=== PATIENT | female | born 1990 | race Caucasian/White ===

== ENCOUNTER 2018-07-11 03:52 | Observation (INO) ==
[2018-07-11] MEDS ORDERED: Piperacil/Tazo 3.375 GM Premix 50 ML IV.SIG ONE (04:58)
[2018-07-11] MEDS ORDERED: Sod Chloride 0.9% Inj 1,000 ML IV.SIG ONE (04:58)
--- NOTE | 2018-07-11 05:31 | ED ---
HPI General Chief complaint: Extremity Injury, Lower Stated complaint: wound on foot Time Seen by Provider: 07/11/18 04:19 Source: patient Mode of arrival: ambulatory Limitations: no limitations History of Present Illness HPI narrative: The patient is a 27 year old female who presents to the [facility] emergency department with a history of an infection in the right foot that began 1 month ago. She went to [facility] 06/05 and was treated with Keflex and Bactrim. It healed well, however 6 days ago, it began to hurt again in the heel and then became red, swollen, and hot to touch along the lateral aspect. She denies any trauma to the area. She went to [facility] again today , and was told that she had a heart murmur, lung infection on chest x-ray, suspicion for sepsis, therefore she would need to be admitted to the hospital. She was told that her loved ones could not stay with her in the hospital, therefore she left AMA. She has had a fever for 2 days with a tmax of 102. She has had chest pain and upper back pain that began 2 days ago. She reports that today she began to have shortness of breath with exertion. She reports that she has had a cough productive of yellow sputum. The patient reports that she is a daily smoker. The patient reports that she does use IV heroin, however she has not injected in her foot. On review of systems otherwise, the patient denies having any neck pain or stiffness, abdominal pain, vomiting, diarrhea, urinary symptoms, or neurologic symptoms. The patient cannot recall when her last menstrual cycle was. She reports that she is concerned that she could be . Related Data Allergies Allergy/AdvReac Type Severity Reaction Status Date / Time No Known Allergies Allergy Verified 07/11/18 03:55 Review of Systems ROS: all other systems reviewed are negative [facility] Medical History Medical History IV drug abuse (Acute) Patient denies medical problems (Acute) Surgical History Surgical History No history of previous surgery (Acute) Social History Social History Substance History: Active Abuse Smoking Status: Current every day smoker Tobacco Type: Cigarettes How Often Do You Have a Drink Containing Alcohol: Never Recent Travel in [facility] within the Last 8 Weeks: No Recent Out of Country Travel within the Last 8 Weeks: No Substance Abuse Detail Heroin: Substance Use Status: Active Route Used Substance Abuse: Intravenously Reason for Use: Calm Down Immunization History Tetanus Immunization: <5 Years Exam Const General: cooperative and well developed Nutritional Appearance: well nourished Orientation: alert, awake and oriented x3 HENMT Head: normocephalic and atraumatic Nose: no nasal discharge and no epistaxis Mouth: moist mucous membranes Throat: posterior oropharynx normal and uvula midline Eyes Sclera: normal sclerae Pupils: PERRL Neck Neck: no meningeal signs, trachea midline and no JVD Resp Effort & Inspection: no use of accessory muscles Auscultation: clear to auscultation bilaterally Cardio Rate: tachycardic (Sinus tachycardia in the low 100s. No pulse deficits to the extremities on simultaneous auscultation and palpation of her radial artery) Rhythm: regular rhythm Heart Sounds: no gallops, murmur (2/6 systolic murmur audible, no gallops or rubs.) systolic and no rubs GI Inspection: non-distended Palpation: soft, no hepatosplenomegaly, no guarding, not rigid and nontender Auscultation: normal bowel sounds Back/Spine/Pelvis Back: no CVA tenderness Cervical Spine: No cervical spinal tenderness Thoracic/Lumbar Spine: No thoracic spinal tenderness and No lumbar spinal tenderness Skin General: dry skin (warm) Neuro General: alert, awake, oriented x3 and other (Grossly nonfocal.) Speech: speech normal Motor: no movement abnormalities noted Extrem General: normal to inspection (Except in the area of interest, the right foot, see below), no calf tenderness, no clubbing, no cyanosis and edema (Right foot is erythematous and edematous. The area of erythema and edema is most prominent on the dorsal aspect along the side of the foot overlying the fourth and fifth metatarsal area. There is warmth and tenderness on palpation. No fluctuance or pointing. On the sole of the foot the patient is noted to have dry cracked skin at the base of the second toe. 2+ pulses in all 4 extremities. ) Laterality: on the right Psych Mood: congruent mood Affect: normal affect Judgment: judgment good Course Consultations Consultation #1: The patient's case including history, pertinent physical examination findings, and laboratory studies were discussed with Dr. Terry. It was agreed that the patient would be admitted to the hospitalist service. Initial Documented Vital Signs Temperature 99.3 F 07/11/18 03:55 Pulse Rate 114 H 07/11/18 03:55 Respiratory Rate 16 07/11/18 03:55 Blood Pressure 111/65 07/11/18 03:55 Pulse Oximetry 98 07/11/18 03:55 Last Documented Vital Signs Temperature 98.5 F 07/11/18 04:44 Pulse Rate 107 H 07/11/18 05:46 Respiratory Rate 14 07/11/18 04:44 Blood Pressure 92/60 L 07/11/18 04:44 Pulse Oximetry 97 07/11/18 05:20 Medical Decision Making MDM Narrative Medical decision making narrative: During the course of the patient's emergency department visit, the patient's history, examination, and differential diagnosis were reviewed with the patient. The patient was placed on a potline monitor with oximetry and frequent blood pressure monitoring. The patient had IV access obtained and blood work sent for analysis. A diagnostic evaluation was started regarding the patient's right foot redness, swelling, and warmth. The patient was initially provided normal saline 1 L IV fluid bolus, broad- spectrum antibiotic to include vancomycin 1 g IV, Zosyn 3.375 g IV. Records from [facility] will be obtained. 100, neutrophils 76.8, chemistries remarkable for sodium of 134The patient's diagnostic evaluation is remarkable for a normal white count of 7.4, hemoglobin 9.7, platelets, potassium 3.2, glucose 126, normal lactic acid at 1.6, calcium 8 , C-reactive protein elevated at 19, albumin 2.4. The patient's chest x-ray reveals interstitial disease which may reflect edema or atypical pneumonia. The patient will be admitted to the hospital for a new heart murmur, history of IV drug use rule out endocarditis with cellulitis involving the right foot. The patient's results were discussed with the patient, including the plan of care. I explained that further testing and/ or monitoring is indicated based on the patient's history, examination, and/ or laboratory findings. Therefore, I recommended admission for additional evaluation. The patient expressed understanding and was agreeable with this plan. The patient was admitted to the hospital in stable condition and sent to a bed under the care of the [facility] service. Medical Screen Exam Complete: Yes Emergency Medical Condition: Yes Differential Diagnosis Differential Diagnosis: Cellulitis, versus deep abscess, versus endocarditis, versus pneumonia, versus pyelonephritis Medical Records Medical records reviewed: Yes I reviewed the patient's medical records. Lab Data Lab results reviewed: Yes I reviewed the patient's lab results. Result diagrams: 07/11/18 05:20 07/11/18 05:20 POC Results POC Urine Results Negative Lab Results 07/11/18 07/11/18 07/11/18 Range/Units 05:20 05:20 05:20 WBC 7.4 (4.0-11.0) th/mm3 RBC 3.80 L (4.00-5.30) mil/mm3 Hgb 9.7 L (11.6-15.3) gm/dL Hct 28.5 L (35.0-46.0) % MCV 75.0 L (80.0-100.0) fL MCH 25.4 L (27.0-34.0) pg MCHC 33.9 (32.0-36.0) % RDW 16.3 (11.6-17.2) % Plt Count 100 L (150-450) th/mm3 MPV 9.0 (7.0-11.0) fL Neut % (Auto) 76.8 H (16.0-70.0) % Lymph % (Auto) 14.2 (9.0-44.0) % Dewitt % (Auto) 7.7 (0.0-8.0) % Eos % (Auto) 0.9 (0.0-4.0) % Baso % (Auto) 0.4 (0.0-2.0) % Neut # (Auto) 5.7 (1.8-7.7) th/mm3 Lymph # (Auto) 1.0 (1.0-4.8) th/mm3 Dewitt # (Auto) 0.6 (0.0-0.9) th/mm3 Eos # (Auto) 0.1 (0.0-0.4) th/mm3 Baso # (Auto) 0.0 (0.0-0.2) th/mm3 WBC Differential . Differential Comment Auto diff final ESR 37 H (0-20) mm/hr Sodium 134 L (136-145) meq/L Potassium 3.2 L (3.5-5.1) meq/L Chloride 102 (98-107) meq/L Carbon Dioxide 24.2 (21.0-32.0) meq/L Anion Gap 8 (5-15) meq/L BUN 8 (7-18) mg/dL Creatinine 0.64 (0.50-1.00) mg/dL Estimated GFR Greater than 89 (>89) mL/min Random Glucose 126 H (74-106) mg/dL Lactic Acid (0.4-2.0) mmol/L Calcium 8.0 L (8.5-10.1) mg/dL Total Bilirubin 0.3 (0.2-1.0) mg/dL AST 26 (15-37) U/L ALT 13 (10-53) U/L Alkaline Phosphatase 107 (45-117) U/L C-Reactive Protein 19.00 H (0.00-0.30) mg/dL Total Protein 6.8 (6.4-8.2) g/dL Albumin 2.4 L (3.4-5.0) g/dL 07/11/18 Range/Units 05:20 WBC (4.0-11.0) th/mm3 RBC (4.00-5.30) mil/mm3 Hgb (11.6-15.3) gm/dL Hct (35.0-46.0) % MCV (80.0-100.0) fL MCH (27.0-34.0) pg MCHC (32.0-36.0) % RDW (11.6-17.2) % Plt Count (150-450) th/mm3 MPV (7.0-11.0) fL Neut % (Auto) (16.0-70.0) % Lymph % (Auto) (9.0-44.0) % Dewitt % (Auto) (0.0-8.0) % Eos % (Auto) (0.0-4.0) % Baso % (Auto) (0.0-2.0) % Neut # (Auto) (1.8-7.7) th/mm3 Lymph # (Auto) (1.0-4.8) th/mm3 Dewitt # (Auto) (0.0-0.9) th/mm3 Eos # (Auto) (0.0-0.4) th/mm3 Baso # (Auto) (0.0-0.2) th/mm3 WBC Differential Differential Comment ESR (0-20) mm/hr Sodium (136-145) meq/L Potassium (3.5-5.1) meq/L Chloride (98-107) meq/L Carbon Dioxide (21.0-32.0) meq/L Anion Gap (5-15) meq/L BUN (7-18) mg/dL Creatinine (0.50-1.00) mg/dL Estimated GFR (>89) mL/min Random Glucose (74-106) mg/dL Lactic Acid 1.6 (0.4-2.0) mmol/L Calcium (8.5-10.1) mg/dL Total Bilirubin (0.2-1.0) mg/dL AST (15-37) U/L ALT (10-53) U/L Alkaline Phosphatase (45-117) U/L C-Reactive Protein (0.00-0.30) mg/dL Total Protein (6.4-8.2) g/dL Albumin (3.4-5.0) g/dL Imaging Data Radiologist's impression: Chest X-Ray 07/11/18 04:59 CONCLUSION: Interstitial disease as above this may reflect edema or atypical pneumonia. Followup examination is recommended if clinically indicated. Discharge Plan Discharge Disposition Patient Disposition: 30 Still Patient Discharge Details Diagnosis: Cellulitis, IVDU (intravenous drug user), Heart murmur Physicians Team ED Provider: Soumya Gaspar Primary Care Provider: UNKNOWN, Attending Provider: Fay Terry Discharge Interventions Interventions: Vital Signs Last Done: 07/11/18 04:44 Status ED Status: Admitted Patient
[2018-07-11 05:50] LABS: Baso % (Auto) 0.4 % (0.0-2.0); Eos # (Auto) 0.1 th/mm3 (0.0-0.4); Eos % (Auto) 0.9 % (0.0-4.0); Hematocrit 28.5 % (35.0-46.0); Hemoglobin 9.7 gm/dL (11.6-15.3); Lymph % (Auto) 14.2 % (9.0-44.0); Mean Corpuscular HGB Conc 33.9 % (32.0-36.0); Mean Corpuscular Hemoglobin 25.4 pg (27.0-34.0); Mono # (Auto) 0.6 th/mm3 (0.0-0.9); Mono % (Auto) 7.7 % (0.0-8.0); Neut # (Auto) 5.7 th/mm3 (1.8-7.7); Neut % (Auto) 76.8 % (16.0-70.0); Platelet Count 100 th/mm3 (150-450); Red Cell Distribution Width 16.3 % (11.6-17.2); White Blood Count 7.4 th/mm3 (4.0-11.0)
--- NOTE | 2018-07-11 06:00 | XR ---
EXAM DATE: 07/11/2018 4:59 AM EDT AGE/SEX: 27 years / Female INDICATIONS: Fever, short of breath. CLINICAL DATA: This is the patient's initial encounter. Patient reports that signs and symptoms have been present for 1 day and indicates a pain score of 5/10. MEDICAL/SURGICAL HISTORY: None. None. COMPARISON: No prior exams available for comparison. FINDINGS: The cardiac silhouette is normal in transverse diameter. There is interstitial disease bilaterally in the lower lobes and perihilar regions which may reflect edema or atypical pneumonia. There is subseg mental atelectasis in the both bases. No pleural effusions are identified. CONCLUSION: Interstitial disease as above this may reflect edema or atypical pneumonia. Followup examination is r ecommended if clinically indicated. Electronically signed by: Primo Andre MD 07/11/2018 5:59 AM EDT
[2018-07-11] MEDS: Vancomycin Inj 1 GM/200 ML PIGGYBACK IV.SIG ONE ×2 (06:04→07:05)
[2018-07-11 06:19] LABS: Albumin 2.4 g/dL (3.4-5.0); Anion Gap 8 meq/L (5-15); Aspartate Aminotransferase 26 U/L (15-37); Blood Urea Nitrogen 8 mg/dL (7-18); Carbon Dioxide 24.2 meq/L (21.0-32.0); Chloride 102 meq/L (98-107); Glomerular Filtration Rate Greater Than 89 mL/min (>89); Glucose,Random 126 mg/dL (74-106); Potassium 3.2 meq/L (3.5-5.1); Sodium 134 meq/L (136-145)
[2018-07-11 06:20] LABS: Alanine Aminotransferase 13 U/L (10-53)
[2018-07-11 06:22] LABS: Alkaline Phosphatase 107 U/L (45-117); Total Protein 6.8 g/dL (6.4-8.2)
[2018-07-11] MEDS ORDERED: Bisacodyl 10 MG Supp RECTAL PRN (06:43)
[2018-07-11] MEDS ORDERED: Vancomycin Consult Pharmacy OTHER PRN (06:47)
[2018-07-11] MEDS ORDERED: Ketorolac Inj 30 MG/ML (IVP) Vial IV.PUSH PRN (06:48)
[2018-07-11] MEDS ORDERED: Sodium Chloride 0.9% 2 ML Flush PRN IV.FLUSH (07:17)
[2018-07-11 07:57] LABS: Bacteria,Urine Occasional /hpf; Bilirubin,Urine Negative (Negative); Clarity,Urine Hazy (Clear); Color,Urine Yellow (Yellw/Straw); Glucose,Urine (UA) Negative (Negative); Leukocyte Esterase,Urine Large (Negative); Nitrite,Urine Negative (Negative); Specific Gravity,Urine 1.011 (1.002-1.035); Squamous Epithelial Cell,Urine 1 /hpf (0-5)
[2018-07-11] MEDS ORDERED: Vancomycin Inj 1,000 MG in Sodium Chlor 0.9% Inj 250 ML IV.SIG ONE (08:00)
[2018-07-11] MEDS ORDERED: Senna/Docusate Sodium 8.6/50 MG Tablet PO SCH (09:00)
[2018-07-11] MEDS ORDERED: Sodium Chloride 0.9% 2 ML Flush BID IV.FLUSH SCH (09:00)
[2018-07-11] MEDS ORDERED: Sod Chloride 0.9% Inj 1,000 ML IV.CONT SCH (09:45)
[2018-07-11] MEDS ORDERED: Piperacil/Tazo 3.375 GM Premix 50 ML IV.SIG SCH (12:00)
[2018-07-11] MEDS ORDERED: Morphine Sulfate 15 MG SR Tablet PO PRN (12:09)
--- NOTE | 2018-07-11 12:26 | P.HPIM ---
History of Present Illness Primary Care Physician: UNKNOWN History of Present Illness: Mrs. Weaver is a 27 year old female. She is admitted secondary to right foot cellulitis, she is also found to have urinary tract infection. However, given her history of IV drug abuse she is at risk for infective endocarditis as an etiology. Originally she was at [facility] and at that time she was septic. She does not meet sepsis criteria upon arrival and admitted to our hospital. The patient reports that she was told at [facility] that she would not be allowed any visitors, including family and parents, unless she was intubated and that if she want visitors she should come to [facility]. At [facility] he suspected that she had infective endocarditis. She does not complain of any pain but feels she might be starting early withdrawal. She reports using low amounts of heroin feels that her withdrawals might not be too bad. She has a previous infection of the same foot. At that time she had a fungal infection which turned into an open wound at the plantar surface of her middle toes. She was treated with Bactrim and Keflex as an outpatient several weeks ago and says that her infection resolved. Recently she has had a recurrence of redness and swelling including the dorsal surface of the foot and is not locating the exact same spot as the previous infection. He denies any needle use at that foot. Chest x-ray also shows evidence of possible pneumonia further raising suspicion for infective endocarditis. - Diagnosis (1) Cellulitis (2) IVDU (intravenous drug user) (3) Heart murmur Review of Systems Constitutional: fevers, no chills no night sweats, no fatigue, no weakness Eyes: No eye pain, no blurry vision, no loss of vision ENT: No sore throat, no ear pain, no rhinorrhea Cardiovascular: No chest pain, tachycardia, no palpitations, no shortness of breath, no syncope Respiratory: No wheezing, no cough, no shortness of breath, rapid respiratory rate Gastrointestinal: No abdominal pain, no black tarry stools, no bright red blood per rectum, no vomiting, no diarrhea Musculoskeletal: No joint pain, no muscle cramps, no stiffness Integumentary: No rash, no ulcers, no drainage, redness and swelling at right foot Neurologic: No sensory loss, no loss of motor function, no dizziness Psychiatric: No behavioral changes, no hallucinations, no suicidal ideations PMF - History History Provided By: Patient - Medical History Medical History: Medical History (Last Reviewed 07/11/18 @ 06:52 by Soumya Gaspar MD) IV drug abuse Patient denies medical problems - Surgical History Surgical History: Surgical History (Last Reviewed 07/11/18 @ 06:52 by Soumya Gaspar MD) No history of previous surgery - Family History Family History: Family History (Last Updated 07/11/18 @ 12:18 by Apolinar Salas MD) Other Osteoarthritis - Tobacco History Tobacco Use In Past 30 Days: Yes Smoking Status: Current every day smoker Tobacco Type: Cigarettes - Alcohol History How Often Do You Have a Drink Containing Alcohol: Never - Substance Use History Substance History: Active Abuse - Substance Use Type Heroin Status: Active Route Used: Intravenously Reason for Use: Calm Down - Travel History Recent Travel in the [place] Within the Last 8 Weeks: No Recent Travel Out of the Country Within the Last 8 Weeks: No - Immunization History Tetanus Immunization: <5 Years Medications and Allergies Active Medications: Active Medications Al Hydroxide/Mg Hydroxide (Milk Of Magnesia Liq) 30 ml PO Q12H PRN PRN Reason: Mild Constipation Bisacodyl (Dulcolax Supp) 10 mg RECTAL DAILY PRN PRN Reason: SEVERE CONSITIPATION Piperacillin/Tazobactam/Dextrose (Zosyn 3.375 Gm Premix) 50 mls @ 100 mls/hr IV.SIG Q6H EVANGELIST Sodium Chloride (Ns Inj) 1,000 mls @ 100 mls/hr IV.CONT .Q10H [facility]ANGELIST Ketorolac Tromethamine (Toradol Inj) 15 mg IV.PUSH Q6H PRN PRN Reason: PAIN SCALE 1 TO 10 Stop: 07/16/18 06:47 Lactulose (Lactulose Liq) 30 ml PO DAILY PRN PRN Reason: SEVERE CONSITIPATION Pharmacy Profile Note (Vancomycin Consult Pharmacy) 1 each OTHER UNSCH PRN PRN Reason: Pharmacy to dose Senna/Docusate Sodium (Sravanthi-Colace) 1 tab PO BID [facility] Last Admin: 07/11/18 08:06 Dose: Not Given Sennosides (Senokot) 17.2 mg PO Q12H PRN PRN Reason: Moderate Constipation Sodium Chloride (Ns Flush) 2 ml IV.FLUSH BID [facility] Last Admin: 07/11/18 08:06 Dose: 2 ml Sodium Chloride (Ns Flush) 2 ml IV.FLUSH PRN PRN PRN Reason: FLUSH AFTER USING IV ACCESS Allergies Allergy/AdvReac Type Severity Reaction Status Date / Time No Known Allergies Allergy Verified 07/11/18 03:55 Exam Vital signs: Vital Signs 07/11/18 03:55 07/11/18 04:44 07/11/18 05:20 Temperature 99.3 F 98.5 F Pulse Rate 114 H 103 H Respiratory Rate 16 14 Blood Pressure 111/65 92/60 L Pulse Oximetry 98 97 97 07/11/18 05:46 07/11/18 07:31 Temperature Pulse Rate 107 H 81 Respiratory Rate 21 Blood Pressure 89/50 L Pulse Oximetry 97 Intake & Output 07/10/18 07/11/18 07/11/18 18:59 06:59 18:59 Intake Total 1050 / 1050 Balance 1050 / 1050 Weight 78 kg Intake: IV 1050 / 1050 Zosyn 3.375 GM Premix 50 ML @ 50 / 50 100 mls/hr IV.SIG ONCE ONE Rx#: [id number] NS Inj 1,000 ML @ Wide Open IV. 1000 / 1000 SIG BOLUS ONE Rx#:[id number] Narrative: GENERAL: NAD, A&Ox3 HEAD: Normocephalic. NECK: Supple, trachea midline. No lymphadenopathy. EYES: No scleral icterus. No injection or drainage. CARDIOVASCULAR: Regular rate and rhythm, audible systolic cardiac murmur, gallops, or rubs. Louder than average Heart sounds. RESPIRATORY: Breath sounds equal bilaterally. No accessory muscle use. GASTROINTESTINAL: Abdomen soft, non-tender, nondistended. MUSCULOSKELETAL: No cyanosis, or edema. SKIN: Warm and dry. NEURO: No focal neurological deficits. Results - Labs CBC & Chem 7: 07/11/18 05:20 07/11/18 05:20 Labs: Short CBC 07/11/18 Range/Units 05:20 WBC 7.4 (4.0-11.0) th/mm3 Hgb 9.7 L (11.6-15.3) gm/dL Hct 28.5 L (35.0-46.0) % Plt Count 100 L (150-450) th/mm3 BMP 07/11/18 05:20 Sodium 134 L Potassium 3.2 L Chloride 102 Carbon Dioxide 24.2 BUN 8 Creatinine 0.64 Calcium 8.0 L Liver Function 07/11/18 Range/Units 05:20 Total Bilirubin 0.3 (0.2-1.0) mg/dL AST 26 (15-37) U/L ALT 13 (10-53) U/L Alkaline Phosphatase 107 (45-117) U/L Albumin 2.4 L (3.4-5.0) g/dL Urine 07/11/18 Range/Units 04:20 Urine Color Yellow (Yellw/Straw) Urine Clarity Hazy H (Clear) Urine pH 6.0 (5.0-8.5) Ur Specific [place] 1.011 (1.002-1.035) Urine Protein Negative (Neg-Trace) mg/dL Urine Glucose (UA) Negative (Negative) mg/dL - Imaging Impressions Chest X-Ray 07/11/18 04:59 CONCLUSION: Interstitial disease as above this may reflect edema or atypical pneumonia. Followup examination is recommended if clinically indicated. Caprini VTE Risk Assessment Caprini VTE Risk Assessment: Moderate/High Risk (score >= 2) Caprini Risk Assessment Model: Point Value = 1 Point Value = 2 Point Value = 3 Point Value = 5 Age 41-60 Minor surgery BMI > 25 kg/m2 Swollen legs Varicose veins or History of unexplained or recurrent spontaneous Oral contraceptives or hormone replacement Sepsis (< 1 month) Serious lung disease, including pneumonia (< 1 month) Abnormal pulmonary function Acute myocardial infarction Congestive heart failure (< 1 month) History of inflammatory bowel disease Medical patient at bed rest Age 61-74 Arthroscopic surgery Major open surgery (> 45 min) Laparoscopic surgery (> 45 min) Malignancy Confined to bed (> 72 hours) Immobilizing plaster cast Central venous access Age >= 75 History of VTE Family history of VTE Factor V Leiden Prothrombin 52744C Lupus anticoagulant Anticardiolipin antibodies Elevated serum homocysteine Heparin-induced thrombocytopenia Other congenital or acquired thrombophilia Stroke (< 1 month) Elective arthroplasty Hip, pelvis, or leg fracture Acute spinal cord injury (< 1 month) Prophylaxis Regimen: Total Risk Factor Score Risk Level Prophylaxis Regimen 0-1 Low Early ambulation 2 Moderate Order ONE of the following: *Sequential Compression Device (SCD) *Heparin 5000 units SQ BID 3-4 Higher Order ONE of the following medications: *Heparin 5000 units SQ TID *Enoxaparin/Lovenox 40 mg SQ daily (WT < 150 kg, CrCl > 30 mL/min) *Enoxaparin/Lovenox 30 mg SQ daily (WT < 150 kg, CrCl > 10-29 mL/min) *Enoxaparin/Lovenox 30 mg SQ BID (WT < 150 kg, CrCl > 30 mL/min) AND/OR *Sequential Compression Device (SCD) 5 or more Highest Order ONE of the following medications: *Heparin 5000 units SQ TID (Preferred with Epidurals) *Enoxaparin/Lovenox 40 mg SQ daily (WT < 150 kg, CrCl > 30 mL/min) *Enoxaparin/Lovenox 30 mg SQ daily (WT < 150 kg, CrCl > 10-29 mL/min) *Enoxaparin/Lovenox 30 mg SQ BID (WT < 150 kg, CrCl > 30 mL/min) AND *Sequential Compression Device (SCD) Assessment and Plan - Assessment (1) Cellulitis Code(s): L03.90 - Cellulitis, unspecified Status: Acute (2) IVDU (intravenous drug user) Code(s): F19.90 - Other psychoactive substance use, unspecified, uncomplicated Status: Acute (3) Heart murmur Code(s): R01.1 - Cardiac murmur, unspecified Status: Acute - Plan 27-year-old female admitted secondary to right foot cellulitis, UTI and suspected pneumonia. Suspected infective endocarditis with a history of IV drug abuse. Recent Sepsis Present, when fever was present Monitor for recurrence Treat infections Right foot cellulitis Continue vancomycin Probiotics Follow clinically for improvement Urinary tract infection Zosyn Follow urine culture Probiotics Possible pneumonia Etiology potentially related to infective endocarditis Vancomycin Zosyn Follow clinically Suspected infective endocarditis Echocardiogram Follow blood cultures Continue vancomycin If echo is positive or if blood cultures positive, will consider an ID consulti If severe cardiomyopathy is present, will consider a cardiology consult IV drug abuse Opioid withdraw Patient counseled to quit PRN long-acting morphine for any signs of withdrawal (Morphine SR, 15mg Q12hr PRN withdraw symptoms) Patient's blood pressure precludes ability to use clonidine for withdrawal Obtain: Hepatitis Panel, HIV screen, testing Hypotension IV hydration initiated Follow blood pressures DVT prophylaxis Heparin (1) Cellulitis Qualifiers: Site of cellulitis: extremity Site of cellulitis of extremity: lower extremity Laterality: right Qualified Code(s): L03.115 - Cellulitis of right lower limb
--- NOTE | 2018-07-11 12:41 | ECHRPT ---
Indication: POSS SEPSIS, ENDOCARDITIS CONCLUSIONS Normal left ventricular size. Wall thickness is normal. The left ventricular systolic function is normal with an estimated ejection fraction in the range of 55-60%. Trace aortic valve regurgitation. Findings consistent with vegetation on the tricuspid valve. There is moderate tricuspid regurgitation. The estimated pulmonary arterial pressure is 33.8 mmHg. Mild pulmonary valve regurgitation. 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 BP: / HR: Rhythm: Sinus MEASUREMENTS (Male / Female) Normal Values Technical Quality:Fair 2D ECHO LV Diastolic Diameter PLAX 4.9 cm 4.2 - 5.9 / 3.9 - 5.3 cm LV Systolic Diameter PLAX 3.5 cm IVS Diastolic Thickness 0.8 cm 0.6 - 1.0 / 0.6 - 0.9 cm LVPW Diastolic Thickness 0.8 cm 0.6 - 1.0 / 0.6 - 0.9 cm LV Relative Wall Thickness 0.3 RV Internal Dim ED PLAX 3.4 cm LVOT Diameter 1.9 cm Aortic Root Diameter 2.7 cm LA Systolic Diameter LX 3.6 cm 3.0 - 4.0 / 2.7 - 3.8 cm M-MODE AV Cusp Separation MM 1.9 cm DOPPLER AV Peak Velocity 136.0 cm/s AV Peak Gradient 7.4 mmHg AV Mean Gradient 4.0 mmHg AV Velocity Time Integral 23.4 cm LVOT Peak Velocity 105.0 cm/s LVOT Peak Gradient 4.4 mmHg LVOT Velocity Time Integral 19.7 cm AV Area Cont Eq vti 2.4 cm AV Area Cont Eq pk 2.2 cm LV E' Lateral Velocity 15.2 cm/s LV E' Septal Velocity 12.3 cm/s TR Peak Velocity 244.0 cm/s TR Peak Gradient 23.8 mmHg Right Atrial Pressure 10.0 mmHg Pulmonary Artery Systolic Pressu 33.8 mmHg Right Ventricular Systolic Press 33.8 mmHg PV Peak Velocity 82.7 cm/s PV Peak Gradient 2.7 mmHg FINDINGS LEFT VENTRICLE Normal left ventricular size. Wall thickness is normal. The left ventricular systolic function is normal with an estimated ejection fraction in the range of 55-60%. RIGHT VENTRICLE Normal right ventricular size and systolic function. LEFT ATRIUM The left atrial size is normal. RIGHT ATRIUM The right atrial size is normal. ATRIAL SEPTUM No atrial level shunt is demonstrated by color flow Doppler interrogation. AORTA The aortic root and proximal ascending aorta are normal in size on limited imaging. MITRAL VALVE Structurally normal mitral valve. No mitral valve stenosis or regurgitation. AORTIC VALVE Trace aortic valve regurgitation. Trileaflet aortic valve. TRICUSPID VALVE Findings consistent with vegetation on the tricuspid valve about 1cm non-septal leaflet. There is moderate tricuspid regurgitation. The estimated pulmonary arterial pressure is 33.8 mmHg. PULMONARY VALVE Mild pulmonary valve regurgitation. VESSELS The inferior vena cava is normal in size. PERICARDIUM No pericardial effusion. El Gaspar MD (Electronically Signed) Final Date:11 July 2018 12:40
[2018-07-11] MEDS ORDERED: Lactobacillus Acidophilus/L. Spores Tablet PO SCH (13:00)
[2018-07-11] MEDS ORDERED: Vancomycin Inj 1,000 MG in Sodium Chlor 0.9% Inj 250 ML IV.SIG SCH (16:00)
[2018-07-11 17:22] VITALS: BP 109/61; PULSE 101; RESP 16; TEMP 97.8; O2SAT 98
--- NOTE | 2018-07-11 18:31 | P.AMA ---
AMA Note - Diagnosis (1) Cellulitis (2) IVDU (intravenous drug user) (3) Heart murmur Recommended Treatment Course: Patient recommended to stay for antibiotics for treatment of possible infective endocarditis (echo results pending) to prevent permanent heart damage of . She left AMA. AMA Statement: Patient Francy Weaver has decided to leave the hospital against medical advice. This patient has the capacity to refuse care and understands the risks of leaving, including permanent disability and/or , and has had an opportunity to ask questions about his/her condition. The patient has been informed that he/she may return for care at any time, and follow up has been arranged/advised. Discharge Disposition: Against Medical Advice
[2018-07-11] MEDS ORDERED: Heparin - SQ 10,000 UNITS/ML Vial SQ SCH (21:00)
[2018-07-12] MEDS ORDERED: Pharmacy Ordered Lab Info OTHER ONE (07:45)
== END 2018-07-11 18:21 | disposition left against medical advice (07) ==
LOC: NEPC 03:52 → NEDA 06:36 → INTOOBSV 06:36 → N07 08:22
PROVIDERS: ADMIT Hospitalist; ATTEND Hospitalist

== ENCOUNTER 2018-07-12 16:12 | Inpatient (IN) ==
--- NOTE | 2018-07-12 17:15 | ED ---
HPI General Chief complaint: Skin/Abscess/Foreign Body Stated complaint: poss blood infection per pt Time Seen by Provider: 07/12/18 17:10 Source: patient Mode of arrival: ambulatory Limitations: no limitations History of Present Illness HPI narrative: Patient signed herself out yesterday, but today when she woke up and started to feel her arm tingling in her leg hurting more the patient decided to come in again. This time the patient states that she will not leave AMA as she is very scared for her life. Of particular note this patient has also signed himself sign herself AGAINST MEDICAL ADVICE out of [facility] as well. Patient reports that she uses IV heroin and that since her foot started hurting she does not use that site anymore. Onset (ago): day(s) (6) Radiation: other Severity: moderate Severity scale (1-10): 6 Quality: sharp Pain Consistency: constant Relieving factors: none Exacerbating factors: movement Associated symptoms: Reports other Treatments prior to arrival: Reports other Related Data Home Medications Medication Instructions Recorded Confirmed No Known Home Medications 07/12/18 07/12/18 Allergies Allergy/AdvReac Type Severity Reaction Status Date / Time No Known Allergies Allergy Verified 07/12/18 16:21 Review of Systems ROS: all other systems reviewed are negative PMFSH Medical History Medical History MDRO (multiple drug resistant organisms) resistance (Acute ~07/11/18) IV drug abuse (Acute) Patient denies medical problems (Acute) Surgical History Surgical History No history of previous surgery (Acute) Family History Family History Other Osteoarthritis Social History Social History Substance History: Active Abuse Second Hand Smoke Exposure: Yes Smoking Status: Current every day smoker Tobacco Type: Cigarettes How Often Do You Have a Drink Containing Alcohol: Never Recent Travel in [place] within the Last 8 Weeks: No Recent Out of Country Travel within the Last 8 Weeks: No Substance Abuse Detail Heroin: Route Used Substance Abuse: Intravenously Reason for Use: Calm Down Immunization History Tetanus Immunization: >5 Years Exam Narrative Exam Narrative: GENERAL: Well-nourished, well-developed patient in no apparent distress. SKIN: Warm and dry. Track lakhani noted throughout HEAD: Atraumatic. Normocephalic. EYES: Pupils equal and round. No scleral icterus. No injection or drainage. ENT: No nasal bleeding or discharge. Mucous membranes pink and moist. NECK: Trachea midline. No JVD. CARDIOVASCULAR: Tachycardic rate regular rhythm.... Holosystolic murmur noted without gallops RESPIRATORY: No accessory muscle use. Clear to auscultation. Breath sounds equal bilaterally. GASTROINTESTINAL: Abdomen soft, non-tender, nondistended. No rebound or guarding MUSCULOSKELETAL: Extremities without clubbing, cyanosis, or right lower extremity foot and mid tib-fib on right has 2+ edema associated with erythema and warmth but without any streaking or fluctuance. No obvious deformities. NEUROLOGICAL: Awake and alert. No obvious cranial nerve deficits. Motor grossly within normal limits. Five out of 5 muscle strength in the arms and legs. Normal speech. PSYCHIATRIC: Appropriate mood and affect; insight and judgment normal. Course Initial Documented Vital Signs Temperature 98.4 F 07/12/18 16:17 Pulse Rate 107 H 07/12/18 16:17 Respiratory Rate 18 07/12/18 16:17 Blood Pressure 106/65 07/12/18 16:17 Pulse Oximetry 98 07/12/18 16:17 Last Documented Vital Signs Temperature 98.4 F 07/17/18 04:00 Pulse Rate 65 07/17/18 04:00 Respiratory Rate 20 07/17/18 04:00 Blood Pressure 121/77 07/17/18 04:00 Pulse Oximetry 92 L 07/17/18 04:00 Medical Decision Making MDM Narrative Medical Screen Exam Complete: Yes Emergency Medical Condition: Yes Medical Records Medical records reviewed: Yes I reviewed the patient's medical records. Lab Data Lab results reviewed: Yes I reviewed the patient's lab results. Result diagrams: 07/17/18 03:54 07/17/18 03:54 POC Results POC Urine Results Negative Lab Results 07/12/18 07/12/18 07/12/18 Range/Units 16:15 16:15 16:15 WBC 7.8 (4.0-11.0) th/mm3 RBC 4.42 (4.00-5.30) mil/mm3 Hgb 11.2 L (11.6-15.3) gm/dL Hct 34.0 L (35.0-46.0) % MCV 76.9 L (80.0-100.0) fL MCH 25.3 L (27.0-34.0) pg MCHC 32.9 (32.0-36.0) % RDW 16.6 (11.6-17.2) % Plt Count 121 L (150-450) th/mm3 MPV 8.9 (7.0-11.0) fL Neut % (Auto) 78.0 H (16.0-70.0) % Lymph % (Auto) 15.3 (9.0-44.0) % Hill % (Auto) 5.8 (0.0-8.0) % Eos % (Auto) 0.7 (0.0-4.0) % Baso % (Auto) 0.2 (0.0-2.0) % Neut # (Auto) 6.1 (1.8-7.7) th/mm3 Lymph # (Auto) 1.2 (1.0-4.8) th/mm3 Hill # (Auto) 0.5 (0.0-0.9) th/mm3 Eos # (Auto) 0.1 (0.0-0.4) th/mm3 Baso # (Auto) 0.0 (0.0-0.2) th/mm3 WBC Differential . Differential Comment Auto diff final ESR (0-20) mm/hr Sodium 134 L (136-145) meq/L Potassium 3.5 (3.5-5.1) meq/L Chloride 100 (98-107) meq/L Carbon Dioxide 28.5 (21.0-32.0) meq/L Anion Gap 6 (5-15) meq/L BUN 7 (7-18) mg/dL Creatinine 0.84 (0.50-1.00) mg/dL Estimated GFR 81 L (>89) mL/min Random Glucose 122 H (74-106) mg/dL Calcium 8.8 D (8.5-10.1) mg/dL Iron (50-170) mcg/dL TIBC (250-450) mcg/dL % Saturation (20-50) % Ferritin (8-252) ng/mL Total Bilirubin (0.2-1.0) mg/dL Direct Bilirubin (0.0-0.2) mg/dL Indirect Bilirubin (0.0-0.8) mg/dL AST (15-37) U/L ALT (10-53) U/L Alkaline Phosphatase (45-117) U/L Total Protein (6.4-8.2) g/dL Albumin (3.4-5.0) g/dL Beta HCG, Qual (0-5) mIU/mL Urine Color Yellow (Yellw/Straw) Urine Clarity Hazy H (Clear) Urine pH 5.0 (5.0-8.5) Ur Specific [place] 1.023 (1.002-1.035) Urine Protein 100 H (Neg-Trace) mg/dL Urine Glucose (UA) Negative (Negative) mg/dL Urine Ketones Negative (Negative) mg/dL Urine Occult Blood Negative (Negative) Urine Nitrate Negative (Negative) Urine Bilirubin Negative (Negative) Urine Urobilinogen 2.0 H (Less than 2) mg/dL Ur Leukocyte Esterase Moderate H (Negative) Urine RBC 2 (0-3) /hpf Urine WBC 77 H (0-5) /hpf Ur Squamous Epith Cells 3 (0-5) /hpf Ur Transition Epith Cell <1 (None) /hpf Urine Bacteria Few H (None) /hpf Hyaline Casts 4 (0-3) /lpf Urine Mucus Few H (Occasional) /lpf Micro UA Comment Culture indicated Ur Microscopic Review Not Reportable Urine Culture Comments Culture indicated Vancomycin Trough (5.0-10.0) mcg/mL 07/12/18 07/12/18 07/12/18 Range/Units 16:15 16:15 16:15 WBC (4.0-11.0) th/mm3 RBC (4.00-5.30) mil/mm3 Hgb (11.6-15.3) gm/dL Hct (35.0-46.0) % MCV (80.0-100.0) fL MCH (27.0-34.0) pg MCHC (32.0-36.0) % RDW (11.6-17.2) % Plt Count (150-450) th/mm3 MPV (7.0-11.0) fL Neut % (Auto) (16.0-70.0) % Lymph % (Auto) (9.0-44.0) % Hill % (Auto) (0.0-8.0) % Eos % (Auto) (0.0-4.0) % Baso % (Auto) (0.0-2.0) % Neut # (Auto) (1.8-7.7) th/mm3 Lymph # (Auto) (1.0-4.8) th/mm3 Hill # (Auto) (0.0-0.9) th/mm3 Eos # (Auto) (0.0-0.4) th/mm3 Baso # (Auto) (0.0-0.2) th/mm3 WBC Differential Differential Comment ESR 58 H (0-20) mm/hr Sodium (136-145) meq/L Potassium (3.5-5.1) meq/L Chloride (98-107) meq/L Carbon Dioxide (21.0-32.0) meq/L Anion Gap (5-15) meq/L BUN (7-18) mg/dL Creatinine (0.50-1.00) mg/dL Estimated GFR (>89) mL/min Random Glucose (74-106) mg/dL Calcium (8.5-10.1) mg/dL Iron 48 L (50-170) mcg/dL TIBC 319 (250-450) mcg/dL % Saturation 15.0 L (20-50) % Ferritin 100 (8-252) ng/mL Total Bilirubin 0.4 (0.2-1.0) mg/dL Direct Bilirubin 0.1 (0.0-0.2) mg/dL Indirect Bilirubin 0.3 (0.0-0.8) mg/dL AST 20 (15-37) U/L ALT 18 (10-53) U/L Alkaline Phosphatase 148 H (45-117) U/L Total Protein 8.1 D (6.4-8.2) g/dL Albumin 2.7 L (3.4-5.0) g/dL Beta HCG, Qual Less than 1.0 (0-5) mIU/mL Urine Color (Yellw/Straw) Urine Clarity (Clear) Urine pH (5.0-8.5) Ur Specific [place] (1.002-1.035) Urine Protein (Neg-Trace) mg/dL Urine Glucose (UA) (Negative) mg/dL Urine Ketones (Negative) mg/dL Urine Occult Blood (Negative) Urine Nitrate (Negative) Urine Bilirubin (Negative) Urine Urobilinogen (Less than 2) mg/dL Ur Leukocyte Esterase (Negative) Urine RBC (0-3) /hpf Urine WBC (0-5) /hpf Ur Squamous Epith Cells (0-5) /hpf Ur Transition Epith Cell (None) /hpf Urine Bacteria (None) /hpf Hyaline Casts (0-3) /lpf Urine Mucus (Occasional) /lpf Micro UA Comment Ur Microscopic Review Urine Culture Comments Vancomycin Trough (5.0-10.0) mcg/mL 07/14/18 07/16/18 07/17/18 Range/Units 06:13 05:30 03:54 WBC 5.6 (4.0-11.0) th/mm3 RBC 3.95 L (4.00-5.30) mil/mm3 Hgb 9.9 L (11.6-15.3) gm/dL Hct 30.5 L (35.0-46.0) % MCV 77.2 L (80.0-100.0) fL MCH 25.2 L (27.0-34.0) pg MCHC 32.6 (32.0-36.0) % RDW 17.3 H (11.6-17.2) % Plt Count 215 D (150-450) th/mm3 MPV 7.7 (7.0-11.0) fL Neut % (Auto) 54.5 (16.0-70.0) % Lymph % (Auto) 38.4 (9.0-44.0) % Hill % (Auto) 5.3 (0.0-8.0) % Eos % (Auto) 0.7 (0.0-4.0) % Baso % (Auto) 1.1 (0.0-2.0) % Neut # (Auto) 3.1 (1.8-7.7) th/mm3 Lymph # (Auto) 2.2 (1.0-4.8) th/mm3 Hill # (Auto) 0.3 (0.0-0.9) th/mm3 Eos # (Auto) 0.0 (0.0-0.4) th/mm3 Baso # (Auto) 0.1 (0.0-0.2) th/mm3 WBC Differential . Differential Comment Auto diff final ESR (0-20) mm/hr Sodium (136-145) meq/L Potassium (3.5-5.1) meq/L Chloride (98-107) meq/L Carbon Dioxide (21.0-32.0) meq/L Anion Gap (5-15) meq/L BUN (7-18) mg/dL Creatinine 0.55 0.56 (0.50-1.00) mg/dL Estimated GFR Greater than 89 Greater than 89 (>89) mL/min Random Glucose (74-106) mg/dL Calcium (8.5-10.1) mg/dL Iron (50-170) mcg/dL TIBC (250-450) mcg/dL % Saturation (20-50) % Ferritin (8-252) ng/mL Total Bilirubin (0.2-1.0) mg/dL Direct Bilirubin (0.0-0.2) mg/dL Indirect Bilirubin (0.0-0.8) mg/dL AST (15-37) U/L ALT (10-53) U/L Alkaline Phosphatase (45-117) U/L Total Protein (6.4-8.2) g/dL Albumin (3.4-5.0) g/dL Beta HCG, Qual (0-5) mIU/mL Urine Color (Yellw/Straw) Urine Clarity (Clear) Urine pH (5.0-8.5) Ur Specific [place] (1.002-1.035) Urine Protein (Neg-Trace) mg/dL Urine Glucose (UA) (Negative) mg/dL Urine Ketones (Negative) mg/dL Urine Occult Blood (Negative) Urine Nitrate (Negative) Urine Bilirubin (Negative) Urine Urobilinogen (Less than 2) mg/dL Ur Leukocyte Esterase (Negative) Urine RBC (0-3) /hpf Urine WBC (0-5) /hpf Ur Squamous Epith Cells (0-5) /hpf Ur Transition Epith Cell (None) /hpf Urine Bacteria (None) /hpf Hyaline Casts (0-3) /lpf Urine Mucus (Occasional) /lpf Micro UA Comment Ur Microscopic Review Urine Culture Comments Vancomycin Trough 3.9 L 16.7 H (5.0-10.0) mcg/mL 07/17/18 Range/Units 03:54 WBC (4.0-11.0) th/mm3 RBC (4.00-5.30) mil/mm3 Hgb (11.6-15.3) gm/dL Hct (35.0-46.0) % MCV (80.0-100.0) fL MCH (27.0-34.0) pg MCHC (32.0-36.0) % RDW (11.6-17.2) % Plt Count (150-450) th/mm3 MPV (7.0-11.0) fL Neut % (Auto) (16.0-70.0) % Lymph % (Auto) (9.0-44.0) % Hill % (Auto) (0.0-8.0) % Eos % (Auto) (0.0-4.0) % Baso % (Auto) (0.0-2.0) % Neut # (Auto) (1.8-7.7) th/mm3 Lymph # (Auto) (1.0-4.8) th/mm3 Hill # (Auto) (0.0-0.9) th/mm3 Eos # (Auto) (0.0-0.4) th/mm3 Baso # (Auto) (0.0-0.2) th/mm3 WBC Differential Differential Comment ESR (0-20) mm/hr Sodium 136 (136-145) meq/L Potassium 4.0 (3.5-5.1) meq/L Chloride 102 (98-107) meq/L Carbon Dioxide 30.6 (21.0-32.0) meq/L Anion Gap 3 L (5-15) meq/L BUN 5 L (7-18) mg/dL Creatinine 0.57 (0.50-1.00) mg/dL Estimated GFR Greater than 89 (>89) mL/min Random Glucose 88 (74-106) mg/dL Calcium 8.2 L (8.5-10.1) mg/dL Iron (50-170) mcg/dL TIBC (250-450) mcg/dL % Saturation (20-50) % Ferritin (8-252) ng/mL Total Bilirubin 0.2 (0.2-1.0) mg/dL Direct Bilirubin (0.0-0.2) mg/dL Indirect Bilirubin (0.0-0.8) mg/dL AST 16 (15-37) U/L ALT 12 (10-53) U/L Alkaline Phosphatase 77 (45-117) U/L Total Protein 6.9 D (6.4-8.2) g/dL Albumin 2.1 L (3.4-5.0) g/dL Beta HCG, Qual (0-5) mIU/mL Urine Color (Yellw/Straw) Urine Clarity (Clear) Urine pH (5.0-8.5) Ur Specific [place] (1.002-1.035) Urine Protein (Neg-Trace) mg/dL Urine Glucose (UA) (Negative) mg/dL Urine Ketones (Negative) mg/dL Urine Occult Blood (Negative) Urine Nitrate (Negative) Urine Bilirubin (Negative) Urine Urobilinogen (Less than 2) mg/dL Ur Leukocyte Esterase (Negative) Urine RBC (0-3) /hpf Urine WBC (0-5) /hpf Ur Squamous Epith Cells (0-5) /hpf Ur Transition Epith Cell (None) /hpf Urine Bacteria (None) /hpf Hyaline Casts (0-3) /lpf Urine Mucus (Occasional) /lpf Micro UA Comment Ur Microscopic Review Urine Culture Comments Vancomycin Trough (5.0-10.0) mcg/mL Imaging Data Attestation: I personally reviewed and interpreted this imaging study as follows : Radiologist's impression: Abdomen Ultrasound 07/12/18 00:00 CONCLUSION: 1. No ascites. Abdomen/Bladder Ultrasound 07/12/18 00:00 CONCLUSION: 1. Splenomegaly. 2. Mild right renal pelviectasis. Foot CT 07/12/18 00:00 CONCLUSION: 1. Extensive soft tissue swelling of the foot especially on the dorsum and laterally most characteristic of cellulitis with suspected abscess around the fifth metatarsal head measuring up to 2 cm in diameter. No CT findings for osteomyelitis. Discharge Plan Discharge Disposition Patient Disposition: 30 Still Patient Discharge Condition Condition: Fair Discharge Details Diagnosis: Endocarditis Physicians Team ED Provider: Gene Savage Primary Care Provider: Primary Care Blake,Lety Attending Provider: Sukhdev Villalta Other Providers: Arvin Painter Dennis B Status ED Status: Left Department Discharge Information Discharge Date/Time: 07/12/18 18:55
[2018-07-12] MEDS ORDERED: Vancomycin Inj 1 GM/200 ML PIGGYBACK IV.SIG ONE (17:19)
[2018-07-12] MEDS ORDERED: Vancomycin Inj 1,000 MG in Sodium Chlor 0.9% Inj 250 ML IV.SIG ONE (17:30)
[2018-07-12] MEDS ORDERED: Sod Chloride 0.9% Inj 1,000 ML IV.CONT SCH (17:30)
[2018-07-12 17:45] LABS: Baso % (Auto) 0.2 % (0.0-2.0); Eos # (Auto) 0.1 th/mm3 (0.0-0.4); Eos % (Auto) 0.7 % (0.0-4.0); Hemoglobin 11.2 gm/dL (11.6-15.3); Lymph # (Auto) 1.2 th/mm3 (1.0-4.8); Lymph % (Auto) 15.3 % (9.0-44.0); Mean Corpuscular HGB Conc 32.9 % (32.0-36.0); Mean Corpuscular Hemoglobin 25.3 pg (27.0-34.0); Mean Corpuscular Volume 76.9 fL (80.0-100.0); Mean Platelet Volume 8.9 fL (7.0-11.0); Mono # (Auto) 0.5 th/mm3 (0.0-0.9); Mono % (Auto) 5.8 % (0.0-8.0); Neut # (Auto) 6.1 th/mm3 (1.8-7.7); Platelet Count 121 th/mm3 (150-450); Red Blood Count 4.42 mil/mm3 (4.00-5.30); Red Cell Distribution Width 16.6 % (11.6-17.2); White Blood Count 7.8 th/mm3 (4.0-11.0)
[2018-07-12 17:59] LABS: Bacteria,Urine Few /hpf; Bilirubin,Urine Negative (Negative); Clarity,Urine Hazy (Clear); Color,Urine Yellow (Yellw/Straw); Glucose,Urine (UA) Negative (Negative); Hyaline Casts,Urine 4 /lpf (0-3); Leukocyte Esterase,Urine Moderate (Negative); Mucus,Urine Few /lpf (Occasional); Nitrite,Urine Negative (Negative); Specific Gravity,Urine 1.023 (1.002-1.035); Squamous Epithelial Cell,Urine 3 /hpf (0-5); Transitional Epi Cells,Urine <1 /hpf
--- NOTE | 2018-07-12 17:59 | P.HP ---
History of Present Illness Service: [facility] service Chief Complaint: Fever chills History of Present Illness: Patient is a 27-year-old female who admits to IV drug use heroin injected to the left AC area last use was this morning who came to the hospital because of fever and chills. Patient was admitted July 11 here for right foot infection. Review of records shows blood cultures to be positive for gram- positive cocci 4 out of 4 bottles on July 10. An echo was also done which showed positive tricuspid valve vegetation. ESR was 37. CRP 96. Patient left AMA. \ On further history patient was actually admitted to [facility] about 4 or 5 weeks ago because of sepsis which is secondary to a right foot infection. Patient states that she was discharged on Keflex plus Bactrim which she took for 10 days and this improved /resolved. About 3-4 days prior to admission redness of the foot recurred. Patient denies injecting any drugs to this foot. Associated with fever and chills came back to the ER on July 10. And as mentioned sign out AGAINST MEDICAL ADVICE. Patient also has history of hep C diagnosed in 2017. Patient states she was also tested for HIV then which was negative. She mentioned about some plan for treatment for Hep C but did not push through Patient has been amenorrheic for 4 months. Patient also complains of abdominal fullness. Denies any melena or hematochezia. Admitted for further evaluation and management Inpatient Certification: I certify that the inpatient services were ordered in accordance with Medicare regulations governing the order. This includes certification that hospital inpatient services are reasonable and necessary and in the case of services not specified as inpatient-only under 42 CFR 419.22(n), that they are appropriately provided as inpatient services in accordance to with the 2-midnight benchmark under 43 CFR 412.3(e) Estimated Total Length of Stay (Days): 2 Plans for Post Hospital Care: Not yet determined Review of Systems Positive fever chills denies any nausea vomiting but complains of abdominal fullness. Denies any melena or hematochezia. PMFSH - History History Provided By: Patient - Medical History Medical History: Medical History (Last Updated 07/14/18 @ 07:36 by Luiza Miles) MDRO (multiple drug resistant organisms) resistance Onset Date: ~07/11/18 IV drug abuse Patient denies medical problems - Surgical History Surgical History: Surgical History (Last Reviewed 07/12/18 @ 17:25 by Gene Savage) No history of previous surgery - Family History Family History: Family History (Last Reviewed 07/12/18 @ 17:25 by Gene Savage) Other Osteoarthritis - Tobacco History Second Hand Smoke Exposure: Yes Tobacco Use In Past 30 Days: Yes Smoking Status: Current every day smoker Tobacco Type: Cigarettes - Alcohol History How Often Do You Have a Drink Containing Alcohol: Never - Substance Use History Substance History: Active Abuse - Substance Use Type Heroin Route Used: Intravenously Reason for Use: Calm Down - Travel History Recent Travel in the [place] Within the Last 8 Weeks: No Recent Travel Out of the Country Within the Last 8 Weeks: No - Immunization History Tetanus Immunization: >5 Years Medications and Allergies Active Medications: Active Medications Sodium Chloride (Ns Inj) 1,000 mls @ 125 mls/hr IV.CONT .Q8H [facility] Stop: 07/13/18 01:29 Last Admin: 07/12/18 17:46 Dose: 125 mls/hr Vancomycin HCl 1,000 mg/ (Sodium Chloride) 250 mls @ 200 mls/hr IV.SIG ONCE ONE Stop: 07/12/18 18:44 Last Admin: 07/12/18 17:46 Dose: 200 mls/hr Allergies Allergy/AdvReac Type Severity Reaction Status Date / Time No Known Allergies Allergy Verified 07/12/18 16:21 Home Medications Medication Instructions Recorded Confirmed Type No Known Home Medications 07/12/18 07/12/18 History Exam Vital signs: Vital Signs 07/12/18 16:17 Temperature 98.4 F Pulse Rate 107 H Respiratory Rate 18 Blood Pressure 106/65 Pulse Oximetry 98 Intake & Output 07/11/18 07/12/1818 18:59 06:59 18:59 Weight 54.431 kg Narrative: Awake alert oriented x3 not in any acute distress Anicteric sclerae Neck was supple no JVD no bruit no lymphadenopathy Chest lungs bilateral breath sounds decreased no rales no wheezes Regular rhythm tachycardic soft 3/6 systolic murmur left sternal border Abdomen- soft, slightly distended, good bowel sounds Extremities right foot swelling, + hot to touch, swollen lateral malleolar area positive erythema on the lateral aspect of the foot + tenderness and mild induration. Moves all extremities toes equally. Results - Labs CBC & Chem 7: 07/12/18 16:15 07/16/18 05:30 Labs: Laboratory Results - last 24 hr 07/12/18 16:15 WBC 7.8 RBC 4.42 Hgb 11.2 L Hct 34.0 L MCV 76.9 L MCH 25.3 L MCHC 32.9 RDW 16.6 Plt Count 121 L MPV 8.9 Neut % (Auto) 78.0 H Lymph % (Auto) 15.3 [place] % (Auto) 5.8 Eos % (Auto) 0.7 Baso % (Auto) 0.2 Neut # (Auto) 6.1 Lymph # (Auto) 1.2 [place] # (Auto) 0.5 Eos # (Auto) 0.1 Baso # (Auto) 0.0 WBC Differential . Differential Comment Auto diff final Caprini VTE Risk Assessment Caprini VTE Risk Assessment: No/Low Risk (score <= 1) ([facility]) Caprini Risk Assessment Model: Point Value = 1 Point Value = 2 Point Value = 3 Point Value = 5 Age 41-60 Minor surgery BMI > 25 kg/m2 Swollen legs Varicose veins or History of unexplained or recurrent spontaneous Oral contraceptives or hormone replacement Sepsis (< 1 month) Serious lung disease, including pneumonia (< 1 month) Abnormal pulmonary function Acute myocardial infarction Congestive heart failure (< 1 month) History of inflammatory bowel disease Medical patient at bed rest Age 61-74 Arthroscopic surgery Major open surgery (> 45 min) Laparoscopic surgery (> 45 min) Malignancy Confined to bed (> 72 hours) Immobilizing plaster cast Central venous access Age >= 75 History of VTE Family history of VTE Factor V Leiden Prothrombin [id number] Lupus anticoagulant Anticardiolipin antibodies Elevated serum homocysteine Heparin-induced thrombocytopenia Other congenital or acquired thrombophilia Stroke (< 1 month) Elective arthroplasty Hip, pelvis, or leg fracture Acute spinal cord injury (< 1 month) Prophylaxis Regimen: Total Risk Factor Score Risk Level Prophylaxis Regimen 0-1 Low Early ambulation 2 Moderate Order ONE of the following: *Sequential Compression Device (SCD) *Heparin 5000 units SQ BID 3-4 Higher Order ONE of the following medications: *Heparin 5000 units SQ TID *Enoxaparin/Lovenox 40 mg SQ daily (WT < 150 kg, CrCl > 30 mL/min) *Enoxaparin/Lovenox 30 mg SQ daily (WT < 150 kg, CrCl > 10-29 mL/min) *Enoxaparin/Lovenox 30 mg SQ BID (WT < 150 kg, CrCl > 30 mL/min) AND/OR *Sequential Compression Device (SCD) 5 or more Highest Order ONE of the following medications: *Heparin 5000 units SQ TID (Preferred with Epidurals) *Enoxaparin/Lovenox 40 mg SQ daily (WT < 150 kg, CrCl > 30 mL/min) *Enoxaparin/Lovenox 30 mg SQ daily (WT < 150 kg, CrCl > 10-29 mL/min) *Enoxaparin/Lovenox 30 mg SQ BID (WT < 150 kg, CrCl > 30 mL/min) AND *Sequential Compression Device (SCD) Assessment and Plan - Plan 27-year-old female with Gram-positive sepsis secondary IV drug use Tricuspid valve endocarditis Right foot cellulitis rule out abscess -Get repeat blood cultures -ESR was 37. CRP was 19. -Start patient on IV vancomycin - Get a CT of the right foot- r/o abscess - Podiatry consult if positive for any deeper tissue collection/ infection - Consult infectious disease service for recommendation -Start IV Vancomycin - consult pharmacy Persistent pyuria. - get US of the kidneys/bladder - Reviewed urine culture from July 11 no growth in 24 hours - We will follow urine cultures sent from ER from today Abdominal distention suspicious for ascites history of hepatitis C cirrhosis - get US - check for ascites - tap if significant Anemia likely from chronic disease microcytic - Check iron studies IVDU= patient counselled extensively
[2018-07-12 18:04] LABS: Calcium 8.8 mg/dL (8.5-10.1); Carbon Dioxide 28.5 meq/L (21.0-32.0); Potassium 3.5 meq/L (3.5-5.1)
[2018-07-12] MEDS ORDERED: Vancomycin Consult Pharmacy OTHER PRN (18:15)
--- NOTE | 2018-07-12 18:21 | CT ---
EXAM DATE: 07/12/2018 5:49 PM EDT AGE/SEX: 27 years / Female INDICATIONS: Pain and possible infection in right foot. CLINICAL DATA: This is the patient's initial encounter. Patient reports that signs and symptoms have been present for 2 days and indicates a pain score of 10/10. MEDICAL/SURGICAL HISTORY: . IV drug user. None. RADIATION DOSE: 7.29 CTDI (mGy) COMPARISON: No prior exams available for comparison. TECHNIQUE: Multiple contiguous axial images were acquired using a multirow detector CT scanner witho ut contrast. Multiplanar reconstruction was performed in the sagittal and coronal planes. Using auto mated exposure control and adjustment of the mA and/or kV according to patient size, radiation dose w as kept as low as reasonably achievable to obtain optimal diagnostic quality images. DICOM format im age data is available electronically for review and comparison. FINDINGS: There is fairly extensive soft tissue swelling on the dorsum foot and extending laterally over the fo ot and also laterally over the ankle. There is a suspected loculated fluid collection around the fift h metatarsal head measuring up to 2.1 cm in diameter which may represent a subcutaneous abscess. No b rebekah destructive change identified to suggest osteomyelitis on CT no acute fracture or dislocation. CONCLUSION: 1. Extensive soft tissue swelling of the foot especially on the dorsum and laterally most characteri stic of cellulitis with suspected abscess around the fifth metatarsal head measuring up to 2 cm in di ameter. No CT findings for osteomyelitis. Electronically signed by: Kong Borja MD 07/12/2018 6:20 PM EDT
[2018-07-12 19:06] LABS: Albumin 2.7 g/dL (3.4-5.0)
[2018-07-12 19:09] LABS: Total Protein 8.1 g/dL (6.4-8.2)
--- NOTE | 2018-07-12 20:23 | US ---
EXAM DATE: 07/12/2018 12:00 AM EDT AGE/SEX: 27 years / Female INDICATIONS: Persistent pyuria. CLINICAL DATA: This is the patient's initial encounter. Patient reports that signs and symptoms have been present for 2 days and indicates a pain score of 0/10. MEDICAL/SURGICAL HISTORY: Hepatitis C. Cirrhosis. Sepsis. IVDU. None. COMPARISON: No prior exams available for comparison. MEASUREMENTS: Right Kidney:__12.6 x 4.9 x 5.8 cm Left Kidney:__11.2 x 5.3 x 6.5 cm FINDINGS: Right Kidney: Mild pelviectasis. No focal mass. Left Kidney: Normal echotexture and cortical thickness. No mass or hydronephrosis. Bladder: Within normal limits given the degree of distension. Other: Spleen is enlarged up to 17.1 cm. CONCLUSION: 1. Splenomegaly. 2. Mild right renal pelviectasis. Electronically signed by: Benja Dodson MD 07/12/2018 8:22 PM EDT
--- NOTE | 2018-07-12 20:25 | US ---
EXAM DATE: 07/12/2018 12:00 AM EDT AGE/SEX: 27 years / Female INDICATIONS: Abdominal distention with a history of Hepatitis C. CLINICAL DATA: This is the patient's initial encounter. Patient reports that signs and symptoms have been present for 1 day and indicates a pain score of 0/10. MEDICAL/SURGICAL HISTORY: Hepatitis C. Cirrhosis. Sepsis. IVDU. None. COMPARISON: [facility], [place] KIDNEY/RENAL/BLADDER, 07/12/2018. . FINDINGS: Masses: None Fluid Collections: None Other: None. CONCLUSION: 1. No ascites. Electronically signed by: Benja Dodson MD 07/12/2018 8:24 PM EDT
[2018-07-12] MEDS: Acetaminophen 325 MG Tablet PO PRN (23:20)
[2018-07-13] MEDS ORDERED: Sodium Chloride 0.9% 2 ML Flush PRN IV.FLUSH (01:40)
[2018-07-13] MEDS: Acetaminophen 325 MG Tablet PO PRN ×2 (03:33→12:50)
[2018-07-13] MEDS: Vancomycin Inj 1,000 MG in Sodium Chlor 0.9% Inj 250 ML IV.SIG SCH ×2 (05:48→17:20)
[2018-07-13] MEDS: Sodium Chloride 0.9% 2 ML Flush BID IV.FLUSH SCH ×2 (09:25→20:16)
--- NOTE | 2018-07-13 10:21 | P.PN ---
Subjective Interval history: feels "weak" going for OR today- Podiatry procedure T max 102. 3 midnight- now 99 Physical Exam Vital signs: Vital Signs 07/12/18 16:17 07/12/18 18:30 07/12/18 20:00 Temperature 98.4 F 100.4 F H Pulse Rate 107 H 127 H 122 H Respiratory Rate 18 16 16 Blood Pressure 106/65 140/77 Pulse Oximetry 98 95 96 07/12/18 22:00 07/13/18 00:00 07/13/18 04:00 Temperature 103.0 F H 102.3 F H 98.3 F Pulse Rate 110 H 93 H Respiratory Rate 16 16 Blood Pressure 110/55 L 101/65 Pulse Oximetry 93 L 95 07/13/18 04:52 07/13/18 08:00 Temperature 99.0 F Pulse Rate 89 98 H Respiratory Rate 20 Blood Pressure 120/79 Pulse Oximetry 95 Intake & Output 07/12/18 07/13/18 07/13/18 18:59 06:59 18:59 Intake Total 1979 / 1979 Output Total 300 / 300 Balance 1680 / 1680 Weight 54.431 kg 55.3 kg Intake: IV 1500 / 1500 NS Inj 1,000 ML @ 125 mls/hr IV 1000 / 1000 .CONT .Q8H [facility] Rx#:[id number] Vancomycin Inj 1,000 MG In NS 500 / 500 Inj 250 ML @ 250 mls/hr IV.SIG Q12H [facility] Rx#:[id number] Oral 480 / 480 Output: Urine 300 / 300 Other: Weight On Admission 54.431 kg Narrative: Awake alert oriented x3 not in any acute distress Anicteric sclerae Neck was supple no JVD no bruit no lymphadenopathy Chest lungs bilateral breath sounds decreased no rales no wheezes Regular rhythm tachycardic soft 3/6 systolic murmur left sternal border Abdomen- soft, slightly distended, good bowel sounds Extremities right foot swelling, + hot to touch, swollen lateral malleolar area positive erythema on the lateral aspect of the foot + tenderness and mild induration. Moves all extremities toes equally. Results - Labs CBC & Chem 7: 07/12/18 16:15 07/12/18 16:15 Laboratory Results - last 24 hr 07/12/18 07/12/18 07/12/18 16:15 16:15 16:15 WBC 7.8 RBC 4.42 Hgb 11.2 L Hct 34.0 L MCV 76.9 L MCH 25.3 L MCHC 32.9 RDW 16.6 Plt Count 121 L MPV 8.9 Neut % (Auto) 78.0 H Lymph % (Auto) 15.3 [place] % (Auto) 5.8 Eos % (Auto) 0.7 Baso % (Auto) 0.2 Neut # (Auto) 6.1 Lymph # (Auto) 1.2 [place] # (Auto) 0.5 Eos # (Auto) 0.1 Baso # (Auto) 0.0 WBC Differential . Differential Comment Auto diff final ESR Sodium 134 L Potassium 3.5 Chloride 100 Carbon Dioxide 28.5 Anion Gap 6 BUN 7 Creatinine 0.84 Estimated GFR 81 L Random Glucose 122 H Calcium 8.8 D Iron TIBC % Saturation Ferritin Total Bilirubin Direct Bilirubin Indirect Bilirubin AST ALT Alkaline Phosphatase Total Protein Albumin Beta HCG, Qual Urine Color Yellow Urine Clarity Hazy H Urine pH 5.0 Ur Specific [place] 1.023 Urine Protein 100 H Urine Glucose (UA) Negative Urine Ketones Negative Urine Occult Blood Negative Urine Nitrate Negative Urine Bilirubin Negative Urine Urobilinogen 2.0 H Ur Leukocyte Esterase Moderate H Urine RBC 2 Urine WBC 77 H Ur Squamous Epith Cells 3 Ur Transition Epith Cell <1 Urine Bacteria Few H Hyaline Casts 4 Urine Mucus Few H Micro UA Comment Culture indicated Ur Microscopic Review Not Reportable Urine Culture Comments Culture indicated 07/12/18 07/12/18 07/12/18 16:15 16:15 16:15 WBC RBC Hgb Hct MCV MCH MCHC RDW Plt Count MPV Neut % (Auto) Lymph % (Auto) [place] % (Auto) Eos % (Auto) Baso % (Auto) Neut # (Auto) Lymph # (Auto) [place] # (Auto) Eos # (Auto) Baso # (Auto) WBC Differential Differential Comment ESR 58 H Sodium Potassium Chloride Carbon Dioxide Anion Gap BUN Creatinine Estimated GFR Random Glucose Calcium Iron 48 L TIBC 319 % Saturation 15.0 L Ferritin 100 Total Bilirubin 0.4 Direct Bilirubin 0.1 Indirect Bilirubin 0.3 AST 20 ALT 18 Alkaline Phosphatase 148 H Total Protein 8.1 D Albumin 2.7 L Beta HCG, Qual Less than 1.0 Urine Color Urine Clarity Urine pH Ur Specific [place] Urine Protein Urine Glucose (UA) Urine Ketones Urine Occult Blood Urine Nitrate Urine Bilirubin Urine Urobilinogen Ur Leukocyte Esterase Urine RBC Urine WBC Ur Squamous Epith Cells Ur Transition Epith Cell Urine Bacteria Hyaline Casts Urine Mucus Micro UA Comment Ur Microscopic Review Urine Culture Comments Microbiology 07/12/18 16:15 Blood - Peripheral Aerobic Blood Culture - Preliminary gram positive cocci 07/12/18 16:15 Blood - Peripheral Anaerobic Blood Culture - Preliminary gram positive cocci 07/12/18 16:15 Blood - Peripheral Aerobic Blood Culture - Preliminary gram positive cocci 07/12/18 16:15 Blood - Peripheral Anaerobic Blood Culture - Preliminary gram positive cocci - Imaging Impressions Abdomen Ultrasound 07/12/18 00:00 CONCLUSION: 1. No ascites. Abdomen/Bladder Ultrasound 07/12/18 00:00 CONCLUSION: 1. Splenomegaly. 2. Mild right renal pelviectasis. Foot CT 07/12/18 00:00 CONCLUSION: 1. Extensive soft tissue swelling of the foot especially on the dorsum and laterally most characteristic of cellulitis with suspected abscess around the fifth metatarsal head measuring up to 2 cm in diameter. No CT findings for osteomyelitis. Assessment and Plan - Plan 27-year-old female with Gram-positive sepsis secondary IV drug use Tricuspid valve endocarditis Right foot cellulitis rule out abscess -Get repeat blood cultures -ESR was 37. CRP was 19. -Start patient on IV vancomycin - Get a CT of the right foot- r/o abscess - Podiatry consult if positive for any deeper tissue collection/ infection - Consult infectious disease service for recommendation -Start IV Vancomycin - consult pharmacy Persistent pyuria. - get US of the kidneys/bladder - Reviewed urine culture from July 11 no growth in 24 hours - We will follow urine cultures sent from ER from today history of hepatitis C cirrhosis - US- no ascites Anemia microcytic - low iron/feritin stores - start Iron 325 mg bid IVDU= patient counselled extensively
[2018-07-13] MEDS: Ferrous Sulfate 325 MG Tablet PO SCH ×2 (14:34→20:15)
--- NOTE | 2018-07-13 14:38 | MB ---
cc: Arvin Painter MD DATE: 07/13/2018 REQUESTING PHYSICIAN: Dr. Villalta. REASON FOR CONSULTATION: Gram-positive bacteremia, positive tricuspid valve vegetation. HISTORY OF PRESENT ILLNESS: This is a 27-year-old white female who presented to the emergency department on 2 occasions. The patient presented on 07/11/2018 and she was complaining of right foot injury and pain. The patient is an IV drug user. She reports that she was evaluated at [facility] on the day before she presented to the emergency department here on 07/11/2018. She had a wound on her right foot, which had recurred with erythema. She had previously been treated at [facility] on 06/05/2018 and was given antibiotic outpatient p.o. She reports that the cellulitis of her foot, which was being treated, improved. She notes that she contacted water and the same area became infected again and she went to [facility] for evaluation on 07/09/2018. It was recommended that she be admitted to the hospital for treatment. However, she states that she was not happy because they were not going to allow her to have visitors and she left the hospital and came to [place] the following day. On 07/11/2018 when she arrived at [place], she was evaluated and blood cultures were taken. She reported having fevers and also pain in the upper back and shortness of breath. The patient left against medical advice. Blood cultures were taken on 07/11/2018 and the results show MRSA. The patient was home overnight and she came back the following day because she was having tingling in her arm and also pain in her right foot where she has erythema and swelling. She states that she used IV drugs while she was out of the hospital again. It was found that the blood culture had bacteria from 07/11/2018. Repeated blood cultures were again taken on admission yesterday and it has gram-positive cocci in all 4 bottles. Urinalysis yesterday showed increased white cells. Urinalysis from 07/11/2018 had increased white cells and again repeated urinalysis on 07/12/2018 had increased white cells as well. Urine culture is pending. The white blood cell count is normal. The patient states that she was feeling like she had withdrawal symptoms. She had a temperature of 103 degrees yesterday. Denies prior history of bacteria in the blood. She notes that she uses heroin IV. PAST MEDICAL HISTORY: IV drug abuse. Denies medical problems. ALLERGIES: NO KNOWN DRUG ALLERGIES. MEDICATIONS: 1. Vancomycin. 2. Tylenol p.r.n. SOCIAL HISTORY: Positive tobacco use. No alcohol. Positive IV drug abuse. The patient has a 4-year-old daughter. REVIEW OF SYSTEMS: All systems have been reviewed and are negative except for that mentioned in the history of present illness. PHYSICAL EXAMINATION: GENERAL: She is a thin female who is in no acute distress. She is awake, alert and oriented. She looks clinically ill. VITAL SIGNS: Temperature 100.3, BP 126/77, respirations 20, heart rate 116. HEENT: The head is atraumatic. Extraocular movements grossly intact. Pupils reactive to light. No icterus. No conjunctival erythema. Oropharynx: Moist mucosa. No thrush. No lesions. NECK: Supple without adenopathy. HEART: A 1/6 systolic murmur at the left sternal border. ABDOMEN: Bowel sounds present. Soft, nontender. RECTAL: Not performed. EXTREMITIES: The right foot has swelling at the fifth toe and at the lateral aspect of the foot beyond the fifth toe. There is erythema and increased warmth and significant tenderness on palpation. No petechial or embolic lesion visible. SKIN: The skin has no diffuse rash. NEUROLOGIC: Nonfocal. PSYCHIATRIC: The patient is calm and cooperative. LABORATORY DATA: WBC 7.8, platelet count 121, hemoglobin 11.2. Sedimentation rate 58, creatinine 0.84. Estimated GFR 81. Sodium 134, AST and ALT normal. IMAGIN. CT scan of the foot shows extensive soft tissue swelling, especially in the dorsum and laterally most characteristic of cellulitis with suspected abscess around the fifth metatarsal head, measuring up to 2 cm in diameter. 2. Abdominal ultrasound revealed splenomegaly. There was also moderate tricuspid regurgitation. IMPRESSION: 1. 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 2. Cellulitis and abscess of the right foot, probably secondary to seeding from endocarditis. 3. Persistent fever. 4. Persistent bacteremia. 5. Probable urinary tract infection. RECOMMENDATIONS: 1. Continue vancomycin. 2. Monitor the blood cultures including sensitivity of the MRSA. 3. Monitor temperature. 4. Monitor urine culture. 5. Monitor clinical status. 6. Repeat blood cultures to check for clearance tomorrow. 7. The patient will need IV antibiotic treatment for endocarditis. Thank you for this consultation. Further recommendations will be made upon followup. I have reviewed the laboratory data, radiographic studies and microbiologic data in making treatment recommendations on this patient. MD USMAN Mann/melanie , 02:03 PM , 02:22 PM
[2018-07-13] MEDS ORDERED: Chlorhexidine Gluconate 2% 1 Pack (2 Cloths) TOPICAL SCH (15:29)
[2018-07-13] MEDS ORDERED: Metoprolol Tartrate 25 MG Tablet PO SCH (15:29)
[2018-07-13] MEDS ORDERED: Sodium Chlor 0.9% Inj 500 ML IV.SIG SCH (16:00)
[2018-07-13] MEDS ORDERED: Bupivacaine 0.25% Inj 50 ML MDV Vial ONE (18:56)
--- NOTE | 2018-07-13 19:30 | P.CONPOD ---
History of Present Illness Service: Podiatry Consult date: 07/13/18 Reason for Consult: right foot abscess Primary Care Provider: No Primary Care Physician Chief Complaint: Fever chills History of Present Illness: Patient has failed out patient antibiotics for right foot infection. Denies injecting drugs into the area. She has had increased pain/redness to the outer right foot. Review of Systems All other systems reviewed negative except as stated in HPI PMFSH - History History Provided By: Patient - Medical History Medical History: Medical History (Last Updated 07/14/18 @ 07:36 by Luiza Miles) MDRO (multiple drug resistant organisms) resistance Onset Date: ~07/11/18 IV drug abuse Patient denies medical problems - Surgical History Surgical History: Surgical History (Last Reviewed 07/12/18 @ 17:25 by Gene Savage) No history of previous surgery - Family History Family History: Family History (Last Reviewed 07/12/18 @ 17:25 by Gene Savage) Other Osteoarthritis - Tobacco History Second Hand Smoke Exposure: Yes Tobacco Use In Past 30 Days: Yes Smoking Status: Current every day smoker Tobacco Type: Cigarettes - Alcohol History How Often Do You Have a Drink Containing Alcohol: Never - Substance Use History Substance History: Active Abuse - Substance Use Type Heroin Status: Active Route Used: Intravenously Frequency: daily Reason for Use: Calm Down - Travel History Recent Travel in the [place] Within the Last 8 Weeks: No Recent Travel Out of the Country Within the Last 8 Weeks: No - Immunization History Tetanus Immunization: >5 Years Tetanus Immunization Year if Known: 2017 Hx Influenza Vaccine This Season: No Medications and Allergies Active Medications: Active Medications Acetaminophen (Tylenol) 650 mg PO Q4H PRN PRN Reason: temp > 100.4 Last Admin: 07/13/18 12:50 Dose: 650 mg Chlorhexidine Gluconate (Chlorhexidine 2% Cloth) 3 pack TOPICAL CARDIAC CATH TECHNICIAN [facility] Stop: 07/14/18 15:28 Ferrous Sulfate (Ferosul) 325 mg PO BID [facility] Last Admin: 07/13/18 14:34 Dose: Not Given Vancomycin HCl 1,000 mg/ (Sodium Chloride) 250 mls @ 250 mls/hr IV.SIG Q12H [facility] Last Infusion: 07/13/18 18:37 Dose: Infused Lactated Ringer's (Lr 1000 Ml Inj) 1,000 mls @ 30 mls/hr IV.SIG .Q24H [facility] Stop: 07/14/18 15:29 Last Admin: 07/13/18 17:20 Dose: 30 mls/hr Sodium Chloride (Ns Inj) 500 mls @ 30 mls/hr IV.SIG .[id number] [facility] Stop: 07/14/18 08:39 Last Admin: 07/13/18 18:38 Dose: Not Given Metoprolol Tartrate (Lopressor) 25 mg PO CARDIAC CATH TECHNICIAN [facility] Stop: 07/14/18 15:28 Miscellaneous Information [place] [place] Info[place] 1 each OTHER ONCE ONE Stop: 07/14/18 05:46 Pharmacy Profile Note (Vancomycin Consult Pharmacy) 1 each OTHER UNSCH PRN PRN Reason: Pharmacy to dose Povidone Iodine (Betadine 5% Antisepsis Kit) 1 applicatio EACH [facility] CARDIAC CATH TECHNICIAN [facility] Stop: 07/14/18 15:28 Sodium Chloride (Ns Flush) 2 ml IV.FLUSH BID [facility] Last Admin: 07/13/18 09:25 Dose: 2 ml Sodium Chloride (Ns Flush) 2 ml IV.FLUSH PRN PRN PRN Reason: FLUSH AFTER USING IV ACCESS Allergies Allergy/AdvReac Type Severity Reaction Status Date / Time No Known Allergies Allergy Verified 07/12/18 16:21 Home Medications Medication Instructions Recorded Confirmed Type No Known Home Medications 07/12/18 07/12/18 History Physical Exam Vital signs: Vital Signs 07/12/18 20:00 07/12/18 22:00 07/13/18 00:00 Temperature 100.4 F H 103.0 F H 102.3 F H Pulse Rate 122 H 110 H Respiratory Rate 16 16 Blood Pressure 140/77 110/55 L Pulse Oximetry 96 93 L 07/13/18 04:00 07/13/18 04:52 07/13/18 08:00 Temperature 98.3 F 99.0 F Pulse Rate 93 H 89 88 Respiratory Rate 16 20 Blood Pressure 101/65 120/79 Pulse Oximetry 95 95 07/13/18 12:00 07/13/18 13:04 07/13/18 16:00 Temperature 100.3 F H 102.7 F H 98.8 F Pulse Rate 109 H 94 H Respiratory Rate 20 20 Blood Pressure 126/77 110/71 Pulse Oximetry 95 96 Intake & Output 07/13/18 07/13/18 07/14/18 06:59 18:59 06:59 Intake Total 1979 / 1979 250 / 250 Output Total 300 / 300 Balance 1680 / 1680 250 / 250 Weight 55.3 kg Intake: IV 1500 / 1500 250 / 250 NS Inj 1,000 ML @ 125 mls/hr IV 1000 / 1000 .CONT .Q8H [facility] Rx#:[id number] Vancomycin Inj 1,000 MG In NS 500 / 500 250 / 250 Inj 250 ML @ 250 mls/hr IV.SIG Q12H [facility] Rx#:[id number] Oral 480 / 480 Output: Urine 300 / 300 Other: # Voids 2 Weight On Admission 54.431 kg Results - Labs CBC & Chem 7: 07/12/18 16:15 07/14/18 06:13 Laboratory Results - last 24 hr 07/12/18 16:15 ESR 58 H Microbiology 07/12/18 16:15 Clean Catch Urine Urine Culture - Preliminary No growth in 24 hours 07/12/18 16:15 Blood - Peripheral Aerobic Blood Culture - Preliminary gram positive cocci 07/12/18 16:15 Blood - Peripheral Anaerobic Blood Culture - Preliminary gram positive cocci 07/12/18 16:15 Blood - Peripheral Aerobic Blood Culture - Preliminary gram positive cocci 07/12/18 16:15 Blood - Peripheral Anaerobic Blood Culture - Preliminary gram positive cocci - Imaging Impressions Abdomen Ultrasound 07/12/18 00:00 CONCLUSION: 1. No ascites. Abdomen/Bladder Ultrasound 07/12/18 00:00 CONCLUSION: 1. Splenomegaly. 2. Mild right renal pelviectasis. Assessment and Plan - Assessment (1) Abscess of right foot Code(s): L02.611 - Cutaneous abscess of right foot Status: Acute Plan: to OR for I&D abscess right foot Risks, benefits, complications discussed with patient
[2018-07-13] MEDS ORDERED: Lidocaine PF 1% Inj 5 ML Syringe OTHER ONE (19:37)
[2018-07-13] MEDS ORDERED: Ketorolac Inj 30 MG/ML (IVP) Vial IV.PUSH ONE (19:37)
[2018-07-13] MEDS ORDERED: fentaNYL Citrate Inj 100 MCG/2 ML Ampul ONE (20:15)
[2018-07-13] MEDS ORDERED: Morphine Inj 4 MG/ML Vial ONE (20:16)
--- NOTE | 2018-07-13 20:19 | P.BOP ---
- Preoperative Diagnosis (1) Abscess of right foot - Postoperative Diagnosis (1) Abscess of right foot Date of procedure: 07/13/18 Procedure: Incision and drainage of abscess right foot Incision made over 5th metatarsal head area, dorsolaterally, and subcutaneous abscess encountered with purulent drainage. Culture taken, irrigation with 3L normal saline, and nylon suture with 1/4'' iodoform gauze packing applied in the area. Dressing applied. No tourniquet utilized. Weightbearing as tolerated right foot in surgical shoe. No further surgery anticipated Packing to be changed daily per nursing and at home upon discharge. Await cultures to guide antibiotic choice Anesthesia: GETA, local (10mL 0.25% marcaine plain) Surgeon: Dorita Bang DPM Automatic Equipment Technician: staff Estimated blood loss (mL): 5 Pathology: other (culture right foot) Condition: stable Disposition: PACU
[2018-07-13] MEDS ORDERED: *Meperidine Inj 25 MG/ML Vial PERIprocedural Use ONLY ONE (20:23)
[2018-07-14] MEDS: Acetaminophen 325 MG Tablet PO PRN (01:45)
[2018-07-14] MEDS ORDERED: Pharmacy Ordered Lab Info OTHER ONE (05:45)
[2018-07-14] MEDS: Vancomycin Inj 1,000 MG in Sodium Chlor 0.9% Inj 250 ML IV.SIG SCH (06:17)
[2018-07-14 06:53] LABS: Glomerular Filtration Rate Greater Than 89 mL/min (>89); Vancomycin,Trough 3.9 mcg/mL (5.0-10.0)
[2018-07-14] MEDS: Sodium Chloride 0.9% 2 ML Flush BID IV.FLUSH SCH ×2 (09:30→21:21)
[2018-07-14] MEDS: Dextrose 5%/NaCl 0.9% Inj 1,000 ML IV.CONT SCH ×2 (09:48→20:38)
--- NOTE | 2018-07-14 10:48 | P.PNID ---
Subjective Remarks: Patient states she feels better. Reports that his shoulders and not as achy. Reports less pain in the right foot. Blood culture 07/12/2018 has gram-positive cocci ID pending. Blood culture from 07/11/2018 has MRSA. Afebrile. Admitted with tingling in her arm and also pain in her right foot where she had erythema and swelling. She is an IV drug user. Blood cultures are positive for MRSA. Echocardiogram showed tricuspid valve vegetation. Allergies/Adverse Reactions: Allergies No Known Allergies Allergy (Verified 07/12/18 16:21) Objective Vital Signs 07/13/18 12:00 07/13/18 13:04 07/13/18 16:00 Temperature 100.3 F H 102.7 F H 98.8 F Pulse Rate 109 H 94 H Respiratory Rate 20 20 Blood Pressure 126/77 110/71 Pulse Oximetry 95 96 07/13/18 20:00 07/13/18 20:05 07/13/18 20:10 Temperature 99.1 F 99.3 F Pulse Rate 99 H 93 H 93 H Respiratory Rate 18 18 24 Blood Pressure 110/56 L 90/52 L 100/58 L Pulse Oximetry 96 92 L 98 07/13/18 20:15 07/13/18 20:30 07/14/18 00:00 Temperature 99.0 F 97.8 F Pulse Rate 94 H 96 H 73 Respiratory Rate 25 H 25 H 18 Blood Pressure 104/57 L 107/59 L 114/67 Pulse Oximetry 98 97 95 07/14/18 04:00 07/14/18 08:00 Temperature 97.3 F L 97.4 F L Pulse Rate 75 73 Respiratory Rate 18 20 Blood Pressure 118/65 95/54 L Pulse Oximetry 95 95 Intake & Output 07/13/18 07/14/18 07/14/18 18:59 06:59 18:59 Intake Total 250 / 250 1030 / 1030 250 / 250 Output Total 255 / 255 Balance 250 / 250 775 / 775 250 / 250 Weight 56.9 kg Intake: IV 250 / 250 200 / 200 250 / 250 LR 1000 mL Inj 1,000 ML @ 30 200 / 200 mls/hr IV.SIG .Q24H [facility] Rx#: [id number] Vancomycin Inj 1,000 MG In NS 250 / 250 250 / 250 Inj 250 ML @ 250 mls/hr IV.SIG Q12H [facility] Rx#:[id number] Oral 230 / 230 Anesthesia Amount 600 / 600 Output: Urine 250 / 250 Estimated Blood Loss 5 / 5 Other: # Voids 2 # Bowel Movements 0 07/12/18 16:15 Clean Catch Urine Urine Culture - Final No growth in 48 hours 07/13/18 19:58 Wound - Foot Gram Stain - Final 07/13/18 19:58 Wound - Foot Wound Culture - Pending 07/13/18 19:58 Wound - Foot Acid Fast Bacilli Smear - Pending 07/13/18 19:58 Wound - Foot Mycobacterial Culture - Pending 07/13/18 19:58 Wound - Foot Fungal Smear - Pending 07/13/18 19:58 Wound - Foot Fungal Culture - Pending 07/12/18 16:15 Blood - Peripheral Aerobic Blood Culture - Preliminary gram positive cocci 07/12/18 16:15 Blood - Peripheral Anaerobic Blood Culture - Preliminary gram positive cocci 07/12/18 16:15 Blood - Peripheral Aerobic Blood Culture - Preliminary gram positive cocci 07/12/18 16:15 Blood - Peripheral Anaerobic Blood Culture - Preliminary gram positive cocci Lab - Hematology Results 07/12/18 07/12/18 16:15 16:15 WBC 7.8 RBC 4.42 Hgb 11.2 L Hct 34.0 L MCV 76.9 L MCH 25.3 L MCHC 32.9 RDW 16.6 Plt Count 121 L MPV 8.9 Neut % (Auto) 78.0 H Lymph % (Auto) 15.3 [place] % (Auto) 5.8 Eos % (Auto) 0.7 Baso % (Auto) 0.2 Neut # (Auto) 6.1 Lymph # (Auto) 1.2 [place] # (Auto) 0.5 Eos # (Auto) 0.1 Baso # (Auto) 0.0 WBC Differential . Differential Comment Auto diff final ESR 58 H Lab - Chemistry Results 07/12/18 07/12/18 07/12/18 16:15 16:15 16:15 Sodium 134 L Potassium 3.5 Chloride 100 Carbon Dioxide 28.5 Anion Gap 6 BUN 7 Creatinine 0.84 Estimated GFR 81 L Random Glucose 122 H Calcium 8.8 D Iron 48 L TIBC 319 % Saturation 15.0 L Ferritin 100 Total Bilirubin 0.4 Direct Bilirubin 0.1 Indirect Bilirubin 0.3 AST 20 ALT 18 Alkaline Phosphatase 148 H Total Protein 8.1 D Albumin 2.7 L Beta HCG, Qual Less than 1.0 07/14/18 06:13 Sodium Potassium Chloride Carbon Dioxide Anion Gap BUN Creatinine 0.55 Estimated GFR Greater than 89 Random Glucose Calcium Iron TIBC % Saturation Ferritin Total Bilirubin Direct Bilirubin Indirect Bilirubin AST ALT Alkaline Phosphatase Total Protein Albumin Beta HCG, Qual Imaging: ITS Impressions Abdomen Ultrasound 07/12/18 00:00 CONCLUSION: 1. No ascites. Abdomen/Bladder Ultrasound 07/12/18 00:00 CONCLUSION: 1. Splenomegaly. 2. Mild right renal pelviectasis. Foot CT 07/12/18 00:00 CONCLUSION: 1. Extensive soft tissue swelling of the foot especially on the dorsum and laterally most characteristic of cellulitis with suspected abscess around the fifth metatarsal head measuring up to 2 cm in diameter. No CT findings for osteomyelitis. Physical Exam: PHYSICAL EXAMINATION: GENERAL: No acute distress. She is awake, alert and oriented. She looks clinically ill. HEENT: The head is atraumatic. Extraocular movements grossly intact. Pupils reactive to light. No icterus. No conjunctival erythema. Oropharynx: Moist mucosa. No thrush. No lesions. NECK: Supple without adenopathy. HEART: A 1/6 systolic murmur at the left sternal border. ABDOMEN: Bowel sounds present. Soft, nontender. EXTREMITIES: The right foot has swelling. Post I and D. No petechial or embolic lesion visible. SKIN: The skin has no diffuse rash. NEUROLOGIC: Nonfocal. PSYCHIATRIC: The patient is calm and cooperative. Assessment and Plan - Plan IMPRESSION: 1. 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 2. Cellulitis and abscess of the right foot, probably secondary to seeding from endocarditis. RECOMMENDATIONS: 1. Continue vancomycin. 2. Monitor the blood cultures including sensitivity of the MRSA. 3. Monitor temperature. 4. Monitor wound culture. 5. Monitor clinical status. 6. Repeat blood cultures. 7. The patient will need IV antibiotic treatment for endocarditis.
[2018-07-14] MEDS: Ferrous Sulfate 325 MG Tablet PO SCH ×2 (10:56→21:18)
--- NOTE | 2018-07-14 12:41 | P.PN ---
Subjective Interval history: afebrile complains of right foot pain no diarrhea, nausea or vomiting feels sweating and like getting withdrawal from drug use Physical Exam Vital signs: Vital Signs 07/13/18 13:04 07/13/18 16:00 07/13/18 20:00 Temperature 102.7 F H 98.8 F 99.1 F Pulse Rate 94 H 99 H Respiratory Rate 20 18 Blood Pressure 110/71 110/56 L Pulse Oximetry 96 96 07/13/18 20:05 07/13/18 20:10 07/13/18 20:15 Temperature 99.3 F Pulse Rate 93 H 93 H 94 H Respiratory Rate 18 24 25 H Blood Pressure 90/52 L 100/58 L 104/57 L Pulse Oximetry 92 L 98 98 07/13/18 20:30 07/14/18 00:00 07/14/18 04:00 Temperature 99.0 F 97.8 F 97.3 F L Pulse Rate 96 H 73 75 Respiratory Rate 25 H 18 18 Blood Pressure 107/59 L 114/67 118/65 Pulse Oximetry 97 95 95 07/14/18 08:00 07/14/18 12:00 Temperature 97.4 F L 97.5 F L Pulse Rate 73 85 Respiratory Rate 20 20 Blood Pressure 95/54 L 115/61 Pulse Oximetry 95 93 L Intake & Output 07/13/18 07/14/18 07/14/18 18:59 06:59 18:59 Intake Total 250 / 250 1030 / 1030 250 / 250 Output Total 255 / 255 Balance 250 / 250 775 / 775 250 / 250 Weight 56.9 kg Intake: IV 250 / 250 200 / 200 250 / 250 LR 1000 mL Inj 1,000 ML @ 30 200 / 200 mls/hr IV.SIG .Q24H [facility] Rx#: [id number] Vancomycin Inj 1,000 MG In NS 250 / 250 250 / 250 Inj 250 ML @ 250 mls/hr IV.SIG Q12H [facility] Rx#:[id number] Oral 230 / 230 Anesthesia Amount 600 / 600 Output: Urine 250 / 250 Estimated Blood Loss 5 / 5 Other: # Voids 2 # Bowel Movements 0 Narrative: Awake alert oriented x3 not in any acute distress Anicteric sclerae Neck was supple no JVD no bruit no lymphadenopathy Chest lungs bilateral breath sounds decreased no rales no wheezes Regular rhythm tachycardic soft 3/6 systolic murmur left sternal border Abdomen- soft, slightly distended, good bowel sounds Extremities right foot -dressing in place Results - Labs CBC & Chem 7: 07/12/18 16:15 07/14/18 06:13 Laboratory Results - last 24 hr 07/14/18 06:13 Creatinine 0.55 Estimated GFR Greater than 89 Vancomycin Trough 3.9 L Microbiology 07/13/18 19:58 Wound - Foot Gram Stain - Final 07/13/18 19:58 Wound - Foot Wound Culture - Preliminary gram positive cocci 07/12/18 16:15 Blood - Peripheral Aerobic Blood Culture - Final S. aureus MRSA 07/12/18 16:15 Blood - Peripheral Anaerobic Blood Culture - Final S. aureus MRSA 07/12/18 16:15 Blood - Peripheral Aerobic Blood Culture - Final S. aureus MRSA 07/12/18 16:15 Blood - Peripheral Anaerobic Blood Culture - Final S. aureus MRSA 07/12/18 16:15 Clean Catch Urine Urine Culture - Final No growth in 48 hours - Procedures 07/13- right foot I and D Assessment and Plan - Plan 27-year-old female with MRSA sepsis secondary to right foot abscess Tricuspid valve endocarditis Right foot abscess S/P I and D 07/13 -ff repeat cultures to ensure clearance -Podiatry and ID ff -on Vancomycin Pyuria. -voiding no pain today - renal US unremarkable - Reviewed urine culture from July 11 no growth - history of hepatitis C cirrhosis - US- no ascites Anemia microcytic - low iron/feritin stores - Iron 325 mg bid IVDU= patient counselled extensively - start methadone 2.5 mg daily
[2018-07-14] MEDS: Methadone 10 MG Tablet PO SCH (13:32)
[2018-07-14] MEDS: Vancomycin Inj 1,250 MG in Sodium Chlor 0.9% Inj 250 ML IV.SIG SCH ×2 (14:38→21:19)
--- NOTE | 2018-07-14 18:12 | P.PNPOD ---
Subjective Interval history: s/p I&D Right foot abscess Physical Exam Vital signs: Vital Signs 07/13/18 20:00 07/13/18 20:05 07/13/18 20:10 Temperature 99.1 F 99.3 F Pulse Rate 99 H 93 H 93 H Respiratory Rate 18 18 24 Blood Pressure 110/56 L 90/52 L 100/58 L Pulse Oximetry 96 92 L 98 07/13/18 20:15 07/13/18 20:30 07/14/18 00:00 Temperature 99.0 F 97.8 F Pulse Rate 94 H 96 H 73 Respiratory Rate 25 H 25 H 18 Blood Pressure 104/57 L 107/59 L 114/67 Pulse Oximetry 98 97 95 07/14/18 04:00 07/14/18 08:00 07/14/18 12:00 Temperature 97.3 F L 97.4 F L 97.5 F L Pulse Rate 75 73 80 Respiratory Rate 18 20 20 Blood Pressure 118/65 95/54 L 115/61 Pulse Oximetry 95 95 93 L 07/14/18 16:00 07/14/18 16:01 Temperature 98.1 F Pulse Rate 81 80 Respiratory Rate 20 Blood Pressure 104/64 Pulse Oximetry 93 L Intake & Output 07/13/18 07/14/18 07/14/18 18:59 06:59 18:59 Intake Total 250 / 250 1030 / 1030 992.5 / 992.5 Output Total 255 / 255 600 / 600 Balance 250 / 250 775 / 775 392.5 / 392.5 Weight 56.9 kg Intake: IV 250 / 250 200 / 200 512.5 / 512.5 LR 1000 mL Inj 1,000 ML @ 30 200 / 200 mls/hr IV.SIG .Q24H [facility] Rx#: [id number] Vancomycin Inj 1,000 MG In NS 250 / 250 250 / 250 Inj 250 ML @ 250 mls/hr IV.SIG Q12H [facility] Rx#:[id number] Vancomycin Inj 1,250 MG In NS 262.5 / 262.5 Inj 250 ML @ 250 mls/hr IV.SIG Q8H [facility] Rx#:[id number] Oral 230 / 230 480 / 480 Anesthesia Amount 600 / 600 Output: Urine 250 / 250 600 / 600 Estimated Blood Loss 5 / 5 Other: # Voids 2 # Bowel Movements 0 Narrative: right foot dressing changed today. Clean, dry, intact. Reducing erythema Medications and Allergies Active Medications: Active Medications Acetaminophen (Tylenol) 650 mg PO Q4H PRN PRN Reason: temp > 100.4 Last Admin: 07/14/18 01:45 Dose: 650 mg Ferrous Sulfate (Ferosul) 325 mg PO BID [facility] Last Admin: 07/14/18 10:56 Dose: 325 mg Vancomycin HCl 1,250 mg/ (Sodium Chloride) 262.5 mls @ 250 mls/hr IV.SIG Q8H [facility] Last Infusion: 07/14/18 16:17 Dose: Infused Dextrose/Sodium Chloride (D5w/Normal Saline Inj) 1,000 mls @ 100 mls/hr IV.CONT .Q10H [facility] Last Admin: 07/14/18 09:48 Dose: 100 mls/hr Methadone HCl (Dolophine) 2.5 mg PO DAILY [facility] Last Admin: 07/14/18 13:32 Dose: 2.5 mg Miscellaneous (Pill Splitter) 1 each OTHER UNSCH [facility] Miscellaneous Information [place] 1 each OTHER UNSCH PRN PRN Reason: SEE LABEL COMMENTS Stop: 07/14/18 20:04 Miscellaneous Information [place] Ordered Lab Info) 0 each OTHER ONCE ONE Stop: 07/16/18 05:46 Pharmacy Profile Note (Vancomycin Consult Pharmacy) 1 each OTHER UNSCH PRN PRN Reason: Pharmacy to dose Sodium Chloride (Ns Flush) 2 ml IV.FLUSH BID [facility] Last Admin: 07/14/18 09:30 Dose: 2 ml Sodium Chloride (Ns Flush) 2 ml IV.FLUSH PRN PRN PRN Reason: FLUSH AFTER USING IV ACCESS Allergies Allergy/AdvReac Type Severity Reaction Status Date / Time No Known Allergies Allergy Verified 07/12/18 16:21 Home Medications Medication Instructions Recorded Confirmed Type No Known Home Medications 07/12/18 07/12/18 History Results - Labs CBC & Chem 7: 07/12/18 16:15 07/14/18 06:13 Laboratory Results - last 24 hr 07/14/18 06:13 Creatinine 0.55 Estimated GFR Greater than 89 Vancomycin Trough 3.9 L Microbiology 07/13/18 19:58 Wound - Foot Acid Fast Bacilli Smear - Final No acid fast bacilli seen 07/13/18 19:58 Wound - Foot Fungal Smear - Final No fungal elements seen 07/13/18 19:58 Wound - Foot Gram Stain - Final 07/13/18 19:58 Wound - Foot Wound Culture - Preliminary gram positive cocci 07/12/18 16:15 Blood - Peripheral Aerobic Blood Culture - Final S. aureus MRSA 07/12/18 16:15 Blood - Peripheral Anaerobic Blood Culture - Final S. aureus MRSA 07/12/18 16:15 Blood - Peripheral Aerobic Blood Culture - Final S. aureus MRSA 07/12/18 16:15 Blood - Peripheral Anaerobic Blood Culture - Final S. aureus MRSA 07/12/18 16:15 Clean Catch Urine Urine Culture - Final No growth in 48 hours - Procedures 07/13- right foot I and D Assessment and Plan - Assessment (1) Abscess of right foot Code(s): L02.611 - Cutaneous abscess of right foot Status: Acute Plan: Continue daily irrigation/packing right foot Continue IV antibiotics. No further surgical intervention planned at this time Weightbearing as tolerated right foot
[2018-07-15] MEDS: Vancomycin Inj 1,250 MG in Sodium Chlor 0.9% Inj 250 ML IV.SIG SCH ×3 (05:17→21:00)
[2018-07-15] MEDS: Dextrose 5%/NaCl 0.9% Inj 1,000 ML IV.CONT SCH ×4 (05:19→20:58)
[2018-07-15] MEDS: Ferrous Sulfate 325 MG Tablet PO SCH ×2 (09:04→20:57)
[2018-07-15] MEDS: Methadone 10 MG Tablet PO SCH (09:04)
[2018-07-15] MEDS: Acetaminophen 325 MG Tablet PO PRN ×2 (09:05→21:08)
[2018-07-15] MEDS: Sodium Chloride 0.9% 2 ML Flush BID IV.FLUSH SCH ×2 (10:22→20:57)
--- NOTE | 2018-07-15 12:27 | P.PN ---
Subjective Interval history: awake alert still spiking fever no pain complains though good po states has a good BM Physical Exam Vital signs: Vital Signs 07/14/18 16:00 07/14/18 16:01 07/14/18 20:00 Temperature 98.1 F 98.1 F Pulse Rate 81 80 81 Respiratory Rate 20 18 Blood Pressure 104/64 93/54 L Pulse Oximetry 93 L 95 07/14/18 23:54 07/15/18 00:00 07/15/18 04:00 Temperature 98 F 99 F Pulse Rate 76 72 92 H Respiratory Rate 18 18 Blood Pressure 112/61 115/60 Pulse Oximetry 95 95 07/15/18 08:00 07/15/18 09:07 07/15/18 09:50 Temperature 104.8 F H 102.7 F H 102.4 F H Pulse Rate 130 H Respiratory Rate 21 Blood Pressure 121/58 L Pulse Oximetry 91 L 07/15/18 10:23 Temperature 101 F H Pulse Rate Respiratory Rate Blood Pressure Pulse Oximetry Intake & Output 07/14/18 07/15/18 07/15/18 18:59 06:59 18:59 Intake Total 1472.5 / 1472.5 2765.0 / 2765.0 Output Total 600 / 600 200 / 200 Balance 872.5 / 872.5 2565.0 / 2565.0 Weight 58 kg Intake: IV 512.5 / 512.5 2525.0 / 2525.0 D5W/Normal Saline Inj 1,000 ML 2000 / 2000 @ 100 mls/hr IV.CONT .Q10H [facility] Rx#:[id number] Vancomycin Inj 1,000 MG In NS 250 / 250 Inj 250 ML @ 250 mls/hr IV.SIG Q12H [facility] Rx#:[id number] Vancomycin Inj 1,250 MG In NS 262.5 / 262.5 525.0 / 525.0 Inj 250 ML @ 250 mls/hr IV.SIG Q8H [facility] Rx#:[id number] Oral 960 / 960 240 / 240 Output: Urine 600 / 600 200 / 200 Urine/Stool Mix 0 / 0 Other: # Voids 3 1 Date of Last Bowel Movement 07/14/18 Narrative: Awake alert oriented x3 not in any acute distress Anicteric sclerae Neck was supple no JVD no bruit no lymphadenopathy Chest lungs bilateral breath sounds decreased no rales no wheezes Regular rhythm tachycardic soft 3/6 systolic murmur left sternal border Abdomen- soft, non tender good bowel sounds Extremities right foot -dressing in place Results - Labs CBC & Chem 7: 07/12/18 16:15 07/14/18 06:13 Microbiology 07/14/18 12:00 Blood - Peripheral Aerobic Blood Culture - Preliminary gram positive cocci 07/14/18 12:00 Blood - Peripheral Anaerobic Blood Culture - Preliminary No growth in 1 day 07/14/18 12:06 Blood - Peripheral Aerobic Blood Culture - Preliminary gram positive cocci 07/14/18 12:06 Blood - Peripheral Anaerobic Blood Culture - Preliminary No growth in 1 day 07/13/18 19:58 Wound - Foot Gram Stain - Final 07/13/18 19:58 Wound - Foot Wound Culture - Preliminary S. aureus MRSA 07/13/18 19:58 Wound - Foot Fungal Smear - Final No fungal elements seen 07/13/18 19:58 Wound - Foot Acid Fast Bacilli Smear - Final No acid fast bacilli seen 07/12/18 16:15 Blood - Peripheral Aerobic Blood Culture - Final S. aureus MRSA 07/12/18 16:15 Blood - Peripheral Anaerobic Blood Culture - Final S. aureus MRSA 07/12/18 16:15 Blood - Peripheral Aerobic Blood Culture - Final S. aureus MRSA 07/12/18 16:15 Blood - Peripheral Anaerobic Blood Culture - Final S. aureus MRSA 07/12/18 16:15 Clean Catch Urine Urine Culture - Final No growth in 48 hours - Procedures 07/13- right foot I and D Assessment and Plan - Plan 27-year-old female with MRSA sepsis secondary to right foot abscess Tricuspid valve endocarditis Right foot abscess S/P I and D 07/13 -will need ff repeat cultures to ensure clearance -Podiatry and ID ff -on Vancomycin Pyuria. -voiding no diffuclties - renal US unremarkable - Reviewed urine culture from July 11 no growth - history of hepatitis C cirrhosis - US- no ascites Anemia microcytic - low iron/feritin stores - Iron 325 mg bid IVDU= patient counselled extensively - start methadone 2.5 mg daily encourage up and ambulation
--- NOTE | 2018-07-15 18:58 | P.PNPOD ---
Physical Exam Vital signs: Vital Signs 07/14/18 20:00 07/14/18 23:54 07/15/18 00:00 Temperature 98.1 F 98 F Pulse Rate 81 76 72 Respiratory Rate 18 18 Blood Pressure 93/54 L 112/61 Pulse Oximetry 95 95 07/15/18 04:00 07/15/18 08:00 07/15/18 09:07 Temperature 99 F 104.8 F H 102.7 F H Pulse Rate 92 H 117 H Respiratory Rate 18 21 Blood Pressure 115/60 121/58 L Pulse Oximetry 95 91 L 07/15/18 09:50 07/15/18 10:23 07/15/18 12:00 Temperature 102.4 F H 101 F H 101.0 F H Pulse Rate 110 H Respiratory Rate 20 Blood Pressure 112/59 L Pulse Oximetry 90 L 07/15/18 13:19 07/15/18 16:00 07/15/18 18:00 Temperature 99.0 F 99.1 F Pulse Rate 107 H 90 Respiratory Rate 20 Blood Pressure 113/72 Pulse Oximetry 94 L Intake & Output 07/14/18 07/15/18 07/15/18 18:59 06:59 18:59 Intake Total 1472.5 / 1472.5 2765.0 / 2765.0 796.5 / 796.5 Output Total 600 / 600 200 / 200 Balance 872.5 / 872.5 2565.0 / 2565.0 796.5 / 796.5 Weight 58 kg Intake: IV 512.5 / 512.5 2525.0 / 2525.0 796.5 / 796.5 D5W/Normal Saline Inj 1,000 ML 1999 / 1999 534 / 534 @ 100 mls/hr IV.CONT .Q10H [facility] Rx#:[id number] Vancomycin Inj 1,000 MG In NS 250 / 250 Inj 250 ML @ 250 mls/hr IV.SIG Q12H [facility] Rx#:[id number] Vancomycin Inj 1,250 MG In NS 262.5 / 262.5 525.0 / 525.0 262.5 / 262.5 Inj 250 ML @ 250 mls/hr IV.SIG Q8H [facility] Rx#:[id number] Oral 960 / 960 240 / 240 Output: Urine 600 / 600 200 / 200 Urine/Stool Mix 0 / 0 Other: # Voids 3 1 4 Date of Last Bowel Movement 07/14/18 07/14/18 Medications and Allergies Active Medications: Active Medications Acetaminophen (Tylenol) 650 mg PO Q4H PRN PRN Reason: temp > 100.4 Last Admin: 07/15/18 09:05 Dose: 650 mg Ferrous Sulfate (Ferosul) 325 mg PO BID [facility] Last Admin: 07/15/18 09:04 Dose: 325 mg Vancomycin HCl 1,250 mg/ (Sodium Chloride) 262.5 mls @ 250 mls/hr IV.SIG Q8H [facility] Last Infusion: 07/15/18 14:15 Dose: Infused Dextrose/Sodium Chloride (D5w/Normal Saline Inj) 1,000 mls @ 100 mls/hr IV.CONT .Q10H [facility] Last Infusion: 07/15/18 16:44 Dose: 100 mls/hr Methadone HCl (Dolophine) 2.5 mg PO DAILY [facility] Last Admin: 07/15/18 09:04 Dose: 2.5 mg Miscellaneous (Pill Splitter) 1 each OTHER UNSCH [facility] Miscellaneous Information ([facility] Ordered Lab Info) 0 each OTHER ONCE ONE Stop: 07/16/18 05:46 Pharmacy Profile Note (Vancomycin Consult Pharmacy) 1 each OTHER UNSCH PRN PRN Reason: Pharmacy to dose Sodium Chloride (Ns Flush) 2 ml IV.FLUSH BID [facility] Last Admin: 07/15/18 10:22 Dose: Not Given Sodium Chloride (Ns Flush) 2 ml IV.FLUSH PRN PRN PRN Reason: FLUSH AFTER USING IV ACCESS Allergies Allergy/AdvReac Type Severity Reaction Status Date / Time No Known Allergies Allergy Verified 07/12/18 16:21 Home Medications Medication Instructions Recorded Confirmed Type No Known Home Medications 07/12/18 07/12/18 History Results - Labs CBC & Chem 7: 07/12/18 16:15 07/14/18 06:13 Microbiology 07/14/18 12:00 Blood - Peripheral Aerobic Blood Culture - Preliminary gram positive cocci 07/14/18 12:00 Blood - Peripheral Anaerobic Blood Culture - Preliminary No growth in 1 day 07/14/18 12:06 Blood - Peripheral Aerobic Blood Culture - Preliminary gram positive cocci 07/14/18 12:06 Blood - Peripheral Anaerobic Blood Culture - Preliminary No growth in 1 day 07/13/18 19:58 Wound - Foot Gram Stain - Final 07/13/18 19:58 Wound - Foot Wound Culture - Preliminary S. aureus MRSA 07/13/18 19:58 Wound - Foot Fungal Smear - Final No fungal elements seen 07/13/18 19:58 Wound - Foot Acid Fast Bacilli Smear - Final No acid fast bacilli seen - Procedures 07/13- right foot I and D Assessment and Plan - Assessment (1) Abscess of right foot Code(s): L02.611 - Cutaneous abscess of right foot Status: Acute Plan: Continue daily irrigation/packing right foot Continue IV antibiotics No further surgical intervention planned at this time Weightbearing as tolerated right foot in surgical shoe. Follow up 2 weeks for suture removal Clear for discharge from podiatry Podiatry signing off. Re-consult if new issues arise.
[2018-07-16] MEDS: Dextrose 5%/NaCl 0.9% Inj 1,000 ML IV.CONT SCH ×2 (05:29→12:07)
[2018-07-16] MEDS ORDERED: Pharmacy Ordered Lab Info OTHER ONE (05:45)
[2018-07-16] MEDS: Vancomycin Inj 1,250 MG in Sodium Chlor 0.9% Inj 250 ML IV.SIG SCH ×3 (06:11→21:38)
[2018-07-16 06:34] LABS: Glomerular Filtration Rate Greater Than 89 mL/min (>89)
[2018-07-16 06:35] LABS: Vancomycin,Trough 16.7 mcg/mL (5.0-10.0)
[2018-07-16] MEDS: Methadone 10 MG Tablet PO SCH (08:04)
[2018-07-16] MEDS: Ferrous Sulfate 325 MG Tablet PO SCH ×2 (08:05→20:07)
[2018-07-16] MEDS: Acetaminophen 325 MG Tablet PO PRN ×2 (08:05→20:07)
[2018-07-16] MEDS: Sodium Chloride 0.9% 2 ML Flush BID IV.FLUSH SCH ×2 (08:05→20:07)
--- NOTE | 2018-07-16 11:31 | P.PN ---
Subjective Interval history: spiked 101 but clinically looks better no diarrhea. minimal pain foot good po Physical Exam Vital signs: Vital Signs 07/15/18 12:00 07/15/18 13:19 07/15/18 16:00 Temperature 101.0 F H 99.0 F 99.1 F Pulse Rate 110 H 107 H Respiratory Rate 20 20 Blood Pressure 112/59 L 113/72 Pulse Oximetry 90 L 94 L 07/15/18 18:00 07/15/18 20:00 07/16/18 00:00 Temperature 99.4 F 99.0 F Pulse Rate 90 98 H 79 Respiratory Rate 18 18 Blood Pressure 112/60 116/55 L Pulse Oximetry 93 L 91 L 07/16/18 04:00 07/16/18 08:00 07/16/18 09:47 Temperature 99.4 F 101.7 F H 99.7 F H Pulse Rate 91 H 89 Respiratory Rate 18 20 Blood Pressure 123/60 113/63 Pulse Oximetry 96 91 L Intake & Output 07/15/18 07/16/18 07/16/18 18:59 06:59 18:59 Intake Total 796.5 / 796.5 3428.5 / 3428.5 262.5 / 262.5 Balance 796.5 / 796.5 3428.5 / 3428.5 262.5 / 262.5 Weight 58.5 kg Intake: IV 796.5 / 796.5 1728.5 / 1728.5 262.5 / 262.5 D5W/Normal Saline Inj 1,000 ML 534 / 534 1466 / 1466 @ 100 mls/hr IV.CONT .Q10H [facility] Rx#:[id number] Vancomycin Inj 1,250 MG In NS 262.5 / 262.5 262.5 / 262.5 262.5 / 262.5 Inj 250 ML @ 250 mls/hr IV.SIG Q8H [facility] Rx#:[id number] Oral 1700 / 1700 Other: # Voids 4 3 Date of Last Bowel Movement 07/14/18 07/15/18 07/15/18 Narrative: Awake alert oriented x3 not in any acute distress Anicteric sclerae Neck was supple no JVD no bruit no lymphadenopathy Chest lungs bilateral breath sounds decreased no rales no wheezes Regular rhythm tachycardic soft 3/6 systolic murmur left sternal border Abdomen- soft, non tender good bowel sounds Extremities right foot swelling and erythema much improved, good pulses small incision- drain in place Results - Labs CBC & Chem 7: 07/12/18 16:15 07/16/18 05:30 Laboratory Results - last 24 hr 07/16/18 05:30 Creatinine 0.56 Estimated GFR Greater than 89 Vancomycin Trough 16.7 H Microbiology 07/14/18 12:00 Blood - Peripheral Aerobic Blood Culture - Preliminary gram positive cocci 07/14/18 12:00 Blood - Peripheral Anaerobic Blood Culture - Preliminary No growth in 2 days 07/14/18 12:06 Blood - Peripheral Aerobic Blood Culture - Preliminary gram positive cocci 07/14/18 12:06 Blood - Peripheral Anaerobic Blood Culture - Preliminary No growth in 2 days 07/13/18 19:58 Wound - Foot Gram Stain - Final 07/13/18 19:58 Wound - Foot Wound Culture - Final S. aureus MRSA 07/13/18 19:58 Wound - Foot Fungal Smear - Final No fungal elements seen 07/13/18 19:58 Wound - Foot Acid Fast Bacilli Smear - Final No acid fast bacilli seen - Procedures 07/13- right foot I and D Assessment and Plan - Plan 27-year-old female with MRSA sepsis secondary to right foot abscess Tricuspid valve endocarditis Right foot abscess S/P I and D 07/13 - blood cultures 07/12, 07/14 persistently + -will repeat cultures to ensure clearance in next 48 hours 07/16 -Podiatry and ID ff -on Vancomycin Pyuria. -voiding- no difficulties - renal US unremarkable - Reviewed urine culture from July 11 no growth - history of hepatitis C cirrhosis - US- no ascites Anemia microcytic - low iron/feritin stores - Iron 325 mg bid IVDU= patient counselled extensively - started on methadone 2.5 mg daily encourage up and ambulation
[2018-07-17 04:19] LABS: Baso # (Auto) 0.1 th/mm3 (0.0-0.2); Baso % (Auto) 1.1 % (0.0-2.0); Eos % (Auto) 0.7 % (0.0-4.0); Hematocrit 30.5 % (35.0-46.0); Hemoglobin 9.9 gm/dL (11.6-15.3); Lymph # (Auto) 2.2 th/mm3 (1.0-4.8); Lymph % (Auto) 38.4 % (9.0-44.0); Mean Corpuscular HGB Conc 32.6 % (32.0-36.0); Mean Corpuscular Hemoglobin 25.2 pg (27.0-34.0); Mean Corpuscular Volume 77.2 fL (80.0-100.0); Mean Platelet Volume 7.7 fL (7.0-11.0); Mono # (Auto) 0.3 th/mm3 (0.0-0.9); Mono % (Auto) 5.3 % (0.0-8.0); Neut # (Auto) 3.1 th/mm3 (1.8-7.7); Neut % (Auto) 54.5 % (16.0-70.0); Platelet Count 215 th/mm3 (150-450); Red Blood Count 3.95 mil/mm3 (4.00-5.30); Red Cell Distribution Width 17.3 % (11.6-17.2); White Blood Count 5.6 th/mm3 (4.0-11.0)
[2018-07-17 04:47] LABS: Albumin 2.1 g/dL (3.4-5.0); Anion Gap 3 meq/L (5-15); Aspartate Aminotransferase 16 U/L (15-37); Blood Urea Nitrogen 5 mg/dL (7-18); Calcium 8.2 mg/dL (8.5-10.1); Carbon Dioxide 30.6 meq/L (21.0-32.0); Chloride 102 meq/L (98-107); Glomerular Filtration Rate Greater Than 89 mL/min (>89); Glucose,Random 88 mg/dL (74-106); Sodium 136 meq/L (136-145)
[2018-07-17 04:48] LABS: Alanine Aminotransferase 12 U/L (10-53)
[2018-07-17 04:50] LABS: Alkaline Phosphatase 77 U/L (45-117); Total Protein 6.9 g/dL (6.4-8.2)
[2018-07-17] MEDS: Vancomycin Inj 1,250 MG in Sodium Chlor 0.9% Inj 250 ML IV.SIG SCH ×3 (05:52→21:04)
[2018-07-17] MEDS: Methadone 10 MG Tablet PO SCH (08:51)
[2018-07-17] MEDS: Acetaminophen 325 MG Tablet PO PRN (08:51)
[2018-07-17] MEDS: Ferrous Sulfate 325 MG Tablet PO SCH ×2 (08:51→20:48)
[2018-07-17] MEDS: Sodium Chloride 0.9% 2 ML Flush BID IV.FLUSH SCH ×2 (08:52→20:48)
--- NOTE | 2018-07-17 12:01 | P.PN ---
Subjective Interval history: still with fever but clinically feels well no diarrhea good po minimal pain Physical Exam Vital signs: Vital Signs 07/16/18 12:00 07/16/18 16:00 07/16/18 19:00 Temperature 98.3 F 98.7 F Pulse Rate 85 87 76 Respiratory Rate 20 20 Blood Pressure 107/61 107/63 Pulse Oximetry 95 95 07/16/18 20:00 07/17/18 00:00 07/17/18 00:45 Temperature 101.3 F H 98.7 F Pulse Rate 97 H 75 70 Respiratory Rate 18 16 Blood Pressure 124/71 115/70 Pulse Oximetry 97 93 L 07/17/18 04:00 07/17/18 08:00 Temperature 98.4 F 100.9 F H Pulse Rate 65 93 H Respiratory Rate 20 17 Blood Pressure 121/77 130/74 Pulse Oximetry 92 L 91 L Intake & Output 07/16/18 07/17/18 07/17/18 18:59 06:59 18:59 Intake Total 1455.0 / 1455.0 862.5 / 862.5 262.5 / 262.5 Balance 1455.0 / 1455.0 862.5 / 862.5 262.5 / 262.5 Weight 6035 kg Intake: IV 975.0 / 975.0 262.5 / 262.5 262.5 / 262.5 D5W/Normal Saline Inj 1,000 ML 450 / 450 @ 100 mls/hr IV.CONT .Q10H [facility] Rx#:[id number] Vancomycin Inj 1,250 MG In NS 525.0 / 525.0 262.5 / 262.5 262.5 / 262.5 Inj 250 ML @ 250 mls/hr IV.SIG Q8H [facility] Rx#:[id number] Oral 480 / 480 600 / 600 Other: # Voids 3 4 Date of Last Bowel Movement 07/15/18 Narrative: Awake alert oriented x3 not in any acute distress Anicteric sclerae Neck was supple no JVD no bruit no lymphadenopathy Chest lungs bilateral breath sounds decreased no rales no wheezes Regular rhythm Abdomen- soft, good bowel sounds Extremities right foot decrease swelling, sutures in place Results - Labs CBC & Chem 7: 07/17/18 03:54 07/17/18 03:54 Laboratory Results - last 24 hr 07/17/18 07/17/18 03:54 03:54 WBC 5.6 RBC 3.95 L Hgb 9.9 L Hct 30.5 L MCV 77.2 L MCH 25.2 L MCHC 32.6 RDW 17.3 H Plt Count 215 D MPV 7.7 Neut % (Auto) 54.5 Lymph % (Auto) 38.4 [place] % (Auto) 5.3 Eos % (Auto) 0.7 Baso % (Auto) 1.1 Neut # (Auto) 3.1 Lymph # (Auto) 2.2 [place] # (Auto) 0.3 Eos # (Auto) 0.0 Baso # (Auto) 0.1 WBC Differential . Differential Comment Auto diff final Sodium 136 Potassium 4.0 Chloride 102 Carbon Dioxide 30.6 Anion Gap 3 L BUN 5 L Creatinine 0.57 Estimated GFR Greater than 89 Random Glucose 88 Calcium 8.2 L Total Bilirubin 0.2 AST 16 ALT 12 Alkaline Phosphatase 77 Total Protein 6.9 D Albumin 2.1 L Microbiology 07/14/18 12:00 Blood - Peripheral Aerobic Blood Culture - Final S. aureus MRSA 07/14/18 12:00 Blood - Peripheral Anaerobic Blood Culture - Final S. aureus MRSA 07/14/18 12:06 Blood - Peripheral Aerobic Blood Culture - Final S. aureus MRSA 07/14/18 12:06 Blood - Peripheral Anaerobic Blood Culture - Final S. aureus MRSA 07/13/18 19:58 Wound - Foot Gram Stain - Final 07/13/18 19:58 Wound - Foot Wound Culture - Final S. aureus MRSA - Procedures 07/13- right foot I and D Assessment and Plan - Plan 27-year-old female with MRSA sepsis secondary to right foot abscess Tricuspid valve endocarditis Right foot abscess S/P I and D 07/13 - blood cultures 07/12, 07/14 persistently + -will repeat cultures to ensure clearance in next 48 hours 07/16 -Podiatry and ID ff -on Vancomycin Pyuria. -voiding- no difficulties - renal US unremarkable - Reviewed urine culture from July 11 no growth - history of hepatitis C cirrhosis - US- no ascites Anemia microcytic - low iron/feritin stores - Iron 325 mg bid IVDU= patient counselled extensively - started on methadone 2.5 mg daily encourage up and ambulation
--- NOTE | 2018-07-17 13:33 | P.PNID ---
Subjective Remarks: Patient states she feels better. Reports that her shoulders and not as achy. Reports less pain in the right foot. Blood culture 07/12/2018 has MRSA. Blood culture from 07/11/2018 has MRSA. Blood culture repeated today. Afebrile. Admitted with tingling in her arm and also pain in her right foot where she had erythema and swelling. She is an IV drug user. Blood cultures are positive for MRSA. Echocardiogram showed tricuspid valve vegetation. Allergies/Adverse Reactions: Allergies No Known Allergies Allergy (Verified 07/12/18 16:21) Objective Vital Signs 07/16/18 16:00 07/16/18 19:00 07/16/18 20:00 Temperature 98.7 F 101.3 F H Pulse Rate 87 76 97 H Respiratory Rate 20 18 Blood Pressure 107/63 124/71 Pulse Oximetry 95 97 07/17/18 00:00 07/17/18 00:45 07/17/18 04:00 Temperature 98.7 F 98.4 F Pulse Rate 75 70 65 Respiratory Rate 16 20 Blood Pressure 115/70 121/77 Pulse Oximetry 93 L 92 L 07/17/18 08:00 07/17/18 12:00 Temperature 100.9 F H 98.0 F Pulse Rate 93 H 82 Respiratory Rate 17 15 Blood Pressure 130/74 104/61 Pulse Oximetry 91 L 94 L Intake & Output 07/16/18 07/17/18 07/17/18 18:59 06:59 18:59 Intake Total 1455.0 / 1455.0 862.5 / 862.5 262.5 / 262.5 Balance 1455.0 / 1455.0 862.5 / 862.5 262.5 / 262.5 Weight 6035 kg Intake: IV 975.0 / 975.0 262.5 / 262.5 262.5 / 262.5 D5W/Normal Saline Inj 1,000 ML 450 / 450 @ 100 mls/hr IV.CONT .Q10H [facility] Rx#:[id number] Vancomycin Inj 1,250 MG In NS 525.0 / 525.0 262.5 / 262.5 262.5 / 262.5 Inj 250 ML @ 250 mls/hr IV.SIG Q8H [facility] Rx#:[id number] Oral 480 / 480 600 / 600 Other: # Voids 3 4 Date of Last Bowel Movement 07/15/18 07/14/18 12:00 Blood - Peripheral Aerobic Blood Culture - Final S. aureus MRSA 07/14/18 12:00 Blood - Peripheral Anaerobic Blood Culture - Final S. aureus MRSA 07/14/18 12:06 Blood - Peripheral Aerobic Blood Culture - Final S. aureus MRSA 07/14/18 12:06 Blood - Peripheral Anaerobic Blood Culture - Final S. aureus MRSA 07/17/18 03:54 Blood - Peripheral Aerobic Blood Culture - Pending 07/17/18 03:54 Blood - Peripheral Anaerobic Blood Culture - Pending 07/17/18 03:59 Blood - Peripheral Aerobic Blood Culture - Pending 07/17/18 03:59 Blood - Peripheral Anaerobic Blood Culture - Pending 07/13/18 19:58 Wound - Foot Gram Stain - Final 07/13/18 19:58 Wound - Foot Wound Culture - Final S. aureus MRSA 07/13/18 19:58 Wound - Foot Fungal Smear - Final No fungal elements seen 07/13/18 19:58 Wound - Foot Fungal Culture - Pending 07/13/18 19:58 Wound - Foot Acid Fast Bacilli Smear - Final No acid fast bacilli seen 07/13/18 19:58 Wound - Foot Mycobacterial Culture - Pending 07/12/18 16:15 Blood - Peripheral Aerobic Blood Culture - Final S. aureus MRSA 07/12/18 16:15 Blood - Peripheral Anaerobic Blood Culture - Final S. aureus MRSA 07/12/18 16:15 Blood - Peripheral Aerobic Blood Culture - Final S. aureus MRSA 07/12/18 16:15 Blood - Peripheral Anaerobic Blood Culture - Final S. aureus MRSA 07/12/18 16:15 Clean Catch Urine Urine Culture - Final No growth in 48 hours Lab - Hematology Results 07/17/18 03:54 WBC 5.6 RBC 3.95 L Hgb 9.9 L Hct 30.5 L MCV 77.2 L MCH 25.2 L MCHC 32.6 RDW 17.3 H Plt Count 215 D MPV 7.7 Neut % (Auto) 54.5 Lymph % (Auto) 38.4 [place] % (Auto) 5.3 Eos % (Auto) 0.7 Baso % (Auto) 1.1 Neut # (Auto) 3.1 Lymph # (Auto) 2.2 [place] # (Auto) 0.3 Eos # (Auto) 0.0 Baso # (Auto) 0.1 WBC Differential . Differential Comment Auto diff final Lab - Chemistry Results 07/16/18 07/17/18 05:30 03:54 Sodium 136 Potassium 4.0 Chloride 102 Carbon Dioxide 30.6 Anion Gap 3 L BUN 5 L Creatinine 0.56 0.57 Estimated GFR Greater than 89 Greater than 89 Random Glucose 88 Calcium 8.2 L Total Bilirubin 0.2 AST 16 ALT 12 Alkaline Phosphatase 77 Total Protein 6.9 D Albumin 2.1 L Imaging: ITS Impressions Abdomen Ultrasound 07/12/18 00:00 CONCLUSION: 1. No ascites. Abdomen/Bladder Ultrasound 07/12/18 00:00 CONCLUSION: 1. Splenomegaly. 2. Mild right renal pelviectasis. Foot CT 07/12/18 00:00 CONCLUSION: 1. Extensive soft tissue swelling of the foot especially on the dorsum and laterally most characteristic of cellulitis with suspected abscess around the fifth metatarsal head measuring up to 2 cm in diameter. No CT findings for osteomyelitis. Physical Exam: PHYSICAL EXAMINATION: GENERAL: No acute distress. She is awake, alert and oriented. HEENT: The head is atraumatic. Extraocular movements grossly intact. Pupils reactive to light. No icterus. No conjunctival erythema. Oropharynx: Moist mucosa. No thrush. No lesions. NECK: Supple without adenopathy. HEART: A 1/6 systolic murmur at the left sternal border. ABDOMEN: Bowel sounds present. Soft, nontender. EXTREMITIES: The right foot has swelling. Post I and D. No petechial or embolic lesion visible. SKIN: The skin has no diffuse rash. NEUROLOGIC: Nonfocal. PSYCHIATRIC: Calm and cooperative. Assessment and Plan - Plan IMPRESSION: 1. 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 2. Cellulitis and abscess of the right foot due to MRSA. probably secondary to seeding from endocarditis. RECOMMENDATIONS: 1. Continue vancomycin. 2. Monitor the blood cultures including sensitivity of the MRSA. 3. Monitor temperature. 4. Monitor clinical status. 5. Follow repeat blood cultures. 6. The patient will need IV antibiotic treatment for 6 weeks from the day of negative blood culture for endocarditis.
[2018-07-18] MEDS: Vancomycin Inj 1,250 MG in Sodium Chlor 0.9% Inj 250 ML IV.SIG SCH ×2 (05:30→17:48)
[2018-07-18] MEDS ORDERED: Pharmacy Ordered Lab Info OTHER ONE (05:45)
[2018-07-18 07:09] LABS: Glomerular Filtration Rate Greater Than 89 mL/min (>89)
[2018-07-18] MEDS: Ferrous Sulfate 325 MG Tablet PO SCH ×2 (08:46→22:01)
[2018-07-18] MEDS: Sodium Chloride 0.9% 2 ML Flush BID IV.FLUSH SCH ×2 (08:46→22:01)
[2018-07-18] MEDS: Methadone 10 MG Tablet PO SCH (08:46)
--- NOTE | 2018-07-18 10:47 | P.PN ---
Subjective Interval history: feeling much better T down last 24 hours up and ambulating ask about her methadone dose- told her no- we will keep the same dose- patient agreed Physical Exam Vital signs: Vital Signs 07/17/18 12:00 07/17/18 16:00 07/17/18 20:00 Temperature 98.0 F 97.9 F 98.3 F Pulse Rate 82 66 95 H Respiratory Rate 15 15 16 Blood Pressure 104/61 124/82 116/73 Pulse Oximetry 94 L 95 96 07/18/18 00:00 07/18/18 04:00 07/18/18 08:00 Temperature 98.6 F 98.6 F 98.0 F Pulse Rate 83 74 71 Respiratory Rate 15 15 16 Blood Pressure 138/89 131/74 137/80 Pulse Oximetry 97 93 L 91 L Intake & Output 07/17/18 07/18/18 07/18/18 18:59 06:59 18:59 Intake Total 1485.0 / 1485.0 1125.0 / 1125.0 Output Total 3600 / 3600 1800 / 1800 Balance -2115.0 / -2115.0 -675.0 / -675.0 Weight 58.3 kg Intake: IV 525.0 / 525.0 525.0 / 525.0 Vancomycin Inj 1,250 MG In NS 525.0 / 525.0 525.0 / 525.0 Inj 250 ML @ 250 mls/hr IV.SIG Q8H [facility] Rx#:[id number] Oral 960 / 960 600 / 600 Output: Urine 3600 / 3600 1800 / 1800 Other: # Bowel Movements 0 Narrative: Awake alert oriented x3 not in any acute distress Anicteric sclerae Neck was supple no JVD no bruit no lymphadenopathy Chest lungs bilateral breath sounds decreased no rales no wheezes Regular rhythm Abdomen- soft, good bowel sounds Extremities right foot much improved- swelling almost resolved- area incision- with sutures intact- drain in place erythema much improved Results - Labs CBC & Chem 7: 07/17/18 03:54 07/18/18 04:15 Laboratory Results - last 24 hr 07/18/18 07/18/18 04:15 04:25 Creatinine 0.63 Estimated GFR Greater than 89 Vancomycin Trough 19.3 H Microbiology 07/17/18 03:54 Blood - Peripheral Aerobic Blood Culture - Preliminary gram positive cocci 07/14/18 12:00 Blood - Peripheral Aerobic Blood Culture - Final S. aureus MRSA 07/14/18 12:00 Blood - Peripheral Anaerobic Blood Culture - Final S. aureus MRSA 07/14/18 12:06 Blood - Peripheral Aerobic Blood Culture - Final S. aureus MRSA 07/14/18 12:06 Blood - Peripheral Anaerobic Blood Culture - Final S. aureus MRSA - Procedures 07/13- right foot I and D Assessment and Plan - Plan 27-year-old female with MRSA sepsis secondary to right foot abscess Right foot abscess S/P I and D 07/13 TV endocarditis - blood cultures 07/12, 07/14 , 07/17 -persistently + -will need repeat cultures to ensure clearance -Podiatry and ID ff -on Vancomycin Pyuria. -voiding- no difficulties - renal US unremarkable - Reviewed urine culture from July 11 no growth - history of hepatitis C cirrhosis - US- no ascites Anemia microcytic - low iron/feritin stores - Iron 325 mg bid IVDU= patient counselled extensively - started on methadone 2.5 mg daily - keep same dose encourage up and ambulation
--- NOTE | 2018-07-18 19:44 | MP ---
cc: Dorita Bang DPM DATE OF OPERATION: 07/13/2018 INDICATIONS: The patient presented with an abscess of the right foot. She was noted to have fluctuance over the fifth metatarsal head area and was found on further imaging to have fluid collection in that same area. I discussed with the patient the risks, benefits, potential complications of surgery. She agreed to move forward with incision and drainage of abscess, right foot. She was seen in preop holding by myself, nursing staff, and anesthesia, where the correct patient, side, and site were all confirmed to be correct and the right foot. She was then taken to the surgical suite in supine position. The right foot was prepped and draped in normal sterile fashion. Following timeout as per facility protocol, attention was directed to the dorsolateral aspect of the fifth metatarsal head area where there was noted to be fluctuance and a subcutaneous abscess was encountered with purulent drainage. A culture was taken of this drainage, followed by irrigation with 3 liters of normal saline and partial closure with nylon suture and packing with 1/4 inch iodoform gauze into the area followed by dry sterile dressing. She tolerated procedure and anesthesia well without complications and was taken back to PACU with vital signs stable and vascular status intact to the remainder of the right foot. She will be weightbearing as tolerated to right foot in surgical shoe. No further surgery is anticipated. She will need to have daily packing changes with nursing while inhouse and at home upon discharge. We will await cultures to guide which antibiotics will be discharged on and followup in 2 weeks to evaluate for suture removal. SHORT OPERATIVE NOTE SURGEON: Dorita Bang DPM [employer] SYSTEM[employer] PROGRAMMER: Staff. PREOPERATIVE DIAGNOSIS: Abscess, right foot. POSTOPERATIVE DIAGNOSIS: Abscess, right foot. PROCEDURE PERFORMED: Incision and drainage of abscess, right foot. PROPHYLAXIS: Already on IV antibiotics. PATHOLOGY: Culture, right foot. ESTIMATED BLOOD LOSS: 5 mL HEMOSTASIS: None. COMPLICATIONS: None. CONDITION: Stable to PACU. DISPOSITION: Weightbearing as tolerated, right foot in surgical shoe, no further surgery anticipated. Packing change daily and follow up in clinic in 2 weeks to evaluate for suture removal. Dorita Bang DPM /donna , 06:07 PM , 06:13 PM
[2018-07-19] MEDS: Vancomycin Inj 1,250 MG in Sodium Chlor 0.9% Inj 250 ML IV.SIG SCH (06:45)
[2018-07-19] MEDS: Ferrous Sulfate 325 MG Tablet PO SCH (08:47)
[2018-07-19] MEDS: Methadone 10 MG Tablet PO SCH (08:47)
[2018-07-19] MEDS: Sodium Chloride 0.9% 2 ML Flush BID IV.FLUSH SCH (08:49)
[2018-07-19 09:14] VITALS: RESP 19; O2SAT 96
[2018-07-19 13:40] VITALS: BP 118/67; TEMP 97.7
[2018-07-19] MEDS ORDERED: Vancomycin Inj 1,250 MG in Sodium Chlor 0.9% Inj 250 ML IV.SIG SCH (14:00)
--- NOTE | 2018-07-19 16:26 | P.PN ---
Subjective Interval history: Nursing denies any deterioration since last night. Patient reports relatively unchanged level of intensity of her chest pains which she has had for a while which she suspects is her endocarditis. Physical Exam Vital signs: Vital Signs 07/18/18 20:00 07/19/18 00:00 07/19/18 04:00 Temperature 97.7 F 98.3 F 98.3 F Pulse Rate 74 76 71 Respiratory Rate 18 18 18 Blood Pressure 106/75 103/75 138/92 H Pulse Oximetry 97 99 95 07/19/18 08:00 07/19/18 12:00 Temperature 98.4 F 97.7 F Pulse Rate 66 79 Respiratory Rate 19 19 Blood Pressure 109/73 118/67 Pulse Oximetry 96 96 Intake & Output 07/18/18 07/19/18 07/19/18 18:59 06:59 18:59 Intake Total 1222.5 / 1222.5 525.0 / 525.0 Output Total 3600 / 3600 1200 / 1200 Balance -2377.5 / -2377.5 -1200 / -1200 525.0 / 525.0 Weight 55.2 kg Intake: IV 262.5 / 262.5 525.0 / 525.0 Vancomycin Inj 1,250 MG In NS 262.5 / 262.5 525.0 / 525.0 Inj 250 ML @ 250 mls/hr IV.SIG Q8H [facility] Rx#:[id number] Oral 960 / 960 Output: Urine 3600 / 3600 1200 / 1200 Other: Date of Last Bowel Movement 07/15/18 # Bowel Movements 0 Narrative: Heart sounds regular rate and rhythm, no murmurs Clear lungs bilaterally, unlabored breathing Awake alert, no acute distress Right foot dorsal and lateral aspect sutures in place, appears dry clean and intact Results - Labs CBC & Chem 7: 07/17/18 03:54 07/18/18 04:15 Microbiology 07/17/18 03:54 Blood - Peripheral Aerobic Blood Culture - Preliminary S. aureus MRSA 07/17/18 03:54 Blood - Peripheral Anaerobic Blood Culture - Preliminary No growth in 2 days 07/17/18 03:59 Blood - Peripheral Aerobic Blood Culture - Preliminary No growth in 2 days 07/17/18 03:59 Blood - Peripheral Anaerobic Blood Culture - Preliminary No growth in 2 days - Procedures 07/13- right foot I and D Assessment and Plan - Plan 27-year-old female with MRSA sepsis secondary to right foot abscess Right foot abscess S/P I and D 07/13 TV endocarditis - blood cultures 07/12, 07/14 , 07/17 -persistently -Podiatry and ID ff -on Vancomycin Pyuria. -voiding- no difficulties - renal US unremarkable - Reviewed urine culture from July 11 no growth - history of hepatitis C cirrhosis - US- no ascites Anemia microcytic - low iron/feritin stores - Iron 325 mg bid IVDU= patient counselled extensively -methadone 2.5 mg daily - keep same dose encourage up and ambulation Discharge Planning: About 6 weeks of antibiotics IV will be needed.
[2018-07-19 16:49] VITALS: PULSE 84
--- NOTE | 2018-07-19 18:57 | P.AMA ---
AMA Note AMA Statement: Patient Mindee Columba Weaver has decided to leave the hospital against medical advice. This patient has the capacity to refuse care and understands the risks of leaving, including permanent disability and/or , and has had an opportunity to ask questions about his/her condition. The patient has been informed that he/she may return for care at any time, and follow up has been arranged/advised. Discharge Disposition: Against Medical Advice Patient Condition on Discharge: Fair
[2018-07-20] MEDS ORDERED: Pharmacy Ordered Lab Info OTHER ONE (05:45)
--- NOTE | 2018-07-22 09:28 | P.DS ---
Date of admission: 07/12/18 17:22 Primary care physician: No Primary Care Physician Brief History from admission: Patient is a 27-year-old female who admits to IV drug use heroin injected to the left AC area last use was this morning who came to the hospital because of fever and chills. Patient was admitted July 11 here for right foot infection. Review of records shows blood cultures to be positive for gram- positive cocci 4 out of 4 bottles on July 10. An echo was also done which showed positive tricuspid valve vegetation. ESR was 37. CRP 96. Patient left AMA. \ On further history patient was actually admitted to [facility] about 4 or 5 weeks ago because of sepsis which is secondary to a right foot infection. Patient states that she was discharged on Keflex plus Bactrim which she took for 10 days and this improved /resolved. About 3-4 days prior to admission redness of the foot recurred. Patient denies injecting any drugs to this foot. Associated with fever and chills came back to the ER on July 10. And as mentioned sign out AGAINST MEDICAL ADVICE. Patient also has history of hep C diagnosed in 2017. Patient states she was also tested for HIV then which was negative. She mentioned about some plan for treatment for Hep C but did not push through Patient has been amenorrheic for 4 months. Patient also complains of abdominal fullness. Denies any melena or hematochezia. Admitted for further evaluation and management DS: Summary Hospital Course: Patient was admitted again for IV antibiotic treatment of endocarditis. Also underwent treatment of right foot surgery I&D 07/13, Incision and drainage of abscess, right foot.. Left multiple times AMA in the past. Unfortunately left AMA again, did not want to stay for the appropriate duration of treatment. - Time Spent with Patient Total time spent providing and/or coordinating discharge services: Less than 30 minutes - Quality: VTE Deep Vein Thrombosis/Pulmonary Embolism Present on Admission: No Exam Narrative: Heart sounds regular rate and rhythm, no murmurs Clear lungs bilaterally, unlabored breathing Results Procedures completed during hospitalization: 07/13- right foot I and D Labs on day of discharge: Preliminary micro results at discharge 07/19/18 14:27 Aerobic Blood Culture - Preliminary Blood - Peripheral No growth in 2 days Anaerobic Blood Culture - Preliminary No growth in 2 days 07/19/18 14:32 Aerobic Blood Culture - Preliminary Blood - Peripheral No growth in 2 days Anaerobic Blood Culture - Preliminary No growth in 2 days 07/17/18 03:54 Anaerobic Blood Culture - Preliminary Blood - Peripheral No growth in 4 days 07/17/18 03:59 Aerobic Blood Culture - Preliminary Blood - Peripheral No growth in 4 days Anaerobic Blood Culture - Preliminary No growth in 4 days 07/13/18 19:58 Mycobacterial Culture - Preliminary Wound - Foot No growth in 1 week 07/13/18 19:58 Fungal Culture - Preliminary Wound - Foot No growth in 1 week - Impressions ITS Impressions Abdomen Ultrasound 07/12/18 00:00 CONCLUSION: 1. No ascites. Abdomen/Bladder Ultrasound 07/12/18 00:00 CONCLUSION: 1. Splenomegaly. 2. Mild right renal pelviectasis. Foot CT 07/12/18 00:00 CONCLUSION: 1. Extensive soft tissue swelling of the foot especially on the dorsum and laterally most characteristic of cellulitis with suspected abscess around the fifth metatarsal head measuring up to 2 cm in diameter. No [address] findings for osteomyelitis. Discharge Plan - Discharge Disposition Patient Disposition: 07 Against Medical Advice - Discharge Condition Condition: Fair - Physicians Team Primary Care Provider: Primary Care Lety Lozano Attending Provider: Nilton Bhardwaj Other Providers: Arvin Painter MD ; Ketan Keen DPM
== END 2018-07-19 16:54 | disposition left against medical advice (07) ==
LOC: NEPE 16:12 → NEDA 17:22 → N04 18:55
PROVIDERS: ADMIT Hospitalist; ATTEND Hospitalist

== ENCOUNTER 2018-07-21 01:10 | Inpatient (IN) ==
--- NOTE | 2018-07-21 01:55 | ED ---
HPI General Chief complaint: Chest Pain Stated complaint: foot pain Time Seen by Provider: 07/21/18 01:50 Source: patient Mode of arrival: ambulatory Limitations: no limitations History of Present Illness HPI narrative: 19-year-old female patient with IV drug use history, endocarditis recently admitted, presents to the ER today because she states that she had signed out AMA last week, and wants to come back and to get treatment. She has been having intermittent subjective fevers, chest discomfort , shortness of breath. She also states she has pain on her right fifth toe, which she states has been going on for some time, had surgery at and was I&d in that area. Related Data Home Medications Medication Instructions Recorded Confirmed No Known Home Medications 07/12/18 07/21/18 Allergies Allergy/AdvReac Type Severity Reaction Status Date / Time No Known Allergies Allergy Verified 07/21/18 01:39 Review of Systems ROS: all other systems reviewed are negative [facility] Medical History Medical History IV drug abuse (Acute) MDRO (multiple drug resistant organisms) resistance (Acute ~07/11/18) Patient denies medical problems (Acute) Surgical History Surgical History No history of previous surgery (Acute) Family History Family History Other Osteoarthritis Social History Social History Substance History: Active Abuse Second Hand Smoke Exposure: Yes Smoking Status: Current every day smoker Tobacco Type: Cigarettes How Often Do You Have a Drink Containing Alcohol: Never Recent Travel in [place] within the Last 8 Weeks: No Recent Out of Country Travel within the Last 8 Weeks: No Substance Abuse Detail Heroin: Substance Use Status: Active Route Used Substance Abuse: Intravenously Reason for Use: Get High Immunization History Tetanus Immunization: <5 Years Tetanus Immunization Year if Known: 2018 Exam Narrative Exam Narrative: GENERAL: Well-developed young female patient currently in mild distress. Awake and oriented x3. SKIN: Focused skin assessment warm/dry. The right foot fifth toe area shows no signs of erythema, nontender to palpation. HEAD: Atraumatic. Normocephalic. EYES: Pupils equal and round. No scleral icterus. No injection or drainage. ENT: No nasal bleeding or discharge. Mucous membranes pink and moist. NECK: Trachea midline. No JVD. CARDIOVASCULAR: Regular rate and rhythm. No murmur appreciated. RESPIRATORY: No accessory muscle use. Clear to auscultation. Breath sounds equal bilaterally. GASTROINTESTINAL: Abdomen soft, non-tender, nondistended. Hepatic and splenic margins not palpable. MUSCULOSKELETAL: No obvious deformities. No clubbing. No cyanosis. No edema. NEUROLOGICAL: Awake and alert. No obvious cranial nerve deficits. Motor grossly within normal limits. Normal speech. PSYCHIATRIC: Appropriate mood and affect; insight and judgment normal. Course Initial Documented Vital Signs Temperature 99.3 F 07/21/18 01:12 Pulse Rate 103 H 07/21/18 01:12 Respiratory Rate 16 07/21/18 01:12 Blood Pressure 135/79 07/21/18 01:12 Pulse Oximetry 98 07/21/18 01:12 Last Documented Vital Signs Temperature 99.3 F 07/21/18 01:12 Pulse Rate 91 H 07/21/18 01:39 Respiratory Rate 20 07/21/18 01:39 Blood Pressure 135/79 07/21/18 01:12 Pulse Oximetry 97 07/21/18 02:49 Medical Decision Making MDM Narrative Medical decision making narrative: IV vancomycin initiated after blood cultures done. Case is discussed with hospitalist service for admission. Patient apparently had just left AMA about 2 days ago. Medical Screen Exam Complete: Yes Emergency Medical Condition: Yes Differential Diagnosis Differential Diagnosis: Endocarditis versus sepsis versus pneumonia Lab Data Lab results reviewed: Yes I reviewed the patient's lab results. Result diagrams: 07/21/18 02:00 07/21/18 02:00 Lab Results 07/21/18 07/21/18 Range/Units 02:00 02:00 WBC 9.1 (4.0-11.0) th/mm3 RBC 4.35 (4.00-5.30) mil/mm3 Hgb 10.8 L (11.6-15.3) gm/dL Hct 33.5 L (35.0-46.0) % MCV 77.1 L (80.0-100.0) fL MCH 24.7 L (27.0-34.0) pg MCHC 32.1 (32.0-36.0) % RDW 17.1 (11.6-17.2) % Plt Count 310 D (150-450) th/mm3 MPV 7.3 (7.0-11.0) fL Neut % (Auto) 67.4 (16.0-70.0) % Lymph % (Auto) 26.7 (9.0-44.0) % [place] % (Auto) 4.6 (0.0-8.0) % Eos % (Auto) 0.9 (0.0-4.0) % Baso % (Auto) 0.4 (0.0-2.0) % Neut # (Auto) 6.2 (1.8-7.7) th/mm3 Lymph # (Auto) 2.4 (1.0-4.8) th/mm3 [place] # (Auto) 0.4 (0.0-0.9) th/mm3 Eos # (Auto) 0.1 (0.0-0.4) th/mm3 Baso # (Auto) 0.0 (0.0-0.2) th/mm3 WBC Differential . Differential Comment Auto diff final Sodium 137 (136-145) meq/L Potassium 4.0 (3.5-5.1) meq/L Chloride 99 (98-107) meq/L Carbon Dioxide 33.6 H (21.0-32.0) meq/L Anion Gap 4 L (5-15) meq/L BUN 11 (7-18) mg/dL Creatinine 0.70 (0.50-1.00) mg/dL Estimated GFR Greater than 89 (>89) mL/min Random Glucose 107 H (74-106) mg/dL Calcium 9.2 (8.5-10.1) mg/dL Magnesium 2.6 H (1.5-2.5) mg/dL Total Bilirubin 0.2 (0.2-1.0) mg/dL AST 14 L (15-37) U/L ALT 13 (10-53) U/L Alkaline Phosphatase 84 (45-117) U/L Total Protein 8.9 H D (6.4-8.2) g/dL Albumin 2.9 L (3.4-5.0) g/dL Imaging Data Attestation: I personally reviewed and interpreted this imaging study as follows : Radiologist's impression: Chest X-Ray 07/21/18 01:50 CONCLUSION: Persistent multifocal areas of patchy opacity throughout both lungs suggesting multifocal areas of infiltrate, similar to 07/11/2018. Discharge Plan Discharge Details Anticipated Discharge Date: 07/21/18 Physicians Team ED Provider: Ariel Miller Primary Care Provider: Primary Care Blake,Lety Rxs /Orders / Referrals /Forms Prescriptions: No Action No Known Home Medications RF: 0 Discharge Interventions Interventions: Vital Signs Last Done: 07/21/18 01:39 Status ED Status: With Doctor
[2018-07-21] MEDS ORDERED: Vancomycin Inj 1 GM/200 ML PIGGYBACK IV.SIG SCH (02:00)
[2018-07-21 02:21] LABS: Baso % (Auto) 0.4 % (0.0-2.0); Eos # (Auto) 0.1 th/mm3 (0.0-0.4); Eos % (Auto) 0.9 % (0.0-4.0); Hematocrit 33.5 % (35.0-46.0); Hemoglobin 10.8 gm/dL (11.6-15.3); Lymph # (Auto) 2.4 th/mm3 (1.0-4.8); Lymph % (Auto) 26.7 % (9.0-44.0); Mean Corpuscular HGB Conc 32.1 % (32.0-36.0); Mean Corpuscular Hemoglobin 24.7 pg (27.0-34.0); Mean Corpuscular Volume 77.1 fL (80.0-100.0); Mean Platelet Volume 7.3 fL (7.0-11.0); Mono # (Auto) 0.4 th/mm3 (0.0-0.9); Mono % (Auto) 4.6 % (0.0-8.0); Neut # (Auto) 6.2 th/mm3 (1.8-7.7); Neut % (Auto) 67.4 % (16.0-70.0); Platelet Count 310 th/mm3 (150-450); Red Blood Count 4.35 mil/mm3 (4.00-5.30); Red Cell Distribution Width 17.1 % (11.6-17.2); White Blood Count 9.1 th/mm3 (4.0-11.0)
--- NOTE | 2018-07-21 02:22 | XR ---
EXAM DATE: 07/21/2018 2:16 AM EDT AGE/SEX: 27 years / Female INDICATIONS: Fever. CLINICAL DATA: This is the patient's sequela encounter. Patient reports that signs and symptoms have been present for 1 week and indicates a pain score of 0/10. MEDICAL/SURGICAL HISTORY: . Hepatitis C. Cirrhosis. Sepsis. IVDU. Endocarditis. secti on. Right foot. COMPARISON: [facility], CHEST 1V SINGLE AP, 07/11/2018. . FINDINGS: There are patchy multifocal areas of opacity in both lungs very similar to prior examination 07/11/20 18 with multiple areas of opacity measuring less than 2 cm in size. The heart is normal in size. Both hemidiaphragms well delineated. CONCLUSION: Persistent multifocal areas of patchy opacity throughout both lungs suggesting multifocal areas of in filtrate, similar to 07/11/2018. Electronically signed by: Liu Davis MD 07/21/2018 2:21 AM EDT
[2018-07-21 02:34] LABS: Alanine Aminotransferase 13 U/L (10-53); Albumin 2.9 g/dL (3.4-5.0); Anion Gap 4 meq/L (5-15); Aspartate Aminotransferase 14 U/L (15-37); Blood Urea Nitrogen 11 mg/dL (7-18); Calcium 9.2 mg/dL (8.5-10.1); Carbon Dioxide 33.6 meq/L (21.0-32.0); Chloride 99 meq/L (98-107); Glomerular Filtration Rate Greater Than 89 mL/min (>89); Glucose,Random 107 mg/dL (74-106); Magnesium 2.6 mg/dL (1.5-2.5); Sodium 137 meq/L (136-145)
[2018-07-21 02:36] LABS: Alkaline Phosphatase 84 U/L (45-117); Total Protein 8.9 g/dL (6.4-8.2)
[2018-07-21] MEDS ORDERED: Vancomycin Consult Pharmacy OTHER PRN (03:12)
[2018-07-21] MEDS ORDERED: Bisacodyl 10 MG Supp RECTAL PRN (03:12)
[2018-07-21] MEDS ORDERED: Acetaminophen 325 MG Tablet PO PRN (03:12)
--- NOTE | 2018-07-21 03:56 | P.HPIM ---
History of Present Illness Primary Care Physician: No Primary Care Physician History of Present Illness: This is a 27-year-old female with a PMH of Endocarditis and IVDU who presented to the ER for readmission. Pt initially presented to ER on 07/11/18 for non- healing right foot infection which had been previously treated at [facility] [place] on 06/05/18 w/ antibiotics, admitted here at that time for Cellulitis and concern for Endocarditis, however pt LEFT AMA on 07/11/18. Returned on 07/12/18 , Blood Cultures +MRSA 07/11/18, 07/14/18 and 07/17/18. S/p I&D of Right foot abscess by Dr. Bang w/ wound cultures also +MRSA. 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 Returns now for re-admission. States she is "committed to staying this time". Denies fever or chills. On arrival, BP 135/ 79, HR 103, O2 sat 98% on RA, Temp 99.3. CBC essentially unremarkable. Chemistry unremarkable. CXR with persistent multifocal patchy opacities throughout both lungs suggestive of multifocal infiltrates, similar to imaging on 07/11/2018. S/p Blood Cultures and Vanc IV in ER. - Diagnosis (1) Endocarditis (2) Abscess of right foot (3) IVDU (intravenous drug user) Inpatient Certification: I certify that the inpatient services were ordered in accordance with Medicare regulations governing the order. This includes certification that hospital inpatient services are reasonable and necessary and in the case of services not specified as inpatient-only under 42 CFR 419.22(n), that they are appropriately provided as inpatient services in accordance to with the 2-midnight benchmark under 43 CFR 412.3(e) Estimated Total Length of Stay (Days): 2 Plans for Post Hospital Care: Not yet determined Review of Systems PAST FAMILY HISTORY: Reviewed. No h/o DM or CAD All other systems reviewed negative except as stated in HPI PMFSH - History History Provided By: Patient - Medical History Medical History: Medical History (Last Reviewed 07/21/18 @ 01:54 by Ariel Miller MD) IV drug abuse MDRO (multiple drug resistant organisms) resistance Onset Date: ~07/11/18 Patient denies medical problems - Surgical History Surgical History: Surgical History (Last Reviewed 07/21/18 @ 01:54 by Ariel Miller MD) No history of previous surgery - Family History Family History: Family History (Last Reviewed 07/21/18 @ 01:54 by Ariel Miller MD) Other Osteoarthritis - Tobacco History Second Hand Smoke Exposure: Yes Tobacco Use In Past 30 Days: Yes Smoking Status: Current every day smoker Tobacco Type: Cigarettes - Alcohol History How Often Do You Have a Drink Containing Alcohol: Never - Substance Use History Substance History: Active Abuse - Substance Use Type Heroin Status: Active Route Used: Intravenously Reason for Use: Get High - Travel History Recent Travel in the [place] Within the Last 8 Weeks: No Recent Travel Out of the Country Within the Last 8 Weeks: No - Immunization History Tetanus Immunization: <5 Years Tetanus Immunization Year if Known: 2017 Medications and Allergies Active Medications: Active Medications Acetaminophen (Tylenol) 650 mg PO Q4H PRN PRN Reason: Temp > 100.4 Al Hydroxide/Mg Hydroxide (Milk Of Magnesia Liq) 30 ml PO Q12H PRN PRN Reason: Mild Constipation Bisacodyl (Dulcolax Supp) 10 mg RECTAL DAILY PRN PRN Reason: SEVERE CONSITIPATION Sodium Chloride (Ns Inj) 1,000 mls @ 100 mls/hr IV.CONT .Q10H EVANGELIST Vancomycin HCl 1,250 mg/ (Sodium Chloride) 262.5 mls @ 250 mls/hr IV.SIG ONCE@ 0500 ONE Stop: 07/21/18 06:02 Lactulose (Lactulose Liq) 30 ml PO DAILY PRN PRN Reason: SEVERE CONSITIPATION Lorazepam (Ativan Inj) 1 mg IV.PUSH Q2H PRN PRN Reason: AGITATION/WITHDRAWAL Ondansetron HCl (Zofran Inj) 4 mg IV.PUSH Q6H PRN PRN Reason: NAUSEA OR VOMITING Pharmacy Profile Note (Vancomycin Consult Pharmacy) 1 each OTHER UNSCH PRN PRN Reason: Pharmacy to dose Senna/Docusate Sodium (Sravanthi-Colace) 1 tab PO BID [facility]ANGELIST Sennosides (Senokot) 17.2 mg PO Q12H PRN PRN Reason: Moderate Constipation Allergies Allergy/AdvReac Type Severity Reaction Status Date / Time No Known Allergies Allergy Verified 07/21/18 01:39 Home Medications Medication Instructions Recorded Confirmed Type No Known Home Medications 07/12/18 07/21/18 History Exam Vital signs: Vital Signs 07/21/18 01:12 07/21/18 01:39 07/21/18 02:49 Temperature 99.3 F Pulse Rate 103 H 91 H Respiratory Rate 16 20 Blood Pressure 135/79 Pulse Oximetry 98 98 97 Intake & Output 07/20/18 07/20/18 07/21/18 06:59 18:59 06:59 Weight 54.431 kg Narrative: PE: GENERAL: Young white female in no acute distress. Boyfriend at bedside. SKIN: Focused skin assessment warm and dry. Multiple tattoos. HEENT: PERRLA, EOMI. No scleral icterus or conjunctival pallor. No lid lag or facial droop. CARDIOVASCULAR: Regular rate and rhythm. No obvious murmurs to auscultation. No chest tenderness to palpation. RESPIRATORY: No obvious rhonchi or wheezing. Clear to auscultation. Breath sounds equal bilaterally. GASTROINTESTINAL: Abdomen soft, non-tender, nondistended. BS normal. MUSCULOSKELETAL: Extremities without clubbing, cyanosis, or edema. No obvious deformities. Right foot healing well, sutures in place. NEUROLOGICAL: Awake, alert and oriented x4. No focal neurologic deficits. Moving both upper and lower extremities spontaneously. PSYCHIATRIC: Appropriate mood and affect. Insight and judgment normal. Results - Labs CBC & Chem 7: 07/21/18 02:00 07/21/18 02:00 Labs: Short CBC 07/21/18 Range/Units 02:00 WBC 9.1 (4.0-11.0) th/mm3 Hgb 10.8 L (11.6-15.3) gm/dL Hct 33.5 L (35.0-46.0) % Plt Count 310 D (150-450) th/mm3 BMP 07/21/18 02:00 Sodium 137 Potassium 4.0 Chloride 99 Carbon Dioxide 33.6 H BUN 11 Creatinine 0.70 Calcium 9.2 Liver Function 07/21/18 Range/Units 02:00 Total Bilirubin 0.2 (0.2-1.0) mg/dL AST 14 L (15-37) U/L ALT 13 (10-53) U/L Alkaline Phosphatase 84 (45-117) U/L Albumin 2.9 L (3.4-5.0) g/dL - Imaging Impressions Chest X-Ray 07/21/18 01:50 CONCLUSION: Persistent multifocal areas of patchy opacity throughout both lungs suggesting multifocal areas of infiltrate, similar to 07/11/2018. Caprini VTE Risk Assessment Caprini VTE Risk Assessment: No/Low Risk (score <= 1) Caprini Risk Assessment Model: Point Value = 1 Point Value = 2 Point Value = 3 Point Value = 5 Age 41-60 Minor surgery BMI > 25 kg/m2 Swollen legs Varicose veins or History of unexplained or recurrent spontaneous Oral contraceptives or hormone replacement Sepsis (< 1 month) Serious lung disease, including pneumonia (< 1 month) Abnormal pulmonary function Acute myocardial infarction Congestive heart failure (< 1 month) History of inflammatory bowel disease Medical patient at bed rest Age 61-74 Arthroscopic surgery Major open surgery (> 45 min) Laparoscopic surgery (> 45 min) Malignancy Confined to bed (> 72 hours) Immobilizing plaster cast Central venous access Age >= 75 History of VTE Family history of VTE Factor V Leiden Prothrombin [id number] Lupus anticoagulant Anticardiolipin antibodies Elevated serum homocysteine Heparin-induced thrombocytopenia Other congenital or acquired thrombophilia Stroke (< 1 month) Elective arthroplasty Hip, pelvis, or leg fracture Acute spinal cord injury (< 1 month) Prophylaxis Regimen: Total Risk Factor Score Risk Level Prophylaxis Regimen 0-1 Low Early ambulation 2 Moderate Order ONE of the following: *Sequential Compression Device (SCD) *Heparin 5000 units SQ BID 3-4 Higher Order ONE of the following medications: *Heparin 5000 units SQ TID *Enoxaparin/Lovenox 40 mg SQ daily (WT < 150 kg, CrCl > 30 mL/min) *Enoxaparin/Lovenox 30 mg SQ daily (WT < 150 kg, CrCl > 10-29 mL/min) *Enoxaparin/Lovenox 30 mg SQ BID (WT < 150 kg, CrCl > 30 mL/min) AND/OR *Sequential Compression Device (SCD) 5 or more Highest Order ONE of the following medications: *Heparin 5000 units SQ TID (Preferred with Epidurals) *Enoxaparin/Lovenox 40 mg SQ daily (WT < 150 kg, CrCl > 30 mL/min) *Enoxaparin/Lovenox 30 mg SQ daily (WT < 150 kg, CrCl > 10-29 mL/min) *Enoxaparin/Lovenox 30 mg SQ BID (WT < 150 kg, CrCl > 30 mL/min) AND *Sequential Compression Device (SCD) Assessment and Plan - Assessment (1) Endocarditis Code(s): I38 - Endocarditis, valve unspecified Status: Acute (2) Abscess of right foot Code(s): L02.611 - Cutaneous abscess of right foot Status: Acute (3) IVDU (intravenous drug user) Code(s): F19.90 - Other psychoactive substance use, unspecified, uncomplicated Status: Acute - Plan A/P: 1. 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 Follow up repeat blood cultures, continue IV Vanc, consult ID for further eval/recommendations as needed. 2. Right Foot Abscess: S/p I&D by Dr. Bang on 07/13/18, healing well, no erythema/edema, wound cultures +MRSA 07/13/18, continue IV Vanc as above. 3. IVDU: Pt counselled, states willing to stay and interested in detox. Ativan prn for withdrawal. 4. DVT Prophylaxis: SCD/Teds 5. Social work for d/c planning as needed. 6. Case discussed w/ ER physician at length, labs/records/imaging reviewed by me
[2018-07-21] MEDS ORDERED: Vancomycin Inj 1,000 MG in Sodium Chlor 0.9% Inj 250 ML IV.SIG SCH (04:00)
[2018-07-21] MEDS ORDERED: Vancomycin Inj 1,250 MG in Sodium Chlor 0.9% Inj 250 ML IV.SIG ONE (05:00)
[2018-07-21] MEDS: Sod Chloride 0.9% Inj 1,000 ML IV.CONT SCH ×2 (06:32→17:17)
[2018-07-21] MEDS ORDERED: Senna/Docusate Sodium 8.6/50 MG Tablet PO SCH (09:00)
[2018-07-21] MEDS ORDERED: Vancomycin Inj 1,250 MG in Sodium Chlor 0.9% Inj 250 ML IV.SIG SCH (16:00)
[2018-07-21 19:43] VITALS: BP 105/62; PULSE 90; RESP 14; TEMP 99.6; O2SAT 96
--- NOTE | 2018-07-21 20:02 | P.AMA ---
AMA Note - Diagnosis (1) Endocarditis (2) Abscess of right foot (3) IVDU (intravenous drug user) AMA Statement: Patient Aliyahee Columba Weaver has decided to leave the hospital against medical advice. This patient has the capacity to refuse care and understands the risks of leaving, including permanent disability and/or , and has had an opportunity to ask questions about his/her condition. The patient has been informed that he/she may return for care at any time, and follow up has been arranged/advised. Discharge Disposition: Against Medical Advice Patient Condition on Discharge: Fair
[2018-07-22] MEDS ORDERED: Pharmacy Ordered Lab Info OTHER ONE (15:45)
--- NOTE | 2018-07-24 14:46 | ECG ---
Date Performed: 07/21/2018 Time Performed: 02:02:42 PTAGE: 27 years EKG: Sinus rhythm MINIMAL VOLTAGE CRITERIA FOR LVH, CONSIDER NORMAL VARIANT NONSPECIFIC T-WAVE ABNORMALITY BORDERLINE ECG NO PREVIOUS TRACING DOCTOR: Primo Vela Interpretating Date/Time 07/24/2018 14:43:29
== END 2018-07-21 20:00 | disposition left against medical advice (07) ==
LOC: NEPC 01:10 → NEDA 03:06 → NEPFCDU 04:11
PROVIDERS: ADMIT Hospitalist; ATTEND Hospitalist

== ENCOUNTER 2018-08-02 00:24 | Inpatient (IN) ==
[2018-08-02] MEDS ORDERED: Vancomycin Inj 1,000 MG in Sodium Chlor 0.9% Inj 250 ML IV.SIG ONE (00:42)
[2018-08-02] MEDS ORDERED: Sod Chloride 0.9% Inj 1,000 ML IV.SIG ONE ×2 (00:48→00:54)
--- NOTE | 2018-08-02 01:06 | XR ---
EXAM DATE: 08/02/2018 1:02 AM EST AGE/SEX: 27 years / Female INDICATIONS: Chest pain. Short of breath. CLINICAL DATA: This is the patient's initial encounter. Patient reports that signs and symptoms have been present for 1 day and indicates a pain score of 3/10. MEDICAL/SURGICAL HISTORY: . Hepatitis C. Cirrhosis. Sepsis. IVDU. Endocarditis. . sec tion. Right foot. COMPARISON: [facility], CHEST 1V SINGLE AP, 07/21/2018. . FINDINGS: Multiple areas of nodular density present in the lungs bilaterally appears slightly improved from gary or. No evidence of significant effusion. Cardiac contours are satisfactory. CONCLUSION: Widespread presumed septic emboli slightly improved Electronically signed by: Mohit Leung MD 08/02/2018 1:05 AM EST
--- NOTE | 2018-08-02 01:08 | ED ---
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 She has had admissions before given vancomycin after few days patient leaves AMA. However the patient states this time that she will not, and she will follow all instructions. She is here at the bedside with a significant other who is encouraging her to seek care and to abide by proper care. PATIENT STATES SHE has not used any drugs since she has been with her sig other. complaint: Reports chest pain STEMI Alert: No Duration: constant Onset: during rest Pain location: Reports substernal Severity: moderate Severity scale (1-10): 6 Quality: Reports sharp Pain radiation: Reports none Relieving factors: nothing Exacerbating factors: nothing Associated symptoms: Reports palpitations and fever Treatments prior to arrival chest pain: Reports none Related Data Home Medications Medication Instructions Recorded Confirmed No Known Home Medications 08/02/18 08/02/18 Allergies Allergy/AdvReac Type Severity Reaction Status Date / Time No Known Allergies Allergy Verified 08/02/18 00:48 Review of Systems ROS: all other systems reviewed are negative [facility] Medical History Medical History Endocarditis (Acute) IV drug abuse (Acute) MDRO (multiple drug resistant organisms) resistance (Acute ~07/11/18) Patient denies medical problems (Acute) Surgical History Surgical History No history of previous surgery (Acute) Family History Family History Other Osteoarthritis Social History Social History Substance History: Past History Second Hand Smoke Exposure: Yes Smoking Status: Current every day smoker Tobacco Type: Cigarettes How Often Do You Have a Drink Containing Alcohol: Monthly or less Recent Travel in [facility] within the Last 8 Weeks: No Recent Out of Country Travel within the Last 8 Weeks: No Immunization History Tetanus Immunization: Unsure Tetanus Immunization Year if Known: 2018 Exam Narrative Exam Narrative: GENERAL: Thin female in mild distress states her chest is pounding SKIN: Warm and dry. HEAD: Atraumatic. Normocephalic. EYES: Pupils equal and round. No scleral icterus. No injection or drainage. ENT: No nasal bleeding or discharge. Mucous membranes pink and moist. NECK: Trachea midline. No JVD. CARDIOVASCULAR: Tachycardic rate and regular rhythm..mild murmur appreciated RESPIRATORY: No accessory muscle use. Clear to auscultation. Breath sounds equal bilaterally. GASTROINTESTINAL: Abdomen soft, non-tender, nondistended. No rebound or guarding MUSCULOSKELETAL: Extremities without clubbing, cyanosis, or edema. No obvious deformities. NEUROLOGICAL: Awake and alert. No obvious cranial nerve deficits. Motor grossly within normal limits. Five out of 5 muscle strength in the arms and legs. Normal speech. PSYCHIATRIC: Appropriate mood and affect; insight and judgment normal. Course Initial Documented Vital Signs Temperature 100.4 F H 08/02/18 00:28 Pulse Rate 160 H 08/02/18 00:28 Respiratory Rate 18 08/02/18 00:28 Blood Pressure 121/60 08/02/18 00:28 Pulse Oximetry 100 08/02/18 00:28 Last Documented Vital Signs Temperature 100.4 F H 08/02/18 00:28 Pulse Rate 145 H 08/02/18 00:51 Respiratory Rate 16 08/02/18 00:45 Blood Pressure 120/70 08/02/18 00:45 Pulse Oximetry 100 08/02/18 00:51 Medical Decision Making [facility] Narrative Medical Screen Exam Complete: Yes Emergency Medical Condition: Yes Medical Records Medical records reviewed: Yes I reviewed the patient's medical records. ECG Data EKG Prior to Arrival: No Attestation: I personally reviewed and interpreted this ECG as follows: Prior ECG tracings: not available for review Interpretation: Sinus tachycardia, 144 bpm, ST depressions on inferior to 3 aVF , as well as lateral V4 V5 V6 Discharge Plan Discharge Disposition Patient Disposition: 30 Still Patient Discharge Condition Condition: Fair Physicians Team ED Provider: Gene Savage Rxs /Orders / Referrals /Forms Prescriptions: No Action No Known Home Medications RF: 0 Discharge Instructions Patient Printed Instructions: Chest Pain (ED) Discharge Interventions Interventions: Vital Signs Last Done: 08/02/18 00:45 Status ED Status: With Doctor
[2018-08-02 01:14] LABS: Baso % (Auto) 0.5 % (0.0-2.0); Eos % (Auto) 0.5 % (0.0-4.0); Hematocrit 35.9 % (35.0-46.0); Hemoglobin 11.9 gm/dL (11.6-15.3); Lymph # (Auto) 1.2 th/mm3 (1.0-4.8); Lymph % (Auto) 13.8 % (9.0-44.0); Mean Corpuscular HGB Conc 33.1 % (32.0-36.0); Mean Corpuscular Hemoglobin 25.3 pg (27.0-34.0); Mean Corpuscular Volume 76.4 fL (80.0-100.0); Mean Platelet Volume 7.4 fL (7.0-11.0); Mono # (Auto) 0.2 th/mm3 (0.0-0.9); Mono % (Auto) 2.7 % (0.0-8.0); Neut # (Auto) 6.9 th/mm3 (1.8-7.7); Neut % (Auto) 82.5 % (16.0-70.0); Platelet Count 253 th/mm3 (150-450); Red Cell Distribution Width 17.3 % (11.6-17.2); White Blood Count 8.4 th/mm3 (4.0-11.0)
[2018-08-02 01:27] LABS: Alanine Aminotransferase 13 U/L (10-53); Albumin 3.1 g/dL (3.4-5.0); Anion Gap 7 meq/L (5-15); Aspartate Aminotransferase 13 U/L (15-37); Blood Urea Nitrogen 10 mg/dL (7-18); Calcium 8.8 mg/dL (8.5-10.1); Carbon Dioxide 28.7 meq/L (21.0-32.0); Chloride 104 meq/L (98-107); Glomerular Filtration Rate 81 mL/min (>89); Glucose,Random 106 mg/dL (74-106); Potassium 3.6 meq/L (3.5-5.1); Sodium 140 meq/L (136-145)
[2018-08-02 01:31] LABS: Alkaline Phosphatase 106 U/L (45-117); Total Protein 9.3 g/dL (6.4-8.2)
[2018-08-02 01:39] LABS: Creatine Kinase 25 U/L (26-192)
--- NOTE | 2018-08-02 02:24 | CT ---
EXAM DATE: 08/02/2018 2:10 AM EST AGE/SEX: 27 years / Female INDICATIONS: Chest pain. CLINICAL DATA: This is the patient's initial encounter. Patient reports that signs and symptoms have been present for 1 day and indicates a pain score of 7/10. MEDICAL/SURGICAL HISTORY: Cardiovascular disease. IV drug user None. RADIATION DOSE: 8.20 CTDI (mGy) COMPARISON: No prior exams available for comparison. TECHNIQUE: Volumetric scanning was performed using a multi-row detector CT scanner during bolus infu dylan of 70 ml Omnipaque 350 (iohexol) nonionic water-soluble contrast as a single exam dose. The chris a was post processed with a variety of visualization algorithms including full volume maximum intensi ty projection and sliding thin slab reformation. Using automated exposure control and adjustment of the mA and/or kV according to patient size, radiation dose was kept as low as reasonably achievable t o obtain optimal diagnostic quality images. DICOM format image data is available electronically for review and comparison. FINDINGS: Pulmonary Arteries: No filling defects are seen in the pulmonary arteries out to the subsegmental ve ssels. The left and right pulmonary arteries are normal in diameter. Lung: Multiple bilateral cavitary lung nodules consistent with septic emboli. Effusion: None. Mediastinum: Mild prominence of bilateral hilar alexx tissue. Other: Mild prominence of bilateral axillary lymph nodes. Hepatosplenomegaly in the upper abdomen CONCLUSION: This study is negative for pulmonary embolism. Electronically signed by: Mohit Leung MD 08/02/2018 2:23 AM EST
[2018-08-02] MEDS ORDERED: Vancomycin Consult Pharmacy OTHER PRN (02:55)
[2018-08-02] MEDS ORDERED: Bisacodyl 10 MG Supp RECTAL PRN (02:55)
[2018-08-02] MEDS ORDERED: Sodium Chloride 0.9% 2 ML Flush PRN IV.FLUSH (03:04)
[2018-08-02] MEDS: Sod Chloride 0.9% Inj 1,000 ML IV.CONT SCH ×2 (03:11→13:13)
[2018-08-02 03:39] LABS: Amphetamine Screen,Urine Neg (Neg); Barbiturate Screen,Urine Neg (Neg); Cannabinoid Screen,Urine Neg (Neg); Cocaine Screen,Urine Neg (Neg); Opiate Screen,Urine Pos (Neg)
--- NOTE | 2018-08-02 03:43 | P.HPIM ---
History of Present Illness Primary Care Physician: No Primary Care Physician History of Present Illness: 27-year-old female with a 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 She says she is continued to have fevers, chills, fatigue. Says she is committed now to getting treated. She says she wants to get well. Most recent IV heroin use was yesterday. Inpatient Certification: I certify that the inpatient services were ordered in accordance with Medicare regulations governing the order. This includes certification that hospital inpatient services are reasonable and necessary and in the case of services not specified as inpatient-only under 42 CFR 419.22(n), that they are appropriately provided as inpatient services in accordance to with the 2-midnight benchmark under 43 CFR 412.3(e) Estimated Total Length of Stay (Days): 2 Plans for Post Hospital Care: Not yet determined Review of Systems All other systems reviewed negative except as stated in HPI PMFSH - History History Provided By: Patient - Medical History Medical History: Medical History (Last Reviewed 08/02/18 @ 03:35 by Tavares Quintero MD) Endocarditis IV drug abuse MDRO (multiple drug resistant organisms) resistance Onset Date: ~07/11/18 Patient denies medical problems - Surgical History Surgical History: Surgical History (Last Reviewed 08/02/18 @ 03:35 by Tavares Quintero MD) No history of previous surgery - Family History Family History: Family History (Last Reviewed 08/02/18 @ 03:35 by Tavares Quintero MD) Other Osteoarthritis - Social History I have reviewed the patient's Social History: Yes - Tobacco History Second Hand Smoke Exposure: Yes Tobacco Use In Past 30 Days: Yes Smoking Status: Current every day smoker Tobacco Type: Cigarettes - Alcohol History How Often Do You Have a Drink Containing Alcohol: Monthly or less - Substance Use History Substance History: Past History - Travel History Recent Travel in the [place] Within the Last 8 Weeks: No Recent Travel Out of the Country Within the Last 8 Weeks: No - Immunization History Tetanus Immunization: Unsure Tetanus Immunization Year if Known: 2018 Medications and Allergies Active Medications: Active Medications Al Hydroxide/Mg Hydroxide (Milk Of Magnesia Liq) 30 ml PO Q12H PRN PRN Reason: Mild Constipation Bisacodyl (Dulcolax Supp) 10 mg RECTAL DAILY PRN PRN Reason: SEVERE CONSITIPATION Sodium Chloride (Ns Inj) 1,000 mls @ 100 mls/hr IV.CONT .Q10H [facility] Last Admin: 08/02/18 03:11 Dose: 100 mls/hr Lactulose (Lactulose Liq) 30 ml PO DAILY PRN PRN Reason: SEVERE CONSITIPATION Pharmacy Profile Note (Vancomycin Consult Pharmacy) 1 each OTHER UNSCH PRN PRN Reason: Pharmacy to dose Sennosides (Senokot) 17.2 mg PO Q12H PRN PRN Reason: Moderate Constipation Sodium Chloride (Ns Flush) 2 ml IV.FLUSH BID [facility] Sodium Chloride (Ns Flush) 2 ml IV.FLUSH PRN PRN PRN Reason: FLUSH AFTER USING IV ACCESS Allergies Allergy/AdvReac Type Severity Reaction Status Date / Time No Known Allergies Allergy Verified 08/02/18 00:48 Home Medications Medication Instructions Recorded Confirmed Type No Known Home Medications 08/02/18 08/02/18 History Exam Vital signs: Vital Signs 08/02/18 00:28 08/02/18 00:45 08/02/18 00:51 Temperature 100.4 F H Pulse Rate 160 H 145 H 145 H Respiratory Rate 18 16 Blood Pressure 121/60 120/70 Pulse Oximetry 100 100 100 Intake & Output 08/01/18 08/01/18 08/02/18 06:59 18:59 06:59 Intake Total 2250 / 2250 Balance 2250 / 2250 Weight 54.431 kg Intake: IV 2250 / 2250 NS Inj 1,000 ML @ Wide Open IV. 1999 SIG BOLUS ONE Rx#:[id number] Vancomycin Inj 1,000 MG In NS 250 / 250 Inj 250 ML @ 250 mls/hr IV.SIG ONCE ONE Rx#:[id number] Narrative: GENERAL: Patient sitting up in bed. Appears comfortable. Alert and oriented x3. SKIN: Warm and dry. HEAD: Atraumatic. Normocephalic. EYES: Pupils equal and round. No scleral icterus. No injection or drainage. ENT: No nasal bleeding or discharge. Mucous membranes pink and moist. NECK: Trachea midline. No JVD. CARDIOVASCULAR: Regular rate and rhythm. RESPIRATORY: No accessory muscle use. Clear to auscultation. Breath sounds equal bilaterally. GASTROINTESTINAL: Abdomen soft, non-tender, nondistended. Hepatic and splenic margins not palpable. MUSCULOSKELETAL: Extremities without clubbing, cyanosis, or edema. No obvious deformities. Right foot appears well-healed. NEUROLOGICAL: Awake and alert. No obvious cranial nerve deficits. Motor grossly within normal limits. Five out of 5 muscle strength in the arms and legs. Normal speech. PSYCHIATRIC: Appropriate mood and affect; insight and judgment normal. Results - Labs CBC & Chem 7: 08/02/18 01:00 08/02/18 01:00 Labs: Short CBC 08/02/18 Range/Units 01:00 WBC 8.4 (4.0-11.0) th/mm3 Hgb 11.9 (11.6-15.3) gm/dL Hct 35.9 (35.0-46.0) % Plt Count 253 (150-450) th/mm3 BMP 08/02/18 01:00 Sodium 140 Potassium 3.6 Chloride 104 Carbon Dioxide 28.7 BUN 10 Creatinine 0.84 Calcium 8.8 Cardiac Enzymes 08/02/18 Range/Units 01:00 Total Creatine Kinase 25 L (26-192) U/L Troponin I Less than 0.02 L (0.02-0.05) ng/mL Liver Function 08/02/18 Range/Units 01:00 Total Bilirubin 0.2 (0.2-1.0) mg/dL AST 13 L (15-37) U/L ALT 13 (10-53) U/L Alkaline Phosphatase 106 (45-117) U/L Albumin 3.1 L (3.4-5.0) g/dL - Imaging Impressions Chest CTA 08/02/18 00:42 CONCLUSION: This study is negative for pulmonary embolism. Chest X-Ray 08/02/18 00:45 CONCLUSION: Widespread presumed septic emboli slightly improved Caprini VTE Risk Assessment Caprini VTE Risk Assessment: No/Low Risk (score <= 1) Caprini Risk Assessment Model: Point Value = 1 Point Value = 2 Point Value = 3 Point Value = 5 Age 41-60 Minor surgery BMI > 25 kg/m2 Swollen legs Varicose veins or History of unexplained or recurrent spontaneous Oral contraceptives or hormone replacement Sepsis (< 1 month) Serious lung disease, including pneumonia (< 1 month) Abnormal pulmonary function Acute myocardial infarction Congestive heart failure (< 1 month) History of inflammatory bowel disease Medical patient at bed rest Age 61-74 Arthroscopic surgery Major open surgery (> 45 min) Laparoscopic surgery (> 45 min) Malignancy Confined to bed (> 72 hours) Immobilizing plaster cast Central venous access Age >= 75 History of VTE Family history of VTE Factor V Leiden Prothrombin [id number] Lupus anticoagulant Anticardiolipin antibodies Elevated serum homocysteine Heparin-induced thrombocytopenia Other congenital or acquired thrombophilia Stroke (< 1 month) Elective arthroplasty Hip, pelvis, or leg fracture Acute spinal cord injury (< 1 month) Prophylaxis Regimen: Total Risk Factor Score Risk Level Prophylaxis Regimen 0-1 Low Early ambulation 2 Moderate Order ONE of the following: *Sequential Compression Device (SCD) *Heparin 5000 units SQ BID 3-4 Higher Order ONE of the following medications: *Heparin 5000 units SQ TID *Enoxaparin/Lovenox 40 mg SQ daily (WT < 150 kg, CrCl > 30 mL/min) *Enoxaparin/Lovenox 30 mg SQ daily (WT < 150 kg, CrCl > 10-29 mL/min) *Enoxaparin/Lovenox 30 mg SQ BID (WT < 150 kg, CrCl > 30 mL/min) AND/OR *Sequential Compression Device (SCD) 5 or more Highest Order ONE of the following medications: *Heparin 5000 units SQ TID (Preferred with Epidurals) *Enoxaparin/Lovenox 40 mg SQ daily (WT < 150 kg, CrCl > 30 mL/min) *Enoxaparin/Lovenox 30 mg SQ daily (WT < 150 kg, CrCl > 10-29 mL/min) *Enoxaparin/Lovenox 30 mg SQ BID (WT < 150 kg, CrCl > 30 mL/min) AND *Sequential Compression Device (SCD) Assessment and Plan - Plan //Sepsis //MRSA endocarditis -Heart rate 140s, temp of 100.4 -Lactic acid 2.1 -CTA negative for pulmonary embolism. -Heart rate has improved with IV fluids. -We will restart vancomycin and consult infectious disease. Discussed Condition With: Patient, nurse, ED physician.
--- NOTE | 2018-08-02 10:39 | P.PNADD ---
Addendum to Inpatient Note Reason for Addendum: Additional Documentation Additional information: Nursing does not report any acute events overnight. heart sounds RRR, no murmurs clear lungs BL, no acute distress continue abx, ID consult pending Pt verbally affirming she will stay this time. When I informed her that endocarditis does not spontaneously heal itself with incomplete abx tx, she is actually very surprised by this news. Patient says she consistently used opiates daily for the past 3 days once a day. Addendum: To address patient's anxiety, I recommend Vistaril which did work at 50 mg. Also recommend methadone 10 mg twice daily as needed for opiate withdrawal.
--- NOTE | 2018-08-02 12:42 | MB ---
cc: Arvin Painter MD DATE: 08/02/2018 REQUESTING PHYSICIAN: Nilton Bhardwaj MD. REASON FOR CONSULTATION: Endocarditis. HISTORY OF PRESENT ILLNESS: This is a 27-year-old white female who has known history of endocarditis of the tricuspid valve. The patient signed out against medical advice during antibiotic treatment. She had positive blood culture with MRSA on 07/11/2018 and repeated blood cultures were positive through 07/17/2018. The patient left the hospital against medical advice on 07/22/2018. She is a known IV drug user. She continued to use IV heroin up until the day before admission. She came to the emergency department because of chest pain. She also had an abscess of the right foot, which was drained and came back MRSA as well. This consultation is requested to address endocarditis treatment in this patient. PAST MEDICAL HISTORY: Endocarditis, IV drug abuse, abscess of the right foot, status post I and D of right foot abscess. ALLERGIES: NO KNOWN DRUG ALLERGIES. MEDICATIONS: Vancomycin, not know dose. SOCIAL HISTORY: Positive IV drug use in the form of heroin. Positive tobacco use. No alcohol. FAMILY HISTORY: Noncontributory. REVIEW OF SYSTEMS: All systems have been reviewed and are negative, except for chest pain and occasional sweats. PHYSICAL EXAMINATION: GENERAL: She is a thin female in no acute distress. She is awake and alert and oriented. VITAL SIGNS: Temperature 97.6, blood pressure 102/63, respirations 16, heart rate 84. HEENT: The head is atraumatic. Extraocular movements are grossly intact. Pupils reactive to light with icterus. Oropharynx moist mucosa without lesions. NECK: Supple without adenopathy or swelling. LUNGS: Clear to auscultation. HEART: Heart is regular rate and rhythm. A 1/6 systolic murmur at the left sternal border. No rubs or gallops. ABDOMEN: Bowel sounds present. Soft. RECTAL: Not performed. EXTREMITIES: No clubbing, cyanosis, or edema. The patient has a well-healed incision at the lateral aspect of the right foot at the base of the fifth toe. There is a suture in place at the incision. SKIN: No diffuse rash. NEUROLOGIC: Nonfocal. PSYCHIATRIC: The patient is calm and cooperative. LABORATORY DATA: WBC 8.4, platelets 253, hemoglobin 11.9, creatinine 0.84. Estimated GFR 81. IMPRESSION: 1. Known methicillin-resistant staphylococcus aureus endocarditis in a patient who is an IV drug user and continues to be noncompliant and also continues to use IV drugs. 2. She has septic emboli of the lung causing her shortness of breath. Chest x-ray shows multiple areas of nodular densities bilaterally in the lungs. 3. The patient has untreated endocarditis and needs to be fully treated with antibiotics. RECOMMENDATIONS: 1. Continue vancomycin, which has been started and given 4 weeks of the vancomycin. 2. Monitor blood cultures, which have been obtained. 3. Antibiotic treatment should be given in the hospital because of the patient's noncompliance and high risk of failure of treatment. Thank you for this consultation. Please call if further input is needed. Arvin Painter MD FFD/ts , 11:52 AM , 12:03 PM
[2018-08-02] MEDS: Sodium Chloride 0.9% 2 ML Flush BID IV.FLUSH SCH ×2 (13:09→20:16)
[2018-08-02] MEDS: Vancomycin Inj 1,000 MG in Sodium Chlor 0.9% Inj 250 ML IV.SIG SCH (13:09)
[2018-08-02] MEDS: Methadone 10 MG Tablet PO PRN (18:51)
--- NOTE | 2018-08-02 19:09 | ECG ---
Date Performed: 08/02/2018 Time Performed: 00:41:15 PTAGE: 27 years EKG: SINUS TACHYCARDIA WITH SHORT AR INTERVAL POSSIBLE RIGHT VENTRICULAR CONDUCTION DELAY ST DEV IATION AND MODERATE T-WAVE ABNORMALITY, CONSIDER LATERAL ISCHEMIA ST DEVIATION AND MODERATE T-WAVE AB NORMALITY, CONSIDER INFERIOR ISCHEMIA ABNORMAL ECG PREVIOUS TRACING : 07/21/2018 02.02 DOCTOR: Don Craig Interpretating Date/Time 08/02/2018 19:09:18
[2018-08-02] MEDS ORDERED: Acetaminophen 325 MG Tablet PO PRN (19:36)
[2018-08-03] MEDS: Sod Chloride 0.9% Inj 1,000 ML IV.CONT SCH ×3 (00:14→18:05)
[2018-08-03] MEDS: Vancomycin Inj 1,000 MG in Sodium Chlor 0.9% Inj 250 ML IV.SIG SCH ×3 (00:14→21:04)
[2018-08-03 06:03] LABS: Baso # (Auto) 0.1 th/mm3 (0.0-0.2); Baso % (Auto) 0.4 % (0.0-2.0); Eos # (Auto) 0.3 th/mm3 (0.0-0.4); Eos % (Auto) 1.6 % (0.0-4.0); Hematocrit 31.1 % (35.0-46.0); Hemoglobin 10.1 gm/dL (11.6-15.3); Lymph # (Auto) 3.4 th/mm3 (1.0-4.8); Lymph % (Auto) 22.2 % (9.0-44.0); Mean Corpuscular HGB Conc 32.6 % (32.0-36.0); Mean Corpuscular Hemoglobin 25.2 pg (27.0-34.0); Mean Corpuscular Volume 77.3 fL (80.0-100.0); Mean Platelet Volume 7.4 fL (7.0-11.0); Mono # (Auto) 0.8 th/mm3 (0.0-0.9); Neut # (Auto) 10.8 th/mm3 (1.8-7.7); Neut % (Auto) 70.8 % (16.0-70.0); Platelet Count 231 th/mm3 (150-450); Red Blood Count 4.02 mil/mm3 (4.00-5.30); White Blood Count 15.3 th/mm3 (4.0-11.0)
[2018-08-03 06:14] LABS: Anion Gap 7 meq/L (5-15); Blood Urea Nitrogen 7 mg/dL (7-18); Calcium 8.7 mg/dL (8.5-10.1); Chloride 109 meq/L (98-107); Glomerular Filtration Rate Greater Than 89 mL/min (>89); Glucose,Random 96 mg/dL (74-106); Potassium 4.2 meq/L (3.5-5.1); Sodium 142 meq/L (136-145)
[2018-08-03] MEDS: Methadone 10 MG Tablet PO PRN (06:21)
--- NOTE | 2018-08-03 08:25 | P.PN ---
Subjective Interval history: Follow-up for sepsis, MRSA endocarditis, pulmonary septic emboli. Patient reports she feels like she is going through heroin withdrawal. She reports sweats, nausea, and diarrhea overnight. She denies any chest pain or shortness of breath. She states she plans to stay in the hospital this time. She has no other medical complaints at this time. Physical Exam Vital signs: Vital Signs 08/02/18 09:00 08/02/18 10:00 08/02/18 11:00 Temperature Pulse Rate 80 78 80 Respiratory Rate Blood Pressure Pulse Oximetry 08/02/18 12:00 08/02/18 13:00 08/02/18 14:00 Temperature Pulse Rate 78 78 82 Respiratory Rate 20 Blood Pressure 117/88 Pulse Oximetry 08/02/18 15:00 08/02/18 16:00 08/02/18 17:00 Temperature Pulse Rate 80 88 80 Respiratory Rate Blood Pressure 119/91 H Pulse Oximetry 08/02/18 18:00 08/02/18 18:49 08/02/18 19:18 Temperature 102.7 F H 100.2 F H Pulse Rate 80 120 H 102 H Respiratory Rate 22 18 Blood Pressure 114/84 123/83 Pulse Oximetry 96 97 08/02/18 20:00 08/03/18 00:00 08/03/18 04:00 Temperature 98.3 F 97.6 F Pulse Rate 98 H 64 72 Respiratory Rate 16 16 Blood Pressure 122/67 116/67 Pulse Oximetry 96 99 Intake & Output 08/02/18 08/03/18 08/03/18 18:59 06:59 18:59 Intake Total 1890 / 1890 1250 / 1250 Balance 1890 / 1890 1250 / 1250 Weight 56.5 kg Intake: IV 1250 / 1250 1250 / 1250 NS Inj 1,000 ML @ 100 mls/hr IV 1000 / 1000 1000 / 1000 .CONT .Q10H [facility] Rx#:[id number] Vancomycin Inj 1,000 MG In NS 250 / 250 250 / 250 Inj 250 ML @ 250 mls/hr IV.SIG Q12H [facility] Rx#:[id number] Oral 640 / 640 Other: # Voids 4 2 Date of Last Bowel Movement 08/01/18 Narrative: GENERAL: Well-nourished, well-developed young female patient in NAD. SKIN: Warm and dry. No rash. HEENT: Normocephalic. Atraumatic. Pupils equal and round. Mucous membranes pink and moist. CARDIOVASCULAR: Regular rate and rhythm. No murmur appreciated. RESPIRATORY: No accessory muscle use. Clear to auscultation. Breath sounds equal bilaterally. GASTROINTESTINAL: Abdomen soft, non-tender, nondistended. Normoactive bowel sounds x4. MUSCULOSKELETAL: No obvious deformities. Extremities without clubbing, cyanosis , or edema. NEUROLOGICAL: Awake and alert. No obvious cranial nerve deficits. Motor grossly within normal limits. Moving all extremities spontaneously. Normal speech. PSYCHIATRIC: Appropriate mood and affect; insight and judgment normal. Results - Labs CBC & Chem 7: 08/03/18 04:54 08/03/18 04:54 Laboratory Results - last 24 hr 08/03/18 08/03/18 04:54 04:54 WBC 15.3 H RBC 4.02 Hgb 10.1 L Hct 31.1 L MCV 77.3 L MCH 25.2 L MCHC 32.6 RDW 17.0 Plt Count 231 MPV 7.4 Neut % (Auto) 70.8 H Lymph % (Auto) 22.2 [place] % (Auto) 5.0 Eos % (Auto) 1.6 Baso % (Auto) 0.4 Neut # (Auto) 10.8 H Lymph # (Auto) 3.4 [place] # (Auto) 0.8 Eos # (Auto) 0.3 Baso # (Auto) 0.1 WBC Differential . Differential Comment Auto diff final Sodium 142 Potassium 4.2 Chloride 109 H Carbon Dioxide 26.0 Anion Gap 7 BUN 7 Creatinine 0.64 Estimated GFR Greater than 89 Random Glucose 96 Calcium 8.7 - Imaging Chest CTA 08/02/18 00:42 CONCLUSION: This study is negative for pulmonary embolism. 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 Sepsis with MRSA Endocarditis and Pulmonary Septic Emboli: patient meets sepsis criteria with Tmax 102.7, Tachycardia HR 120s, leukocytosis WBC 15.3K, lactic acid 2.1, with source- endocarditis. -CXR shows widespread presumed septic emboli, slightly improved -CTA negative for PE but does show Multiple bilateral cavitary lung nodules consistent with septic emboli. 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 Not a candidate for outpatient IV infusion due to noncompliance and high risk of treatment failure.
[2018-08-03] MEDS: Sodium Chloride 0.9% 2 ML Flush BID IV.FLUSH SCH ×2 (10:17→23:41)
[2018-08-03] MEDS ORDERED: Pharmacy Ordered Lab Info OTHER ONE (11:45)
[2018-08-03] MEDS ORDERED: Loperamide 2 MG Capsule PO PRN (11:50)
[2018-08-04] MEDS: Vancomycin Inj 1,000 MG in Sodium Chlor 0.9% Inj 250 ML IV.SIG SCH ×3 (04:17→20:22)
[2018-08-04] MEDS: Sod Chloride 0.9% Inj 1,000 ML IV.CONT SCH (04:21)
--- NOTE | 2018-08-04 08:09 | P.PN ---
Subjective Interval history: Follow up for sepsis, MRSA endocarditis, pulmonary septic emboli. The patient reports continued sweats overnight with subjective fevers, no documented fevers. Denies any chest pain or shortness of breath. She reports one episode of diarrhea yesterday. Denies any nausea/vomiting. She is requesting her sutures be removed from the right foot. Denies any other medical complaints at this time. Physical Exam Vital signs: Vital Signs 08/03/18 10:57 08/03/18 12:00 08/03/18 16:00 Temperature 98.3 F 98.0 F Pulse Rate 77 59 L Respiratory Rate 16 17 Blood Pressure 112/60 112/67 Pulse Oximetry 97 97 97 08/03/18 19:56 08/03/18 20:00 08/04/18 00:00 Temperature 98.6 F 97.6 F Pulse Rate 75 79 53 L Respiratory Rate 18 20 Blood Pressure 104/68 98/57 L Pulse Oximetry 96 96 08/04/18 03:47 08/04/18 04:00 Temperature 98.0 F Pulse Rate 56 L 56 L Respiratory Rate Blood Pressure 111/71 Pulse Oximetry 97 Intake & Output 08/03/18 08/04/18 08/04/18 18:59 06:59 18:59 Intake Total 2990 / 2990 1880 / 1880 Balance 2990 / 2990 1880 / 1880 Weight 56.8 kg Intake: IV 2150 / 2150 1500 / 1500 NS Inj 1,000 ML @ 100 mls/hr IV 1900 / 1900 1000 / 1000 .CONT .Q10H [facility] Rx#:[id number] Vancomycin Inj 1,000 MG In NS 250 / 250 500 / 500 Inj 250 ML @ 250 mls/hr IV.SIG Q8H [facility] Rx#:[id number] Oral 840 / 840 380 / 380 Other: # Voids 4 3 Date of Last Bowel Movement 08/03/18 # Bowel Movements 1 Narrative: GENERAL: Well-nourished, well-developed young female patient in [facility]. SKIN: Warm and dry. No rash. HEENT: Normocephalic. Atraumatic. Pupils equal and round. Mucous membranes pink and moist. CARDIOVASCULAR: Regular rate and rhythm. No murmur appreciated. RESPIRATORY: No accessory muscle use. Clear to auscultation. Breath sounds equal bilaterally. GASTROINTESTINAL: Abdomen soft, non-tender, nondistended. Normoactive bowel sounds x4. MUSCULOSKELETAL: No obvious deformities. Extremities without clubbing, cyanosis , or edema. Right foot with one suture in place, healed well, no surrounding erythema/edema/drainage. NEUROLOGICAL: Awake and alert. No obvious cranial nerve deficits. Motor grossly within normal limits. Moving all extremities spontaneously. Normal speech. PSYCHIATRIC: Appropriate mood and affect; insight and judgment normal. Results - Labs CBC & Chem 7: 08/03/18 04:54 08/03/18 04:54 Laboratory Results - last 24 hr 08/03/18 11:45 Vancomycin Trough 9.8 Microbiology 08/02/18 01:00 Blood - Peripheral Aerobic Blood Culture - Preliminary gram positive rods 08/02/18 01:00 Blood - Peripheral Anaerobic Blood Culture - Preliminary No growth in 1 day 08/02/18 00:55 Blood - Peripheral Aerobic Blood Culture - Preliminary No growth in 1 day 08/02/18 00:55 Blood - Peripheral Anaerobic Blood Culture - Preliminary No growth in 1 day - Imaging Chest CTA 08/02/18 00:42 CONCLUSION: This study is negative for pulmonary embolism. 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 Sepsis with MRSA Endocarditis and Pulmonary Septic Emboli: patient meets sepsis criteria with Tmax 102.7, Tachycardia HR 120s, leukocytosis WBC 15.3K, lactic acid 2.1, with source- endocarditis. -CXR shows widespread presumed septic emboli, slightly improved -CTA negative for PE but does show Multiple bilateral cavitary lung nodules consistent with septic emboli. -Preliminary blood cultures with gram positive rods, continue to follow -S/p IVF hydration, now discontinued, tolerating oral intake -Continue on IV Vancomycin with pharmacy consult -Consult ID, appreciate assistance -Patient is to remain in hospital for manager long term care IV antibiotics due to history of noncompliance and high risk of treatment failure IVDU: drug of choice - heroin -Started on methadone 10mg bid -Avoid narcotic pain medication -Supportive treatment with IVF, zofran prn, imodium prn DVT Prophylaxis: Lovenox, SCDs, encourage ambulation Discharge Planning: Will need alf IV antibiotics to be completed in house. Not a candidate for outpatient IV infusion due to noncompliance and high risk of treatment failure.
[2018-08-04] MEDS: Methadone 10 MG Tablet PO PRN ×2 (08:25→20:25)
[2018-08-04] MEDS: Sodium Chloride 0.9% 2 ML Flush BID IV.FLUSH SCH ×2 (08:27→20:24)
[2018-08-04] MEDS ORDERED: Enoxaparin Inj 40 MG/0.4 ML Syringe SQ SCH (21:00)
[2018-08-05] MEDS ORDERED: Pharmacy Ordered Lab Info OTHER ONE (03:45)
[2018-08-05 04:10] LABS: Baso # (Auto) 0.1 th/mm3 (0.0-0.2); Baso % (Auto) 1.2 % (0.0-2.0); Eos # (Auto) 0.4 th/mm3 (0.0-0.4); Hematocrit 31.7 % (35.0-46.0); Hemoglobin 10.5 gm/dL (11.6-15.3); Lymph # (Auto) 3.3 th/mm3 (1.0-4.8); Lymph % (Auto) 38.7 % (9.0-44.0); Mean Corpuscular Hemoglobin 25.2 pg (27.0-34.0); Mean Corpuscular Volume 76.3 fL (80.0-100.0); Mean Platelet Volume 7.1 fL (7.0-11.0); Mono # (Auto) 0.5 th/mm3 (0.0-0.9); Mono % (Auto) 6.2 % (0.0-8.0); Neut # (Auto) 4.1 th/mm3 (1.8-7.7); Neut % (Auto) 48.9 % (16.0-70.0); Platelet Count 264 th/mm3 (150-450); Red Blood Count 4.15 mil/mm3 (4.00-5.30); Red Cell Distribution Width 17.3 % (11.6-17.2); White Blood Count 8.5 th/mm3 (4.0-11.0)
[2018-08-05] MEDS: Vancomycin Inj 1,000 MG in Sodium Chlor 0.9% Inj 250 ML IV.SIG SCH ×2 (04:25→11:06)
[2018-08-05 04:31] LABS: Anion Gap 8 meq/L (5-15); Blood Urea Nitrogen 7 mg/dL (7-18); Calcium 9.1 mg/dL (8.5-10.1); Carbon Dioxide 28.6 meq/L (21.0-32.0); Chloride 105 meq/L (98-107); Glomerular Filtration Rate Greater Than 89 mL/min (>89); Glucose,Random 90 mg/dL (74-106); Potassium 4.1 meq/L (3.5-5.1); Sodium 142 meq/L (136-145)
[2018-08-05] MEDS: Methadone 10 MG Tablet PO PRN (08:37)
[2018-08-05] MEDS: Sodium Chloride 0.9% 2 ML Flush BID IV.FLUSH SCH (08:38)
--- NOTE | 2018-08-05 14:18 | P.PN ---
Subjective Interval history: The patient is in bed says she feels a little bit improved today. No fever or chills overnight. No chest pain. Is eating fairly well. No nausea vomiting or diarrhea constipation. Physical Exam Vital signs: Vital Signs 08/04/18 14:40 08/04/18 16:00 08/04/18 19:48 Temperature 97.9 F Pulse Rate 80 107 H Respiratory Rate 20 Blood Pressure 110/58 L Pulse Oximetry 96 97 08/04/18 20:00 08/04/18 23:48 08/05/18 00:00 Temperature 98.3 F 96 F L Pulse Rate 79 58 L 108 H Respiratory Rate 20 16 Blood Pressure 120/94 H 123/101 H Pulse Oximetry 97 100 08/05/18 03:40 08/05/18 04:00 08/05/18 11:12 Temperature 97.8 F 98.1 F Pulse Rate 62 62 86 Respiratory Rate 20 17 Blood Pressure 130/80 101/69 Pulse Oximetry 97 96 Intake & Output 08/04/18 08/05/18 08/05/18 18:59 06:59 18:59 Intake Total 1730 / 1730 740 / 740 250 / 250 Balance 1730 / 1730 740 / 740 250 / 250 Weight 56.5 kg Intake: IV 1250 / 1250 500 / 500 250 / 250 NS Inj 1,000 ML @ 100 mls/hr IV 1000 / 1000 .CONT .Q10H [facility] Rx#:[id number] Vancomycin Inj 1,000 MG In NS 250 / 250 500 / 500 250 / 250 Inj 250 ML @ 250 mls/hr IV.SIG Q8H [facility] Rx#:[id number] Oral 480 / 480 240 / 240 Other: # Voids 3 4 Narrative: GENERAL: 27-year-old female, well-nourished, well-developed who appears in NAD. SKIN: Warm and dry. Multiple tatoos. CARDIOVASCULAR: Regular rate and rhythm. No murmur appreciated. RESPIRATORY: No accessory muscle use. Clear to auscultation. Breath sounds equal bilaterally. GASTROINTESTINAL: Abdomen soft, non-tender, nondistended. Normoactive bowel sounds x4. MUSCULOSKELETAL: No obvious deformities. Extremities without clubbing, cyanosis , or edema. Right foot with one suture in place, healed well, no surrounding erythema/edema/drainage. NEUROLOGICAL: Awake and alert. No obvious cranial nerve deficits. Motor grossly within normal limits. Moving all extremities spontaneously. Normal speech. PSYCHIATRIC: Appropriate mood and affect; insight and judgment normal. Results - Labs CBC & Chem 7: 08/05/18 03:55 08/05/18 03:55 Laboratory Results - last 24 hr 08/05/18 08/05/18 03:55 03:55 WBC 8.5 RBC 4.15 Hgb 10.5 L Hct 31.7 L MCV 76.3 L MCH 25.2 L MCHC 33.0 RDW 17.3 H Plt Count 264 MPV 7.1 Neut % (Auto) 48.9 Lymph % (Auto) 38.7 [place] % (Auto) 6.2 Eos % (Auto) 5.0 H Baso % (Auto) 1.2 Neut # (Auto) 4.1 Lymph # (Auto) 3.3 [place] # (Auto) 0.5 Eos # (Auto) 0.4 Baso # (Auto) 0.1 WBC Differential . Differential Comment Auto diff final Sodium 142 Potassium 4.1 Chloride 105 Carbon Dioxide 28.6 Anion Gap 8 BUN 7 Creatinine 0.73 Estimated GFR Greater than 89 Random Glucose 90 Calcium 9.1 Vancomycin Trough 20.0 H Microbiology 08/02/18 00:55 Blood - Peripheral Aerobic Blood Culture - Preliminary No growth in 3 days 08/02/18 00:55 Blood - Peripheral Anaerobic Blood Culture - Preliminary No growth in 3 days 08/02/18 01:00 Blood - Peripheral Aerobic Blood Culture - Final Bacillus species not anthracis 08/02/18 01:00 Blood - Peripheral Anaerobic Blood Culture - Preliminary No growth in 3 days Assessment and Plan - Plan 27-year-old female with a 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 Sepsis with MRSA Endocarditis and Pulmonary Septic Emboli: patient meets sepsis criteria with Tmax 102.7, Tachycardia HR 120s, leukocytosis WBC 15.3K, lactic acid 2.1, with source- endocarditis. -CXR shows widespread presumed septic emboli, slightly improved -CTA negative for PE but does show Multiple bilateral cavitary lung nodules consistent with septic emboli. 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 Not a candidate for outpatient IV infusion due to noncompliance and high risk of treatment failure.
[2018-08-05 16:23] VITALS: BP 111/74; RESP 18; TEMP 99.5; O2SAT 97
[2018-08-05 17:47] VITALS: PULSE 65
== END 2018-08-05 18:55 | disposition left against medical advice (07) ==
LOC: NEPE 00:24 → NEDA 02:55 → HCIS 04:25 → N04 18:41
PROVIDERS: ADMIT Hospitalist; ATTEND Hospitalist

== ENCOUNTER 2018-08-15 06:51 | Inpatient (IN) ==
[2018-08-15] MEDS ORDERED: Vancomycin Inj 1,000 MG in Sodium Chlor 0.9% Inj 250 ML IV.SIG ONE (07:43)
[2018-08-15] MEDS ORDERED: Methadone 10 MG Tablet PO ONE (07:43)
--- NOTE | 2018-08-15 07:45 | ED ---
HPI General Chief complaint: Chest Pain Stated complaint: resp Time Seen by Provider: 08/15/18 07:17 History of Present Illness HPI narrative: Is a 28-year-old female admitted IV drug abuser proven endocarditis June of this year who signed out 3 times AGAINST MEDICAL ADVICE since then presents the emergency department for evaluation of heart fluttering approximately 20 minutes prior to arrival. She states she is not feeling well. She states that typically she gets today for for admission and that is when cravings are really bad and she ultimately signed out AGAINST MEDICAL ADVICE. She denies any fevers cough or congestion but does endorse some shortness of breath. Review of her previous records shows that she had an abscess of her right foot on previous admission which was drained by surgery. Recommendations from infectious disease was 4 weeks of IV vancomycin as an inpatient which she has not yet completed. Her last admission which was last weeks patient had negative blood cultures x3 on 08/02/2018 with a fourth showing bacillus species not anthracis. Related Data Home Medications Medication Instructions Recorded Confirmed No Known Home Medications 08/02/18 08/15/18 Allergies Allergy/AdvReac Type Severity Reaction Status Date / Time No Known Allergies Allergy Verified 08/15/18 07:20 Review of Systems ROS: all other systems reviewed are negative PMFSH Medical History Medical History Endocarditis (Acute) Hepatitis C (Acute) IV drug abuse (Acute) MDRO (multiple drug resistant organisms) resistance (Acute ~07/11/18) Surgical History Surgical History No history of previous surgery (Acute) Social History Social History Substance History: Active Abuse Second Hand Smoke Exposure: No Smoking Status: Heavy tobacco smoker Tobacco Type: Cigarettes How Often Do You Have a Drink Containing Alcohol: Never Recent Travel in [place] within the Last 8 Weeks: No Recent Out of Country Travel within the Last 8 Weeks: No Substance Abuse Detail Heroin: Substance Use Status: Active Route Used Substance Abuse: Intramuscular and Intravenously Substance Frequency: daily Immunization History Tetanus Immunization: <5 Years Tetanus Immunization Year if Known: 2018 Exam Narrative Exam Narrative: GENERAL: Well-developed well-nourished appears older than stated age in no obvious distress. SKIN: Focused skin assessment warm/dry. HEAD: Atraumatic. Normocephalic. EYES: Pupils equal and round. No scleral icterus. No injection or drainage. ENT: No nasal bleeding or discharge. Mucous membranes pink and moist. NECK: Trachea midline. No JVD. CARDIOVASCULAR: Regular rhythm with tachycardia. No murmur appreciated. There is a 3 out of 6 systolic murmur best heard in the left sternal border. RESPIRATORY: Tachypnea. Clear to auscultation. Breath sounds equal bilaterally. GASTROINTESTINAL: Abdomen soft, non-tender, nondistended. Hepatic and splenic margins not palpable. MUSCULOSKELETAL: No obvious deformities. No clubbing. No cyanosis. No edema. NEUROLOGICAL: Awake and alert. No obvious cranial nerve deficits. Motor grossly within normal limits. Normal speech. PSYCHIATRIC: Appropriate mood and affect; insight and judgment normal. Course Initial Documented Vital Signs Temperature 98.3 F 08/15/18 07:03 Pulse Rate 128 H 08/15/18 07:03 Respiratory Rate 30 H 08/15/18 07:03 Blood Pressure 131/84 08/15/18 07:03 Pulse Oximetry 100 08/15/18 07:03 Last Documented Vital Signs Temperature 99.8 F H 08/15/18 09:31 Pulse Rate 119 H 08/15/18 09:31 Respiratory Rate 18 08/15/18 09:31 Blood Pressure 116/69 08/15/18 09:31 Pulse Oximetry 100 08/15/18 09:31 Medical Decision Making [facility] Narrative Medical decision making narrative: Patient room in the emerge department, tachycardic, lactic acid mildly elevated 3.7, 2 L of normal saline given in emerge department as well as a gram of vancomycin. The patient appears well and in no obvious distress. She does have heart murmur apparent. Ultimately CT PE protocol negative, the patient does have what appear to be resolving septic pulmonary emboli and cavitary lesions on her CT. Remainder of the labs were really unremarkable her white count is minimally decreased. Given the prior recommendations from infectious disease for 4 weeks of IV antibiotic setting the patient needs to be readmitted to the hospital and it was discussed with her that she needs to be complete the treatment otherwise she is at risk of and permanent disability the patient verbalized understanding and agreed for admission. This patient was discussed with Dr. Horne Medical Screen Exam Complete: Yes Emergency Medical Condition: Yes Lab Data Result diagrams: 08/15/18 07:25 08/15/18 07:25 POC Results POC Urine Results Negative Lab Results 08/15/18 08/15/18 08/15/18 Range/Units 07:25 07:25 07:30 WBC 3.2 L (4.0-11.0) th/mm3 RBC 4.63 (4.00-5.30) mil/mm3 Hgb 11.7 (11.6-15.3) gm/dL Hct 36.6 (35.0-46.0) % MCV 79.1 L (80.0-100.0) fL MCH 25.3 L (27.0-34.0) pg MCHC 32.0 (32.0-36.0) % RDW 18.1 H (11.6-17.2) % Plt Count 210 (150-450) th/mm3 MPV 7.2 (7.0-11.0) fL Neut % (Auto) 69.6 (16.0-70.0) % Lymph % (Auto) 28.1 (9.0-44.0) % [place] % (Auto) 1.1 (0.0-8.0) % Eos % (Auto) 0.9 (0.0-4.0) % Baso % (Auto) 0.3 (0.0-2.0) % Neut # (Auto) 2.2 (1.8-7.7) th/mm3 Lymph # (Auto) 0.9 L (1.0-4.8) th/mm3 [place] # (Auto) 0.0 (0.0-0.9) th/mm3 Eos # (Auto) 0.0 (0.0-0.4) th/mm3 Baso # (Auto) 0.0 (0.0-0.2) th/mm3 WBC Differential . Differential Comment Auto diff final Sodium 138 (136-145) meq/L Potassium 3.9 (3.5-5.1) meq/L Chloride 100 (98-107) meq/L Carbon Dioxide 27.8 (21.0-32.0) meq/L Anion Gap 10 (5-15) meq/L BUN 6 L (7-18) mg/dL Creatinine 0.77 (0.50-1.00) mg/dL Estimated GFR 89 (>89) mL/min Random Glucose 93 (74-106) mg/dL Lactic Acid 3.7 H (0.4-2.0) mmol/L Calcium 9.0 (8.5-10.1) mg/dL Magnesium 1.9 (1.5-2.5) mg/dL Total Bilirubin 0.2 (0.2-1.0) mg/dL AST 19 (15-37) U/L ALT 14 (10-53) U/L Alkaline Phosphatase 119 H (45-117) U/L Total Protein 8.7 H (6.4-8.2) g/dL Albumin 3.3 L (3.4-5.0) g/dL Urine Color (Yellw/Straw) Urine Clarity (Clear) Urine pH (5.0-8.5) Ur Specific [place] (1.002-1.035) Urine Protein (Neg-Trace) mg/dL Urine Glucose (UA) (Negative) mg/dL Urine Ketones (Negative) mg/dL Urine Occult Blood (Negative) Urine Nitrate (Negative) Urine Bilirubin (Negative) Urine Urobilinogen (Less than 2) mg/dL Ur Leukocyte Esterase (Negative) Urine RBC (0-3) /hpf Urine WBC (0-5) /hpf Ur Squamous Epith Cells (0-5) /hpf Urine Mucus (Occasional) /lpf Micro UA Comment Ur Microscopic Review Urine Culture Comments Urine Opiates Screen (Neg) Ur Barbiturates Screen (Neg) Ur Amphetamines Screen (Neg) U Benzodiazepines Scrn (Neg) Urine Cocaine Screen (Neg) U Cannabinoids Screen (Neg) 08/15/18 08/15/18 Range/Units 08:06 08:06 WBC (4.0-11.0) th/mm3 RBC (4.00-5.30) mil/mm3 Hgb (11.6-15.3) gm/dL Hct (35.0-46.0) % MCV (80.0-100.0) fL MCH (27.0-34.0) pg MCHC (32.0-36.0) % RDW (11.6-17.2) % Plt Count (150-450) th/mm3 MPV (7.0-11.0) fL Neut % (Auto) (16.0-70.0) % Lymph % (Auto) (9.0-44.0) % [place] % (Auto) (0.0-8.0) % Eos % (Auto) (0.0-4.0) % Baso % (Auto) (0.0-2.0) % Neut # (Auto) (1.8-7.7) th/mm3 Lymph # (Auto) (1.0-4.8) th/mm3 [place] # (Auto) (0.0-0.9) th/mm3 Eos # (Auto) (0.0-0.4) th/mm3 Baso # (Auto) (0.0-0.2) th/mm3 WBC Differential Differential Comment Sodium (136-145) meq/L Potassium (3.5-5.1) meq/L Chloride (98-107) meq/L Carbon Dioxide (21.0-32.0) meq/L Anion Gap (5-15) meq/L BUN (7-18) mg/dL Creatinine (0.50-1.00) mg/dL Estimated GFR (>89) mL/min Random Glucose (74-106) mg/dL Lactic Acid (0.4-2.0) mmol/L Calcium (8.5-10.1) mg/dL Magnesium (1.5-2.5) mg/dL Total Bilirubin (0.2-1.0) mg/dL AST (15-37) U/L ALT (10-53) U/L Alkaline Phosphatase (45-117) U/L Total Protein (6.4-8.2) g/dL Albumin (3.4-5.0) g/dL Urine Color Straw (Yellw/Straw) Urine Clarity Clear (Clear) Urine pH 5.0 (5.0-8.5) Ur Specific [place] 1.006 (1.002-1.035) Urine Protein Negative (Neg-Trace) mg/dL Urine Glucose (UA) Negative (Negative) mg/dL Urine Ketones Negative (Negative) mg/dL Urine Occult Blood Small H (Negative) Urine Nitrate Negative (Negative) Urine Bilirubin Negative (Negative) Urine Urobilinogen Less than 2 (Less than 2) mg/dL Ur Leukocyte Esterase Negative (Negative) Urine RBC Less than 1 (0-3) /hpf Urine WBC 1 (0-5) /hpf Ur Squamous Epith Cells <1 (0-5) /hpf Urine Mucus Few H (Occasional) /lpf Micro UA Comment Culture not ind Ur Microscopic Review Not Reportable Urine Culture Comments Culture not ind Urine Opiates Screen Pos H (Neg) Ur Barbiturates Screen Neg (Neg) Ur Amphetamines Screen Neg (Neg) U Benzodiazepines Scrn Neg (Neg) Urine Cocaine Screen Neg (Neg) U Cannabinoids Screen Neg (Neg) Imaging Data Radiologist's impression: Chest X-Ray 08/15/18 07:20 CONCLUSION: Significant improvement in the cavitary nodules but a few persistent nodular densities. Chest CTA 08/15/18 07:43 CONCLUSION: 1. No evidence of acute pulmonary embolism. 2. Decreasing size of multiple bilateral cavitary nodules characteristic of septic emboli. 3. Otherwise stable exam. Discharge Plan Discharge Disposition Patient Disposition: 30 Still Patient Discharge Condition Condition: Fair Discharge Details Diagnosis: Endocarditis, IVDU (intravenous drug user), Heart murmur Physicians Team ED Provider: Byron Brady Primary Care Provider: Primary Care Lety Lozano Attending Provider: Stefan Horne Discharge Interventions Interventions: Vital Signs Last Done: 08/15/18 09:31 Status ED Status: Admitted Patient
[2018-08-15 07:50] LABS: Baso % (Auto) 0.3 % (0.0-2.0); Eos % (Auto) 0.9 % (0.0-4.0); Hematocrit 36.6 % (35.0-46.0); Hemoglobin 11.7 gm/dL (11.6-15.3); Lymph # (Auto) 0.9 th/mm3 (1.0-4.8); Lymph % (Auto) 28.1 % (9.0-44.0); Mean Corpuscular Hemoglobin 25.3 pg (27.0-34.0); Mean Corpuscular Volume 79.1 fL (80.0-100.0); Mean Platelet Volume 7.2 fL (7.0-11.0); Mono % (Auto) 1.1 % (0.0-8.0); Neut # (Auto) 2.2 th/mm3 (1.8-7.7); Neut % (Auto) 69.6 % (16.0-70.0); Platelet Count 210 th/mm3 (150-450); Red Blood Count 4.63 mil/mm3 (4.00-5.30); Red Cell Distribution Width 18.1 % (11.6-17.2); White Blood Count 3.2 th/mm3 (4.0-11.0)
--- NOTE | 2018-08-15 07:52 | XR ---
EXAM DATE: 08/15/2018 7:45 AM EST AGE/SEX: 28 years / Female INDICATIONS: Fever, body aches with weakness, cough, short of breath. CLINICAL DATA: This is the patient's initial encounter. Patient reports that signs and symptoms have been present for 1 day and indicates a pain score of 8/10. MEDICAL/SURGICAL HISTORY: Cirrhosis. Hepatitis C. None. [place] [facility] [place]. . FINDINGS: A single AP view of the chest demonstrates improvement in the cavitary nodules scattered throughout b oth lungs. A small 1 cm nodule remains within the right lower lobe with subcentimeter nodular densiti es in the left upper lobe. The heart is normal in size. No effusions. Bony structures are unremarkabl e. CONCLUSION: Significant improvement in the cavitary nodules but a few persistent nodular densities. Electronically signed by: Liu Bernardo MD 08/15/2018 7:51 AM EST
[2018-08-15] MEDS: Sod Chloride 0.9% Inj 1,000 ML IV.SIG SCH ×2 (07:56→10:05)
[2018-08-15 08:08] LABS: Alkaline Phosphatase 119 U/L (45-117); Total Protein 8.7 g/dL (6.4-8.2)
[2018-08-15 08:14] LABS: Alanine Aminotransferase 14 U/L (10-53); Albumin 3.3 g/dL (3.4-5.0); Anion Gap 10 meq/L (5-15); Aspartate Aminotransferase 19 U/L (15-37); Blood Urea Nitrogen 6 mg/dL (7-18); Carbon Dioxide 27.8 meq/L (21.0-32.0); Chloride 100 meq/L (98-107); Glomerular Filtration Rate 89 mL/min (>89); Glucose,Random 93 mg/dL (74-106); Magnesium 1.9 mg/dL (1.5-2.5); Potassium 3.9 meq/L (3.5-5.1); Sodium 138 meq/L (136-145)
[2018-08-15 08:52] LABS: Amphetamine Screen,Urine Neg (Neg); Barbiturate Screen,Urine Neg (Neg); Cannabinoid Screen,Urine Neg (Neg); Cocaine Screen,Urine Neg (Neg)
[2018-08-15 08:58] LABS: Bilirubin,Urine Negative (Negative); Clarity,Urine Clear (Clear); Color,Urine Straw (Yellw/Straw); Glucose,Urine (UA) Negative (Negative); Leukocyte Esterase,Urine Negative (Negative); Mucus,Urine Few /lpf (Occasional); Nitrite,Urine Negative (Negative); Specific Gravity,Urine 1.006 (1.002-1.035); Squamous Epithelial Cell,Urine <1 /hpf (0-5)
[2018-08-15 09:14] LABS: Opiate Screen,Urine Pos (Neg)
--- NOTE | 2018-08-15 09:41 | CT ---
EXAM DATE: 08/15/2018 9:27 AM EST AGE/SEX: 28 years / Female INDICATIONS: Chest pain, shortness of breath. History of endocarditis. CLINICAL DATA: This is the patient's initial encounter. Patient reports that signs and symptoms have been present for 1 day and indicates a pain score of 3/10. MEDICAL/SURGICAL HISTORY: Hepatitis C. Endocarditis. None. RADIATION DOSE: 6.25 CTDI (mGy) [place] [facility] [place]AST W 3D, 08/02/2018. . TECHNIQUE: Volumetric scanning was performed using a multi-row detector CT scanner during bolus infu dylan of 74 ml Omnipaque 350 (iohexol) nonionic water-soluble contrast as a single exam dose. The chris a was post processed with a variety of visualization algorithms including full volume maximum intensi ty projection and sliding thin slab reformation. Using automated exposure control and adjustment of t he mA and/or kV according to patient size, radiation dose was kept as low as reasonably achievable to obtain optimal diagnostic quality images. DICOM format image data is available electronically for r eview and comparison. FINDINGS: Pulmonary Arteries: No filling defects are seen in the pulmonary arteries out to the subsegmental ve ssels. The left and right pulmonary arteries are normal in diameter. Lung: Numerous bilateral cavitary nodular opacities are again identified. Compared to the prior stud y the opacities have decreased in size by at least 50%. There is no evidence of new airspace disease. Effusion: None. Mediastinum: No evidence of mediastinal or hilar adenopathy. Other: The axilla is unremarkable. CONCLUSION: 1. No evidence of acute pulmonary embolism. 2. Decreasing size of multiple bilateral cavitary nodules characteristic of septic emboli. 3. Otherwise stable exam. Electronically signed by: Agustin Pinto MD 08/15/2018 9:39 AM EST
[2018-08-15] MEDS ORDERED: Vancomycin Consult Pharmacy OTHER PRN (10:05)
[2018-08-15] MEDS ORDERED: Acetaminophen 325 MG Tablet PO PRN (11:26)
--- NOTE | 2018-08-15 11:26 | P.HPIM ---
History of Present Illness Primary Care Physician: No Primary Care Physician Chief Complaint: 'I want to be treated'. History of Present Illness: patient is a 28 y/o female, VIKASH, who was admitted to this hospital with endocarditis and bacteremia and signed out a few times presented back to ER. she was supposed to finish the inhouse IV antibiotic therapy with Vancomycin. however she says that ' she had a problem with communication with the medical staff' and then she decided to leave a few days ago. she denies any IV drug injection since then. she denies any fever, chills. she says that she had some on and off chest pain but is currently chest pain free. Inpatient Certification: I certify that the inpatient services were ordered in accordance with Medicare regulations governing the order. This includes certification that hospital inpatient services are reasonable and necessary and in the case of services not specified as inpatient-only under 42 CFR 419.22(n), that they are appropriately provided as inpatient services in accordance to with the 2-midnight benchmark under 43 CFR 412.3(e) Review of Systems All other systems reviewed negative except as stated in HPI PMFSH - History History Provided By: Patient - Medical History Medical History: Medical History (Last Reviewed 08/15/18 @ 11:22 by Stefan Horne MD) Endocarditis Hepatitis C IV drug abuse MDRO (multiple drug resistant organisms) resistance Onset Date: ~07/11/18 - Surgical History Surgical History: Surgical History (Last Reviewed 08/15/18 @ 11:22 by Stefan Horne MD) No history of previous surgery - Family History Family History: Family History (Last Reviewed 08/15/18 @ 11:22 by Stefan Horne MD) Other Osteoarthritis - Tobacco History Second Hand Smoke Exposure: No Tobacco Use In Past 30 Days: Yes Smoking Status: Heavy tobacco smoker Tobacco Type: Cigarettes - Alcohol History How Often Do You Have a Drink Containing Alcohol: Never - Substance Use History Substance History: Active Abuse - Substance Use Type Heroin Status: Active Route Used: Intramuscular, Intravenously Frequency: daily - Travel History Recent Travel in the [place] Within the Last 8 Weeks: No Recent Travel Out of the Country Within the Last 8 Weeks: No - Immunization History Tetanus Immunization: <5 Years Tetanus Immunization Year if Known: 2018 Medications and Allergies Active Medications: Active Medications Vancomycin HCl 1,000 mg/ (Sodium Chloride) 250 mls @ 250 mls/hr IV.SIG Q12H [facility] Miscellaneous Information ([facility] [place] [facility] Ordered Lab Info) 0 each OTHER ONCE ONE Stop: 08/17/18 07:46 Pharmacy Profile Note (Vancomycin Consult Pharmacy) 1 each OTHER UNSCH PRN PRN Reason: Pharmacy to dose Allergies Allergy/AdvReac Type Severity Reaction Status Date / Time No Known Allergies Allergy Verified 08/15/18 07:20 Home Medications Medication Instructions Recorded Confirmed Type No Known Home Medications 08/02/18 08/15/18 History Exam Vital signs: Vital Signs 08/15/18 07:03 08/15/18 07:18 08/15/18 07:35 Temperature 98.3 F Pulse Rate 128 H 128 H Respiratory Rate 30 H 24 Blood Pressure 131/84 133/76 Pulse Oximetry 100 100 100 08/15/18 07:38 08/15/18 08:22 08/15/18 09:31 Temperature 99.5 F 99.5 F 99.8 F H Pulse Rate 120 H 119 H Respiratory Rate 20 18 Blood Pressure 129/67 116/69 Pulse Oximetry 100 100 Intake & Output 08/14/18 08/15/18 08/15/18 18:59 06:59 18:59 Intake Total 1250 / 1250 Balance 1250 / 1250 Weight 57.4 kg Intake: IV 1250 / 1250 NS Inj 1,000 ML @ 2000 mls/hr 1000 / 1000 IV.SIG Q30M [facility] Rx#:[id number] Vancomycin Inj 1,000 MG In NS 250 / 250 Inj 250 ML @ 250 mls/hr IV.SIG ONCE ONE Rx#:[id number] - Constitutional no acute distress - Routine HEENT Exam Eye: Present: PERRL - Routine Neck Exam Present: supple - Routine Respiratory Exam Present: CTA bilaterally - Routine Cardiovascular Exam Present: tachycardia - Routine Abdominal Exam Present: soft - Routine Extremities Exam Comments: no pedal edema. - Routine Neurological Exam Present: alert, oriented X3 Results - Labs CBC & Chem 7: 08/15/18 07:25 08/15/18 07:25 Labs: Short CBC 08/15/18 Range/Units 07:25 WBC 3.2 L (4.0-11.0) th/mm3 Hgb 11.7 (11.6-15.3) gm/dL Hct 36.6 (35.0-46.0) % Plt Count 210 (150-450) th/mm3 BMP 08/15/18 07:25 Sodium 138 Potassium 3.9 Chloride 100 Carbon Dioxide 27.8 BUN 6 L Creatinine 0.77 Calcium 9.0 Liver Function 08/15/18 Range/Units 07:25 Total Bilirubin 0.2 (0.2-1.0) mg/dL AST 19 (15-37) U/L ALT 14 (10-53) U/L Alkaline Phosphatase 119 H (45-117) U/L Albumin 3.3 L (3.4-5.0) g/dL Urine 08/15/18 Range/Units 08:06 Urine Color Straw (Yellw/Straw) Urine Clarity Clear (Clear) Urine pH 5.0 (5.0-8.5) Ur Specific [place] 1.006 (1.002-1.035) Urine Protein Negative (Neg-Trace) mg/dL Urine Glucose (UA) Negative (Negative) mg/dL - Imaging Impressions Chest X-Ray 08/15/18 07:20 CONCLUSION: Significant improvement in the cavitary nodules but a few persistent nodular densities. Chest CTA 08/15/18 07:43 CONCLUSION: 1. No evidence of acute pulmonary embolism. 2. Decreasing size of multiple bilateral cavitary nodules characteristic of septic emboli. 3. Otherwise stable exam. Caprini VTE Risk Assessment Caprini VTE Risk Assessment: Moderate/High Risk (score >= 2) Caprini Risk Assessment Model: Point Value = 1 Point Value = 2 Point Value = 3 Point Value = 5 Age 41-60 Minor surgery BMI > 25 kg/m2 Swollen legs Varicose veins or History of unexplained or recurrent spontaneous Oral contraceptives or hormone replacement Sepsis (< 1 month) Serious lung disease, including pneumonia (< 1 month) Abnormal pulmonary function Acute myocardial infarction Congestive heart failure (< 1 month) History of inflammatory bowel disease Medical patient at bed rest Age 61-74 Arthroscopic surgery Major open surgery (> 45 min) Laparoscopic surgery (> 45 min) Malignancy Confined to bed (> 72 hours) Immobilizing plaster cast Central venous access Age >= 75 History of VTE Family history of VTE Factor V Leiden Prothrombin [id number] Lupus anticoagulant Anticardiolipin antibodies Elevated serum homocysteine Heparin-induced thrombocytopenia Other congenital or acquired thrombophilia Stroke (< 1 month) Elective arthroplasty Hip, pelvis, or leg fracture Acute spinal cord injury (< 1 month) Prophylaxis Regimen: Total Risk Factor Score Risk Level Prophylaxis Regimen 0-1 Low Early ambulation 2 Moderate Order ONE of the following: *Sequential Compression Device (SCD) *Heparin 5000 units SQ BID 3-4 Higher Order ONE of the following medications: *Heparin 5000 units SQ TID *Enoxaparin/Lovenox 40 mg SQ daily (WT < 150 kg, CrCl > 30 mL/min) *Enoxaparin/Lovenox 30 mg SQ daily (WT < 150 kg, CrCl > 10-29 mL/min) *Enoxaparin/Lovenox 30 mg SQ BID (WT < 150 kg, CrCl > 30 mL/min) AND/OR *Sequential Compression Device (SCD) 5 or more Highest Order ONE of the following medications: *Heparin 5000 units SQ TID (Preferred with Epidurals) *Enoxaparin/Lovenox 40 mg SQ daily (WT < 150 kg, CrCl > 30 mL/min) *Enoxaparin/Lovenox 30 mg SQ daily (WT < 150 kg, CrCl > 10-29 mL/min) *Enoxaparin/Lovenox 30 mg SQ BID (WT < 150 kg, CrCl > 30 mL/min) AND *Sequential Compression Device (SCD) Assessment and Plan - Plan 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 -chest CTA with no PE and improving pulmonary septic emboli -Continue on IV Vancomycin with pharmacy consult -will follow the cultures. 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
[2018-08-15] MEDS: Sod Chloride 0.9% Inj 1,000 ML IV.CONT SCH (11:38)
--- NOTE | 2018-08-15 14:11 | ECG ---
Date Performed: 08/15/2018 Time Performed: 07:22:43 PTAGE: 28 years EKG: SINUS TACHYCARDIA POSSIBLE RIGHT VENTRICULAR CONDUCTION DELAY NONSPECIFIC ST & T-WAVE ABNOR MALITY Left ventricular hypertrophy Compared to previous tracing there has been improvement in the in ferolateral ST segment changes in the setting of the Left ventricular hypertrophy but they do persist . Otherwise no significant serial change. ABNORMAL RHYTHM ECG PREVIOUS TRACING : 08/02/18 DOCTOR: Gemma Godinez Interpretating Date/Time 08/15/2018 14:10:33
[2018-08-15] MEDS: DAPTOmycin Inj 500 MG in Sodium Chlor 0.9% Inj 100 ML IV.SIG SCH (16:33)
--- NOTE | 2018-08-15 16:42 | MB ---
cc: Arvin Painter MD DATE: 08/15/2018 REQUESTING PHYSICIAN: Dr. Honre. REASON: Endocarditis. HISTORY OF PRESENT ILLNESS: This is a 28-year-old white female who was diagnosed with endocarditis and has been noncompliant with treatment. The patient signed out against medical advice from this hospital on a few occasions. She last signed out on 08/05/2018. She never completed a complete course of antibiotics for the infection. She was diagnosed with septic emboli along with endocarditis due to methicillin-resistant Staphylococcus aureus involving the tricuspid valve in June 2018. She had positive MRSA bacteria on 07/11/2018 and continued to have positive cultures until 07/17/2018. She presented again to the emergency department today because of chest pain. She states that she got to the point where she could not tolerate it anymore and that she was having some shortness of breath as well. The patient also had a wound infection of her right foot, which had MRSA. She had undergone incision and drainage of the abscess and it resolved. The patient uses IV drugs. She; however, denied any use of IV drugs since she left against medical advice on 07/05/2018. This consultation is requested by the attending physician for antibiotic management. It was recommended that the patient stay in-house for treatment for this infection. It was recommended that she receive 4 weeks of IV antibiotics. She is having low-grade fever with temperature maximum 100.5 degrees earlier today. PAST MEDICAL HISTORY: IV drug abuse, endocarditis of the tricuspid valve with about 1 cm non-septal leaflet vegetation and moderate tricuspid regurgitation, abscess of the right foot. ALLERGIES: NO KNOWN DRUG ALLERGIES. MEDICATIONS: 1. Vancomycin. 2. Methadone. 3. Lovenox. 4. Tylenol. SOCIAL HISTORY: Positive IV drug use. Positive tobacco use. No alcohol. FAMILY HISTORY: Noncontributory. REVIEW OF SYSTEMS: All systems have been reviewed and are negative. PHYSICAL EXAMINATION: GENERAL: This is a thin female in no acute distress. She is awake and alert and oriented. VITAL SIGNS: Temperature 98.6, BP 124/65, respirations 20, heart rate 101. HEENT: The head is atraumatic. Extraocular movements are grossly intact. Pupils reactive to light. No icterus. Oropharynx: Moist mucosa. No lesions. NECK: Supple without adenopathy. LUNGS: Clear breath sounds. HEART: Regular S1, S2, without audible murmurs, rubs or gallops. ABDOMEN: Bowel sounds present. Soft, nontender. RECTAL: Not performed. EXTREMITIES: No clubbing, cyanosis or edema. SKIN: No rash. NEUROLOGIC: No gross focal findings. PSYCHIATRIC: Patient is calm and cooperative. LABORATORY DATA: WBC 3.2, platelets 210. hemoglobin 11.7. Creatinine 0.77, BUN 6, sodium 138. IMPRESSION: 1. 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 The patient noncompliant with antibiotic treatment. Treatment has been interrupted on several occasions. 2. Septic emboli. The patient has recurrent chest pain from the emboli. 3. Intravenous drug abuse and noncompliant with treatment in hospital. RECOMMENDATIONS: 1. Continue treatment with vancomycin. The patient continued leaving the hospital against medical advice, interrupts treatment and hence will make it difficult to eradicate her infection and indeed she may end up having complications far beyond what she has experienced from the MRSA endocarditis. I recommend continuing to give her the antibiotics to attempt to eradicate the bacterial infection and follow repeat cultures. It appears that the emboli may be improving; however, she continues to have problems with symptomatic chest pain. 2. Discontinue vancomycin. 3. Begin daptomycin. 4. Monitor response to antibiotic treatment. The plan is to give the patient a 4-week course of antibiotics uninterrupted. Thank you for this consultation. MD USMAN Mann/melanie/chanel , 03:32 PM , 03:46 PM PATEL
[2018-08-15] MEDS ORDERED: Vancomycin Inj 1,000 MG in Sodium Chlor 0.9% Inj 250 ML IV.SIG SCH (20:00)
[2018-08-15] MEDS: Methadone 10 MG Tablet PO SCH (20:46)
[2018-08-16] MEDS: Sod Chloride 0.9% Inj 1,000 ML IV.CONT SCH ×2 (00:12→07:40)
[2018-08-16 07:33] LABS: Baso # (Auto) 0.1 th/mm3 (0.0-0.2); Baso % (Auto) 0.8 % (0.0-2.0); Eos # (Auto) 0.2 th/mm3 (0.0-0.4); Eos % (Auto) 2.6 % (0.0-4.0); Hematocrit 28.6 % (35.0-46.0); Hemoglobin 9.6 gm/dL (11.6-15.3); Lymph # (Auto) 2.3 th/mm3 (1.0-4.8); Lymph % (Auto) 28.6 % (9.0-44.0); Mean Corpuscular HGB Conc 33.5 % (32.0-36.0); Mean Corpuscular Hemoglobin 25.7 pg (27.0-34.0); Mean Platelet Volume 7.6 fL (7.0-11.0); Mono # (Auto) 0.6 th/mm3 (0.0-0.9); Neut # (Auto) 4.8 th/mm3 (1.8-7.7); Platelet Count 191 th/mm3 (150-450); Red Blood Count 3.72 mil/mm3 (4.00-5.30); Red Cell Distribution Width 18.3 % (11.6-17.2)
[2018-08-16] MEDS: Methadone 10 MG Tablet PO SCH ×2 (08:09→22:13)
[2018-08-16] MEDS: Enoxaparin Inj 40 MG/0.4 ML Syringe SQ SCH (08:09)
[2018-08-16] MEDS ORDERED: Bisacodyl 10 MG Supp RECTAL PRN (10:42)
--- NOTE | 2018-08-16 10:42 | P.PNIM ---
Subjective Interval history: Patient reports no problems overnight. Would like to have a regular diet from the cardiac diet. Understands that she will need to be here for 4 more weeks for IV antibiotics. Physical Exam Vital signs: Last Vital Signs Temp 97.7 F 08/16/18 08:00 Pulse 77 08/16/18 09:00 Resp 18 08/16/18 08:00 BP 103/66 08/16/18 08:00 Pulse Ox 100 08/16/18 08:00 Intake & Output 08/14/18 08/15/18 08/16/18 08/17/18 06:59 06:59 06:59 06:59 Intake Total 3590 / 3590 1350 / 1350 Balance 3590 / 3590 1350 / 1350 Weight 57.9 kg Narrative: GENERAL: This is a well-nourished, well-developed patient, in no apparent distress. CARDIOVASCULAR: Regular rate and rhythm RESPIRATORY: Clear to auscultation. Breath sounds equal bilaterally. No wheezes , rales, or rhonchi. GASTROINTESTINAL: Abdomen soft, non-tender, nondistended. Normal active bowel sounds MUSCULOSKELETAL: Extremities without clubbing, cyanosis, or edema. NEURO: Alert & Oriented x4 to person, place, time, situation. Moves all ext x4 Results Labs CBC & Chem 7: 08/16/18 07:07 08/15/18 07:25 Assessment and Plan Plan 28-year-old white female with a previous history of MRSA endocarditis and pulmonary septic emboli who left AGAINST MEDICAL ADVICE re-presented back for continued treatment MRSA Endocarditis and Pulmonary Septic Emboli-previous history of noncompliance -chest CTA with no PE and improving pulmonary septic emboli Appreciate infectious disease Dr. Painter's recommendations Will need to complete daptomycin for the next 4 weeks. 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
[2018-08-16] MEDS: DAPTOmycin Inj 500 MG in Sodium Chlor 0.9% Inj 100 ML IV.SIG SCH (16:00)
[2018-08-17] MEDS ORDERED: Pharmacy Ordered Lab Info OTHER ONE (07:45)
[2018-08-17] MEDS: Enoxaparin Inj 40 MG/0.4 ML Syringe SQ SCH ×2 (09:38→14:14)
[2018-08-17] MEDS: Methadone 10 MG Tablet PO SCH ×2 (09:38→22:46)
[2018-08-17] MEDS: Senna/Docusate Sodium 8.6/50 MG Tablet PO SCH (09:38)
--- NOTE | 2018-08-17 15:35 | P.PNIM ---
Subjective Interval history: Pt found lying in bed in room, dressed in hospital gown, NAD. Currently being treated for MRSA Endocarditis and Pulmonary Septic Emboli in the context of IV Drug Use, Hx of Noncompliance, and Hx of + Hep C Test. Pt reports that she feels "okay" today, has good appetite, and slept well. Drug of choice is IV Heroin, last used 08/14/18; denies using any other illicit substance. Denies ZAMBRANO , Fever, Chills, Cough, Chest Pain, SOB, N/V, Abdominal Pain, Dysuria, Diarrhea/ Constipation, Vaginal Bleeding, Edema, Rash, Jaundice, Withdrawal Sx, Hallucinations, or Delirium Sx. Pt asked about increasing Methadone dosage citing cravings and leaving AMA, I explained gravity of pts condition, and likely complications should she leave, to her at length to which she became tearful and stated "I don't want to ". Endorses dyspareunia onset 1 month ago, amenorrhea onset 6 months ago, pelvic discomfort, and clear/white vaginal discharge onset 1-2 weeks ago last noticed on 08/15/18. Hx of high risk sexual behavior, multiple partners, and denies hx of STI but has never been tested. Reports receiving Depot shot well over a year ago, has not had obgyn f/u or pap smear in well over a year but states "I think my last one was normal". Nursing report states that she slept well and is behaving but refused Lovenox. Per pt, she refused Lovenox because "I don't know why I need it, the nurse said it's just protocol." I explained risk/benefits of Lovenox to pt and that she is high risk for DVT/PE given current health state. She agreed to start Lovenox treatment. Patient seen and examined. She is wiling to stay in the Hospital to complete treatment. Physical Exam Vital signs: Vital Signs 08/16/18 16:00 08/16/18 17:53 08/16/18 20:00 Temperature 98 F 98.2 F Pulse Rate 82 84 82 Respiratory Rate 18 20 Blood Pressure 108/68 100/61 Pulse Oximetry 100 99 08/17/18 00:00 08/17/18 00:19 08/17/18 04:00 Temperature 97.8 F 97.9 F Pulse Rate 72 66 Respiratory Rate 20 16 20 Blood Pressure 108/68 113/55 L Pulse Oximetry 97 98 08/17/18 08:00 08/17/18 12:00 Temperature 97.6 F 98.7 F Pulse Rate 55 L 89 Respiratory Rate 18 22 Blood Pressure 142/65 H 101/69 Pulse Oximetry 98 98 Intake & Output 08/16/18 08/17/18 08/17/18 18:59 06:59 18:59 Intake Total 3590 / 3590 Balance 3590 / 3590 Weight 59.1 kg Intake: IV 1450 / 1450 NS Inj 1,000 ML @ 100 mls/hr IV 1350 / 1350 .CONT .Q10H [facility] Rx#:[id number] Cubicin Inj 500 MG In NS Inj 100 / 100 100 ML @ 200 mls/hr IV.SIG Q24H [facility] Rx#:[id number] Oral 0 / 0 Other: # Voids 7 2 Date of Last Bowel Movement 08/15/18 08/15/18 # Bowel Movements 2 Narrative: Gen: lying in bed, dressed in hospital gown, NAD, alert, oriented x4, Nurse at bedside throughout exam HEENT: Head - normocephalic, atraumatic; Eyes - nonicteric, noninjected, no conjunctival pallor, EOMI Cardio: Regular Rate, 3/6 Systolic Murmur best appreciated over LSB, Radial Pulses Intact +2 bilaterally, Post Tibial and Dorsalis Pedis Intact +2 Bilaterally, Extremities warm to touch, No edema, No JVD noted Lungs: Clear to auscultation anteriorly/posteriorly bilaterally GI: +BS all 4 quadrants, Hyperresonant to Percussion, No Guarding or Rebound Tenderness on palpation, No organomegaly appreciated Skin: Multiple Scars indicative of past IV drug use found at multiple sites, No rash or jaundice noted Psych: Mood "Worried", Mood Congruent/Appropriate Affect, Fair Insight/Judgment , Poor Reliability; Denies a/v/t hallucinations, confusion, delirium sx, anxiety , depression, or SI/HI Results - Labs CBC & Chem 7: 08/16/18 07:07 08/15/18 07:25 Microbiology 08/15/18 07:30 Blood - Peripheral Aerobic Blood Culture - Preliminary No growth in 2 days 08/15/18 07:30 Blood - Peripheral Anaerobic Blood Culture - Preliminary No growth in 2 days 08/15/18 07:25 Blood - Peripheral Aerobic Blood Culture - Preliminary No growth in 2 days 08/15/18 07:25 Blood - Peripheral Anaerobic Blood Culture - Preliminary No growth in 2 days Assessment and Plan - Plan 28 Y/O female with 1) MRSA Endocarditis of Tricuspid Valve and Pulmonary Septic Emboli. Patient left the hospital multiple times AMA. She returned and states she will stay for treatment. * Evidence of 3/6 Systolic Murmur LSB, Echo shows Mild Tricuspid Regurgitation secondary to Nonseptal Leaflet Vegetations * Continue IV Daptomycin as ordered per ID * End date September 11 Patient was extensively counseled to adhere with the treatment plan and not leave AMA. She agreed to stay and complete treatment. 2) IV Drug Abuse * per pt, drug of choice is IV Heroin * Continue Methadone 10mg BID * Patient was advised that we will not escalate her pain medications. No indications for any IV pain medications. She plans to go to the Methadone clinic when discharged. 3) DVT Prophylaxis * Continue Lovenox as ordered - pt agreed to treatment after I reviewed risk/ benefits and clinical indication for therapy 4) Dyspareunia and Vaginal Discharge - - Vaginal discharge resolved. Possible that she had an STDs but she has been on broad spectrum antibiotics. No further workup at this point unless symptoms returns. - HIV testing discussed with patient. 5) Amenorrhea - possibly due to hormonal abnormality vs opioid induced endocrinopathy/hypogonadism * per pt, hx of irregular menstrual cycles her entire life, LMP was over 6 months ago * Advised outpatient follow up. The exam, history, and the medical decision-making described in the above note were completed with the assistance of the medical student Saira Bowen. I reviewed and agree with the findings presented. I attest that I had a face-to- face encounter with the patient on the same day, and personally performed and documented my assessment and findings in the above note.
[2018-08-17] MEDS: DAPTOmycin Inj 500 MG in Sodium Chlor 0.9% Inj 100 ML IV.SIG SCH (16:13)
[2018-08-18] MEDS: Methadone 10 MG Tablet PO SCH ×2 (09:07→20:40)
[2018-08-18] MEDS: Enoxaparin Inj 40 MG/0.4 ML Syringe SQ SCH (09:08)
[2018-08-18] MEDS: Senna/Docusate Sodium 8.6/50 MG Tablet PO SCH (09:08)
--- NOTE | 2018-08-18 13:30 | P.PNIM ---
Subjective Interval history: Pt lying in bed dressed in shirt/pants, NAD, MANAGER REPORTING Crystal at bedside throughout exam. She reports no new symptoms or change in status from yesterday. Sleeping and Eating well. Appears to be tolerating medication well. Denies Fever, ZAMBRANO, Chest Pain, Palpitations, SOB, N/V, Abdominal Pain, Diarrhea/Constipation, Dysuria, Pelvic/Suprapubic Pain, Vaginal Discharge, Vaginal Bleeding, Rash, Jaundice, Depression/Anxiety, Opioid Withdrawal Sx, or Delirium Sx at this time. Last BM was Yesterday afternoon, pt asking if she should ask for stool softeners. Physical Exam Vital signs: Vital Signs 08/17/18 16:00 08/17/18 20:00 08/18/18 00:00 Temperature 98.0 F 98.0 F 98.4 F Pulse Rate 82 72 64 Respiratory Rate 20 18 18 Blood Pressure 108/62 110/62 103/67 Pulse Oximetry 98 98 99 08/18/18 04:00 08/18/18 08:00 08/18/18 12:00 Temperature 98.3 F 97.7 F 98.4 F Pulse Rate 78 60 93 H Respiratory Rate 18 18 20 Blood Pressure 110/66 102/58 L 108/69 Pulse Oximetry 100 98 99 Intake & Output 08/17/18 08/18/18 08/18/18 18:59 06:59 18:59 Intake Total 100 / 100 Balance 100 / 100 Weight 56.6 kg Intake: IV 100 / 100 Cubicin Inj 500 MG In NS Inj 100 / 100 100 ML @ 200 mls/hr IV.SIG Q24H [facility] Rx#:[id number] Other: # Voids 3 Date of Last Bowel Movement 08/15/18 08/15/18 Narrative: Gen: lying in bed, dressed in shirt/pants, NAD, alert, oriented x4, MANAGER REPORTING Crystal at bedside throughout exam HEENT: Head - normocephalic, atraumatic; Eyes - nonicteric, noninjected, no conjunctival pallor Cardio: Regular Rate, 3/6 Systolic Murmur best appreciated over LSB, Post Tibial and Dorsalis Pedis Intact +2 Bilaterally, Extremities warm to touch, No edema, No JVD noted Lungs: Clear to auscultation anteriorly/posteriorly bilaterally GI: +BS all 4 quadrants, Hyperresonant to Percussion, No Guarding or Rebound Tenderness on palpation, No organomegaly appreciated Skin: Multiple Scars indicative of past IV drug use found at multiple sites, No rash or jaundice noted Psych: Mood "okay", Mood Congruent/Appropriate Affect, Fair Insight/Judgment, Poor Reliability; Denies a/v/t hallucinations, confusion, delirium sx, anxiety, depression, or SI/HI Results - Labs CBC & Chem 7: 08/16/18 07:07 08/15/18 07:25 Laboratory Results - last 24 hr 08/17/18 17:00 HIV 1&2 Ab/P24 Ag 4thGn Nonreactive Microbiology 08/15/18 07:30 Blood - Peripheral Aerobic Blood Culture - Preliminary No growth in 3 days 08/15/18 07:30 Blood - Peripheral Anaerobic Blood Culture - Preliminary No growth in 3 days 08/15/18 07:25 Blood - Peripheral Aerobic Blood Culture - Preliminary No growth in 3 days 08/15/18 07:25 Blood - Peripheral Anaerobic Blood Culture - Preliminary No growth in 3 days Assessment and Plan - Plan 28yo Female being treated for MRSA Endocarditis of Tricuspid Valve in context of IV Drug Use, Hep C, and long hx of noncompliance. 1) MRSA Endocarditis of Tricuspid Valve and Pulmonary Septic Emboli * Evidence of 3/6 Systolic Murmur LSB, Echo shows Mild Tricuspid Regurgitation secondary to Nonseptal Leaflet Vegetations * Continue IV Daptomycin as ordered * Monitor for worsening of sx or Daptomycin Side effects (rash, anaphylaxis, hypotension, pneumonia, myopathy) 2) IV Drug Abuse * per pt, drug of choice is IV Heroin - spends $60-80/day on heroin * Continue Methadone 10mg BID * Monitor for withdrawal sx - dilated pupils, tachycardia, abdominal cramps, n/v , diarrhea, anxiety, restlessness 3) DVT Prophylaxis * Continue Lovenox as ordered 4) Constipation - most likely due to poor nutrition and po intake or hx of opioid abuse * reported by pt, last BM was yesterday afternoon, no abdominal pain or n/v at this time, normoactive BS all 4 quadrants * If no BM in next 24hrs or abdominal pain, n/v - Start Stool Softener (Senokot ) prn * No intervention indicated at this time given BM w/in last 24hrs and absence of other sx, will continue to follow 5) Dyspareunia and Vaginal Discharge - Improving, most likely cervicitis given high risk hx, noncompliance, and presentation * Pt denies any discharge since admission, may have resolved with IV ABx; Negative Urinalysis in ED * Nonreactive HIV 1/2 * DDx: vaginitis, vaginosis, vulvovaginitis, STI, vaginismus, endometriosis, pelvic inflammatory disease, structural damage s/p child * If sx worsen or do not improve, will consult OBGYN for STI Workup and Pap smear 6) Amenorrhea - possibly due to hormonal abnormality vs opioid induced endocrinopathy/hypogonadism vs adverse effect of prior control vs malnutrition * per pt, hx of irregular menstrual cycles her entire life, LMP was over 6 months ago * per pt, received depot injection well over 1yr ago but does not recall date, but has had no control since then * Labs: Consider GnRH, LH, FSH, Estrogen/Estradiol, TSH w/ reflex T4 * Consider OBGYN consult - Attending Attestation The exam, history, and the medical decision-making described in the above note were completed with the assistance of the medical student Saira Bowen. I reviewed and agree with the findings presented. I attest that I had a face-to- face encounter with the patient on the same day, and personally performed and documented my assessment and findings in the above note. Patient seen and examined. She states she is feeling well. Supportive counseling provided. She is advised to seek out family to build up support for when she leaves the hospital.
[2018-08-18] MEDS: DAPTOmycin Inj 500 MG in Sodium Chlor 0.9% Inj 100 ML IV.SIG SCH (17:15)
[2018-08-19] MEDS: Enoxaparin Inj 40 MG/0.4 ML Syringe SQ SCH (08:55)
[2018-08-19] MEDS: Methadone 10 MG Tablet PO SCH ×2 (08:55→21:18)
[2018-08-19] MEDS: Senna/Docusate Sodium 8.6/50 MG Tablet PO SCH (08:56)
--- NOTE | 2018-08-19 15:58 | P.PNIM ---
Subjective Interval history: Patient reports she is feeling ok today. No new issues. Physical Exam Vital signs: Vital Signs 08/18/18 16:00 08/18/18 20:00 08/19/18 00:00 Temperature 98.3 F 98.7 F 98.4 F Pulse Rate 72 75 80 Respiratory Rate 18 18 18 Blood Pressure 103/59 L 105/69 108/60 Pulse Oximetry 98 98 96 08/19/18 04:00 08/19/18 08:00 08/19/18 09:00 Temperature 98.2 F 97.6 F Pulse Rate 64 85 68 Respiratory Rate 18 18 Blood Pressure 101/62 98/57 L Pulse Oximetry 95 98 08/19/18 12:00 Temperature 98.3 F Pulse Rate 92 H Respiratory Rate 20 Blood Pressure 108/63 Pulse Oximetry 98 Intake & Output 08/18/18 08/19/18 08/19/18 18:59 06:59 18:59 Intake Total 800 / 800 Balance 800 / 800 Intake: IV 100 / 100 Cubicin Inj 500 MG In NS Inj 100 / 100 100 ML @ 200 mls/hr IV.SIG Q24H [facility] Rx#:[id number] Oral 700 / 700 Other: # Voids 4 Date of Last Bowel Movement 08/15/18 08/18/18 08/19/18 # Bowel Movements 1 Narrative: GENERAL: No acute distress CARDIOVASCULAR: Normal Rate, 3/6 Systolic Murmur best appreciated over LSB RESPIRATORY: Breath sounds equal bilaterally. No accessory muscle use. Results - Labs CBC & Chem 7: 08/16/18 07:07 08/15/18 07:25 Microbiology 08/15/18 07:30 Blood - Peripheral Aerobic Blood Culture - Preliminary No growth in 4 days 08/15/18 07:30 Blood - Peripheral Anaerobic Blood Culture - Preliminary No growth in 4 days 08/15/18 07:25 Blood - Peripheral Aerobic Blood Culture - Preliminary No growth in 4 days 08/15/18 07:25 Blood - Peripheral Anaerobic Blood Culture - Preliminary No growth in 4 days Assessment and Plan - Plan 28 Y/O female with 1) MRSA Endocarditis of Tricuspid Valve and Pulmonary Septic Emboli. Patient left the hospital multiple times AMA. She returned and states she will stay for treatment. * Continue IV Daptomycin as ordered per ID * End date September 11 Patient was extensively counseled to adhere with the treatment plan and not leave AMA. She agreed to stay and complete treatment. 2) IV Drug Abuse per pt, drug of choice is IV Heroin Continue Methadone 10mg BID Patient was advised that we will not escalate her pain medications and we will not prescribe Methadone on discharge. No indications for any IV pain medications. She plans to go to the Methadone clinic when discharged. 3) DVT Prophylaxis Continue Lovenox as ordered - pt agreed to treatment after I reviewed risk/ benefits and clinical indication for therapy 4) Dyspareunia and Vaginal Discharge - - Vaginal discharge resolved. Possible that she had an STDs but she has been on broad spectrum antibiotics. No further workup at this point unless symptoms returns. - HIV testing discussed with patient. 5) Amenorrhea - possibly due to hormonal abnormality vs opioid induced endocrinopathy/hypogonadism per pt, hx of irregular menstrual cycles her entire life, LMP was over 6 months ago. test neg. Advised outpatient follow up.
[2018-08-19] MEDS: DAPTOmycin Inj 500 MG in Sodium Chlor 0.9% Inj 100 ML IV.SIG SCH (17:45)
[2018-08-20] MEDS: Senna/Docusate Sodium 8.6/50 MG Tablet PO SCH (08:13)
[2018-08-20] MEDS: Enoxaparin Inj 40 MG/0.4 ML Syringe SQ SCH (08:15)
[2018-08-20] MEDS: Methadone 10 MG Tablet PO SCH ×2 (08:15→20:51)
--- NOTE | 2018-08-20 14:06 | P.PNIM ---
Subjective Interval history: Pt found sitting upright in bed, dressed in hospital gown, NAD, alert, oriented x4, cooperative, Physical Therapist Estefany at bedside throughout exam. Pt reports that she is feeling well overall but has a productive cough with clear mucus with black streaks. She showed me her sputum that she had just coughed up and I confirm pt's report. Endorses Sore Throat onset last night w/o dysphagia. Denies Fever, ZAMBRANO, Chills/Night Sweats, Sinus Congestion, Ear Pain, Dysphagia, Hemoptysis, Chest Pain, SOB, N/V, Abdominal Pain, Diarrhea/Constipation, Dysuria , Vaginal Discharge/Bleeding, Edema, Rash, or Withdrawal Sx. Describes mood as "good", good appetite, no worries or concerns at this time. Physical Exam Vital signs: Vital Signs 08/19/18 16:00 08/19/18 20:00 08/19/18 20:30 Temperature 98.2 F 99.0 F Pulse Rate 89 90 79 Respiratory Rate 18 18 Blood Pressure 109/68 97/62 L Pulse Oximetry 97 99 08/20/18 00:00 08/20/18 04:00 08/20/18 04:41 Temperature 97.8 F 97.4 F L Pulse Rate 87 80 Respiratory Rate 18 18 18 Blood Pressure 105/58 L 95/50 L Pulse Oximetry 99 99 08/20/18 08:00 08/20/18 09:00 08/20/18 12:00 Temperature 97.9 F 98.0 F Pulse Rate 86 64 88 Respiratory Rate 20 20 Blood Pressure 97/60 L 99/63 L Pulse Oximetry 99 100 Intake & Output 08/19/18 08/20/18 08/20/18 18:59 06:59 18:59 Intake Total 600 / 600 Balance 600 / 600 Weight 56.8 kg Intake: IV 100 / 100 Cubicin Inj 500 MG In NS Inj 100 / 100 100 ML @ 200 mls/hr IV.SIG Q24H [facility] Rx#:[id number] Oral 500 / 500 Other: Post Void Residual 2 # Voids 2 1 Date of Last Bowel Movement 08/19/18 08/19/18 08/20/18 # Bowel Movements 2 Narrative: GEN: Sitting upright in bed, dressed in hospital gown, NAD, cooperative, pleasant, Physical Therapist Estefany at bedside throughout exam HEENT: Head - Normocephalic, Atraumatic; Eyes - Noninjected, No conjunctival pallor, Nonicteric; Nose - Nares Patent; Throat - oropharynx clear, no oral plaques/lesions noted, posterior oropharynx is nonerythematous, no exudates, no tonsillar swelling/erythema/exudate, Poor Dentition CARDIO: Normal Rate, 3/6 Systolic Murmur best appreciated over LSB Lungs: Clear to Auscultation anteriorly/posteriorly bilaterally, No rales/ rhonchi/wheezes/crackles appreciated, Clear Mucus w/ Black Streaks MSK: No edema Skin: No rash, jaundice, petechiae, or purpura noted Results - Labs CBC & Chem 7: 08/16/18 07:07 08/15/18 07:25 Microbiology 08/15/18 07:30 Blood - Peripheral Aerobic Blood Culture - Final No growth in 5 days 08/15/18 07:30 Blood - Peripheral Anaerobic Blood Culture - Final No growth in 5 days 08/15/18 07:25 Blood - Peripheral Aerobic Blood Culture - Final No growth in 5 days 08/15/18 07:25 Blood - Peripheral Anaerobic Blood Culture - Final No growth in 5 days Assessment and Plan - Plan 28yo Female being treated for MRSA Endocarditis of Tricuspid Valve in context of IV Drug Use, Hep C, and long hx of noncompliance. 1) MRSA Endocarditis of Tricuspid Valve and Pulmonary Septic Emboli * Evidence of 3/6 Systolic Murmur LSB, Echo shows Mild Tricuspid Regurgitation secondary to Nonseptal Leaflet Vegetations * Most recent blood cultures failed to grow any organisms in past 4 days * Continue IV Daptomycin as ordered * Monitor for worsening of sx or Daptomycin Side effects (rash, anaphylaxis, hypotension, pneumonia, myopathy) 2) IV Drug Abuse * per pt, drug of choice is IV Heroin - spends $60-80/day on heroin * Nonreactive HIV 1/2 on 08/17/18 * Continue Methadone 10mg BID * Monitor for withdrawal sx - dilated pupils, tachycardia, abdominal cramps, n/v , diarrhea, anxiety, restlessness 3) DVT Prophylaxis * Continue Lovenox as ordered 4) Constipation - IMPROVED, most likely due to poor nutrition and po intake or hx of opioid abuse * reported by pt, last BM was this morning, no abdominal pain or n/v at this time * If sx return, Start Stool Softener (Senokot) prn * No intervention indicated at this time given BM w/in last 24hrs and absence of other sx, will continue to follow 5) Productive Cough and Sore Throat - most likely secondary to hx of cigarette smoking * onset < 12hrs ago, Clear Chest Xray and CT w/ Contrast on 08/15/18 * No imaging or intervention indicated at this time given hx, presentation, and lack of systemic sx * Will continue to follow - Attending Attestation The exam, history, and the medical decision-making described in the above note were completed with the assistance of the the medical student Saira Bowen. I reviewed and agree with the findings presented. I attest that I had a face-to- face encounter with the patient on the same day, and personally performed and documented my assessment and findings in the medical record above. Continue antibiotics and supportive care. Feeling much better overall.
[2018-08-20] MEDS: DAPTOmycin Inj 500 MG in Sodium Chlor 0.9% Inj 100 ML IV.SIG SCH (16:30)
[2018-08-21] MEDS: Methadone 10 MG Tablet PO SCH ×2 (09:20→21:17)
[2018-08-21] MEDS: Enoxaparin Inj 40 MG/0.4 ML Syringe SQ SCH (09:21)
[2018-08-21] MEDS: Senna/Docusate Sodium 8.6/50 MG Tablet PO SCH (09:21)
[2018-08-21] MEDS: DAPTOmycin Inj 500 MG in Sodium Chlor 0.9% Inj 100 ML IV.SIG SCH (17:36)
--- NOTE | 2018-08-21 17:50 | P.PNIM ---
Subjective Interval history: Patient reports that she is feeling okay today. She inquired about doing outpatient IV antibiotics. She states she would be willing to come to the hospital daily. Physical Exam Vital signs: Vital Signs 08/20/18 20:00 08/20/18 20:15 08/20/18 23:08 Temperature 98.4 F Pulse Rate 86 87 Respiratory Rate 17 17 Blood Pressure 99/62 L Pulse Oximetry 98 08/21/18 00:00 08/21/18 04:00 08/21/18 04:56 Temperature 97.8 F 97.8 F Pulse Rate 83 71 74 Respiratory Rate 19 20 Blood Pressure 101/55 L 100/52 L Pulse Oximetry 95 98 08/21/18 08:00 Temperature 98.0 F Pulse Rate 93 H Respiratory Rate 20 Blood Pressure 108/66 Pulse Oximetry 100 Intake & Output 08/20/18 08/21/18 08/21/18 18:59 06:59 18:59 Intake Total 2099 63 63 Balance 2099 63 Weight 57.4 kg Intake: IV 100 / 100 Cubicin Inj 500 MG In NS Inj 100 / 100 100 ML @ 200 mls/hr IV.SIG Q24H [facility] Rx#:[id number] Oral 1999 63 63 Other: # Voids 2 2 Date of Last Bowel Movement 08/20/18 08/20/18 08/21/18 # Bowel Movements 1 1 Narrative: GENERAL: This is a well-nourished, well-developed patient, in no apparent distress. CARDIOVASCULAR: Normal rate and regular rhythm. 3 out of 6 MARYELLEN RESPIRATORY: Good respiratory efforts. Breath sounds equal and clear to auscultation bilaterally. GASTROINTESTINAL: Abdomen soft, non-tender, non-distended. Normal active bowel sounds MUSCULOSKELETAL: Extremities without cyanosis, or edema. NEURO: Alert & Oriented x4 to person, place, time, situation. Moves all ext x4 PSYCH: Appropriate mood and affect. Results - Labs CBC & Chem 7: 08/16/18 07:07 08/15/18 07:25 Laboratory Results - last 24 hr 08/21/18 10:50 POC Glucose 107 Assessment and Plan - Plan 28 Y/O female with MRSA Endocarditis of Tricuspid Valve and Pulmonary Septic Emboli. Patient left the hospital multiple times AMA. She returned and states she will stay for treatment. Continue IV Daptomycin as ordered per ID End date September 11 Patient was extensively counseled to adhere with the treatment plan and not leave AMA. She agreed to stay and complete treatment. She inquired about outpatient IV antibiotics. I advised her to continue treatment here for now. May be after a couple of weeks of IV antibiotics here this could be a consideration. IV Drug Abuse per pt, drug of choice is IV Heroin Continue Methadone 10mg BID Patient was advised that we will not escalate her pain medications and we will not prescribe Methadone on discharge. No indications for any IV pain medications. She plans to go to the Methadone clinic when discharged. Dyspareunia and Vaginal Discharge - - Vaginal discharge resolved. Possible that she had an STDs but she has been on broad spectrum antibiotics. No further workup at this point unless symptoms returns. - HIV negative. DVT Prophylaxis Continue Lovenox
[2018-08-22] MEDS: Senna/Docusate Sodium 8.6/50 MG Tablet PO SCH (10:00)
[2018-08-22] MEDS: Methadone 10 MG Tablet PO SCH ×2 (10:00→22:12)
[2018-08-22] MEDS: Enoxaparin Inj 40 MG/0.4 ML Syringe SQ SCH (10:00)
[2018-08-22] MEDS: DAPTOmycin Inj 500 MG in Sodium Chlor 0.9% Inj 100 ML IV.SIG SCH (16:50)
--- NOTE | 2018-08-22 17:42 | P.PNIM ---
Subjective Interval history: Patient reports she is feeling ok today. No new complaints. Physical Exam Vital signs: Vital Signs 08/21/18 20:00 08/21/18 21:00 08/22/18 00:00 Temperature 98.9 F 98.4 F Pulse Rate 76 76 81 Respiratory Rate 18 18 Blood Pressure 108/57 L 91/52 L Pulse Oximetry 100 99 08/22/18 04:00 08/22/18 04:13 08/22/18 08:00 Temperature 97.4 F L 97.7 F Pulse Rate 66 66 64 Respiratory Rate 18 20 Blood Pressure 97/60 L 87/61 L Pulse Oximetry 98 99 08/22/18 09:55 08/22/18 12:00 08/22/18 16:00 Temperature 98.0 F 98.2 F Pulse Rate 90 76 Respiratory Rate 20 20 Blood Pressure 105/60 195/58 H 109/57 L Pulse Oximetry 99 100 Intake & Output 08/21/18 08/22/18 08/22/18 18:59 06:59 18:59 Intake Total 1540 / 1540 663 / 663 720 / 720 Output Total 8 Balance 1540 / 1540 663 / 663 712 / 712 Weight 57.8 kg Intake: IV 100 / 100 Cubicin Inj 500 MG In NS Inj 100 / 100 100 ML @ 200 mls/hr IV.SIG Q24H [facility] Rx#:[id number] Oral 1440 / 1440 663 / 663 720 / 720 Output: Urine Stool Other: # Voids 6 3 Date of Last Bowel Movement 08/21/18 08/21/18 08/22/18 # Bowel Movements 1 1 Narrative: GENERAL: This is a well-nourished, well-developed patient, in no apparent distress. CARDIOVASCULAR: Normal rate and regular rhythm. 3 out of 6 MARYELLEN RESPIRATORY: Good respiratory efforts. Breath sounds equal and clear to auscultation bilaterally. GASTROINTESTINAL: Abdomen soft, non-tender, non-distended. Normal active bowel sounds MUSCULOSKELETAL: Extremities without cyanosis, or edema. NEURO: Alert & Oriented x4 to person, place, time, situation. Moves all ext x4 PSYCH: Appropriate mood and affect. Results - Labs CBC & Chem 7: 08/16/18 07:07 08/15/18 07:25 Assessment and Plan - Plan 28 Y/O female with MRSA Endocarditis of Tricuspid Valve and Pulmonary Septic Emboli. Patient left the hospital multiple times AMA. She returned and states she will stay for treatment. Continue IV Daptomycin as ordered per ID End date September 11 Patient was extensively counseled to adhere with the treatment plan and not leave AMA. She agreed to stay and complete treatment. She has been doing well so far. She inquired about outpatient IV antibiotics. I advised her to continue treatment here for now. Maybe after a couple of weeks of IV antibiotics here this could be a consideration. IV Drug Abuse per pt, drug of choice is IV Heroin Continue Methadone 10mg BID Patient was advised that we will not escalate her pain medications and we will not prescribe Methadone on discharge. No indications for any IV pain medications. She plans to go to the Methadone clinic when discharged. Dyspareunia and Vaginal Discharge - - Vaginal discharge resolved. Possible that she had an STDs but she has been on broad spectrum antibiotics. No further workup at this point unless symptoms returns. - HIV negative. DVT Prophylaxis Continue Lovenox
[2018-08-23] MEDS: Methadone 10 MG Tablet PO SCH ×2 (09:04→20:32)
[2018-08-23] MEDS: Enoxaparin Inj 40 MG/0.4 ML Syringe SQ SCH (09:04)
[2018-08-23] MEDS: Senna/Docusate Sodium 8.6/50 MG Tablet PO SCH (09:04)
[2018-08-23] MEDS: DAPTOmycin Inj 500 MG in Sodium Chlor 0.9% Inj 100 ML IV.SIG SCH (17:31)
--- NOTE | 2018-08-23 19:05 | P.PNIM ---
Subjective Interval history: Patient seen and examined with nurse present. Patient says she is overall feeling all right. She does report sore throat and runny nose for the past 2 days, cough productive of yellow sputum. She says her sore throat appears to be getting better however. Physical Exam Vital signs: Vital Signs 08/22/18 20:00 08/23/18 00:00 08/23/18 04:00 Temperature 98.7 F 98.5 F 99.4 F Pulse Rate 84 76 76 Respiratory Rate 17 19 17 Blood Pressure 105/64 101/56 L 101/57 L Pulse Oximetry 100 97 96 08/23/18 08:00 08/23/18 09:00 08/23/18 12:00 Temperature 98.2 F 98 F Pulse Rate 88 68 87 Respiratory Rate 20 20 Blood Pressure 93/52 L 95/55 L Pulse Oximetry 98 98 08/23/18 16:00 Temperature 99 F Pulse Rate 85 Respiratory Rate 20 Blood Pressure 90/53 L Pulse Oximetry 98 Intake & Output 08/22/18 08/23/18 08/23/18 18:59 06:59 18:59 Intake Total 820 / 820 100 / 100 Output Total 8 / 8 Balance 812 / 812 100 / 100 Weight 57.9 kg Intake: IV 100 / 100 100 / 100 Cubicin Inj 500 MG In NS Inj 100 / 100 100 / 100 100 ML @ 200 mls/hr IV.SIG Q24H [facility] Rx#:[id number] Oral 720 / 720 Output: Urine 7 / 7 Stool 1 / Other: # Voids 3 3 Date of Last Bowel Movement 08/22/18 08/22/18 # Bowel Movements 2 Narrative: GENERAL: Patient sitting up in bed. Appears comfortable. SKIN: Warm and dry. HEAD: Normocephalic. No sinus tenderness. Mucous membranes moist. No oropharyngeal erythema. EYES: No scleral icterus. No injection or drainage. NECK: Supple, trachea midline. No JVD or lymphadenopathy. CARDIOVASCULAR: Regular rate, rhythm. 2 out of 6 systolic ejection murmur. RESPIRATORY: Breath sounds equal bilaterally. No accessory muscle use. GASTROINTESTINAL: Abdomen soft, non-tender, nondistended. MUSCULOSKELETAL: No cyanosis, or edema. BACK: Nontender without obvious deformity. No CVA tenderness. GENERAL: This is a well-nourished, well-developed patient, in no apparent distress. CARDIOVASCULAR: Normal rate and regular rhythm. 3 out of 6 MARYELLEN RESPIRATORY: Good respiratory efforts. Breath sounds equal and clear to auscultation bilaterally. GASTROINTESTINAL: Abdomen soft, non-tender, non-distended. Normal active bowel sounds MUSCULOSKELETAL: Extremities without cyanosis, or edema. NEURO: Alert & Oriented x4 to person, place, time, situation. Moves all ext x4 PSYCH: Appropriate mood and affect. Results - Labs CBC & Chem 7: 08/16/18 07:07 08/15/18 07:25 Assessment and Plan - Plan 28 Y/O female with MRSA Endocarditis of Tricuspid Valve and Pulmonary Septic Emboli. Patient left the hospital multiple times AMA. She returned and states she will stay for treatment. Continue IV Daptomycin as ordered per ID End date September 11 Patient was extensively counseled to adhere with the treatment plan and not leave AMA. She agreed to stay and complete treatment. She has been doing well so far. She inquired about outpatient IV antibiotics. I advised her to continue treatment here for now. Maybe after a couple of weeks of IV antibiotics here this could be a consideration. = Continue IV antibiotics as per infectious disease. Rhinitis, sore throat. Suspect Common cold. Lungs clear on exam. Patient reports this appears to be improving. Will monitor. IV Drug Abuse per pt, drug of choice is IV Heroin Continue Methadone 10mg BID Patient was advised that we will not escalate her pain medications and we will not prescribe Methadone on discharge. No indications for any IV pain medications. She plans to go to the Methadone clinic when discharged. Dyspareunia and Vaginal Discharge - - Vaginal discharge resolved. Possible that she had an STDs but she has been on broad spectrum antibiotics. No further workup at this point unless symptoms returns. - HIV negative. DVT Prophylaxis Continue Lovenox Discussed Condition With: Patient, nurse, employment case manager at [employer] Discharge Planning: Continue on IV antibiotics as per infectious disease. We will need ID clearance
[2018-08-24] MEDS: Senna/Docusate Sodium 8.6/50 MG Tablet PO SCH (11:27)
[2018-08-24] MEDS: Methadone 10 MG Tablet PO SCH ×2 (11:27→23:03)
[2018-08-24] MEDS: Enoxaparin Inj 40 MG/0.4 ML Syringe SQ SCH (11:28)
--- NOTE | 2018-08-24 15:56 | P.PN ---
Subjective Interval history: Patient seen and examined, awake, alert oriented x3. No fever. Denies any diarrhea, no nausea, no vomiting. Indicates she is sleeping fairly well, tolerating diet well. Has no complaints. Patient remains compliant with treatment, indicates that she is seeking for rehab facilities when she is discharged. Physical Exam Vital signs: Vital Signs 08/23/18 16:00 08/23/18 20:00 08/23/18 20:49 Temperature 99 F 98.8 F Pulse Rate 85 94 H Respiratory Rate 20 18 Blood Pressure 90/53 L 113/65 Pulse Oximetry 98 99 08/24/18 00:00 08/24/18 04:00 08/24/18 08:00 Temperature 98.8 F 98.7 F 98 F Pulse Rate 68 71 83 Respiratory Rate 18 18 20 Blood Pressure 101/59 L 95/50 L 121/62 Pulse Oximetry 97 96 95 08/24/18 12:00 Temperature 98.5 F Pulse Rate 82 Respiratory Rate 20 Blood Pressure 101/62 Pulse Oximetry 100 Intake & Output 08/23/18 08/24/18 08/24/18 18:59 06:59 18:59 Intake Total 100 / 100 Output Total 2 / 2 Balance 100 / 100 -2 / -2 Weight 59.1 kg Intake: IV 100 / 100 Cubicin Inj 500 MG In NS Inj 100 / 100 100 ML @ 200 mls/hr IV.SIG Q24H [facility] Rx#:[id number] Output: Urine 2 / 2 Other: # Voids 2 Date of Last Bowel Movement 08/22/18 08/22/18 Narrative: GENERAL: 28-year-old well-developed well-nourished female, no apparent distress. SKIN: Warm and dry. HEAD: Normocephalic. No sinus tenderness. Mucous membranes moist. No oropharyngeal erythema. EYES: No scleral icterus. No injection or drainage. NECK: Supple, trachea midline. No JVD or lymphadenopathy. CARDIOVASCULAR: Regular rate, rhythm. 1 out of 6 systolic ejection murmur. RESPIRATORY: Breath sounds equal bilaterally. No accessory muscle use. GASTROINTESTINAL: Abdomen soft, non-tender, nondistended. MUSCULOSKELETAL: No cyanosis, or edema. Pedal pulses 2+ bilateral. NEURO: Patient awake, alert oriented x3. No focal deficit Results - Labs CBC & Chem 7: 08/25/18 05:37 08/25/18 05:37 Assessment and Plan - Plan 28 Y/O female with hx of IVDU, noncompliance with treatment. 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 Patient left the hospital multiple times AMA. She returned and states she will stay for treatment. Continue IV Daptomycin as ordered per ID End date September 11 Patient has been extensively counseled to adhere with the treatment plan and not leave AMA. She agreed to stay and complete treatment. She has been doing well so far. Continue IV antibiotics as per infectious disease. Rhinitis, sore throat. Suspect Common cold. Lungs clear on exam. Patient reports this appears to be improving. Will monitor. IV Drug Abuse per pt, drug of choice is IV Heroin Continue Methadone 10mg BID Patient was advised that we will not escalate her pain medications and we will not prescribe Methadone on discharge. No indications for any IV pain medications. She plans to go to the Methadone clinic when discharged. Dyspareunia and Vaginal Discharge - Vaginal discharge resolved. Possible that she had an STDs but she has been on broad spectrum antibiotics. No further workup at this point unless symptoms returns. HIV negative. DVT Prophylaxis Continue Lovenox Will check CBC, BMP, CPK in am Code Status: Full code Discussed Condition With: RN, pt, CM Discharge Planning: Discharge after completing abx,
[2018-08-24] MEDS: DAPTOmycin Inj 500 MG in Sodium Chlor 0.9% Inj 100 ML IV.SIG SCH (17:41)
[2018-08-25 06:08] LABS: Hematocrit 32.2 % (35.0-46.0); Hemoglobin 10.7 gm/dL (11.6-15.3); Mean Corpuscular HGB Conc 33.2 % (32.0-36.0); Mean Corpuscular Hemoglobin 25.4 pg (27.0-34.0); Mean Corpuscular Volume 76.3 fL (80.0-100.0); Mean Platelet Volume 7.5 fL (7.0-11.0); Platelet Count 218 th/mm3 (150-450); Red Blood Count 4.22 mil/mm3 (4.00-5.30); Red Cell Distribution Width 17.8 % (11.6-17.2); White Blood Count 6.9 th/mm3 (4.0-11.0)
[2018-08-25 06:36] LABS: Anion Gap 5 meq/L (5-15); Blood Urea Nitrogen 13 mg/dL (7-18); Calcium 9.4 mg/dL (8.5-10.1); Chloride 102 meq/L (98-107); Glomerular Filtration Rate Greater Than 89 mL/min (>89); Glucose,Random 92 mg/dL (74-106); Potassium 4.1 meq/L (3.5-5.1); Sodium 136 meq/L (136-145)
[2018-08-25 06:41] LABS: Creatine Kinase 24 U/L (26-192)
[2018-08-25] MEDS: Methadone 10 MG Tablet PO SCH ×2 (09:24→21:45)
[2018-08-25] MEDS: Senna/Docusate Sodium 8.6/50 MG Tablet PO SCH (09:24)
[2018-08-25] MEDS: Enoxaparin Inj 40 MG/0.4 ML Syringe SQ SCH (09:24)
--- NOTE | 2018-08-25 15:49 | P.PN ---
Subjective Interval history: Patient seen and examined, awake, alert oriented x3. No fever. Denies any diarrhea, no nausea, no vomiting. At times has night sweats but no fever. Per RN, visitor came by last night and after pt. refused Methadone. No change in mental status observed throughout evening. Physical Exam Vital signs: Vital Signs 08/24/18 16:00 08/24/18 20:00 08/25/18 00:00 Temperature 98.8 F 98.3 F 98.0 F Pulse Rate 83 115 H 85 Respiratory Rate 20 18 18 Blood Pressure 103/64 120/76 96/67 L Pulse Oximetry 99 99 99 08/25/18 04:00 08/25/18 07:59 08/25/18 08:00 Temperature 98.2 F 98.3 F Pulse Rate 64 69 66 Respiratory Rate 18 20 Blood Pressure 99/58 L 100/63 Pulse Oximetry 99 96 08/25/18 12:00 Temperature 97.6 F Pulse Rate 71 Respiratory Rate 20 Blood Pressure 92/56 L Pulse Oximetry 96 Intake & Output 08/24/18 08/25/18 08/25/18 18:59 06:59 18:59 Intake Total 800 / 800 Output Total 6 / 6 Balance 794 / 794 Weight 57.9 kg Intake: IV 100 / 100 Cubicin Inj 500 MG In NS Inj 100 / 100 100 ML @ 200 mls/hr IV.SIG Q24H [facility] Rx#:[id number] Oral 700 / 700 Output: Urine 5 / 5 Stool / Other: # Voids 5 2 Date of Last Bowel Movement 08/24/18 08/23/18 08/23/18 Narrative: GENERAL: 28-year-old well-developed well-nourished female, no apparent distress. SKIN: Warm and dry. HEAD: Normocephalic. No sinus tenderness. Mucous membranes moist. No oropharyngeal erythema. EYES: No scleral icterus. No injection or drainage. NECK: Supple, trachea midline. No JVD or lymphadenopathy. CARDIOVASCULAR: Regular rate, rhythm. 1 out of 6 systolic ejection murmur. RESPIRATORY: Breath sounds equal bilaterally. No accessory muscle use. GASTROINTESTINAL: Abdomen soft, non-tender, nondistended. MUSCULOSKELETAL: No cyanosis, or edema. Pedal pulses 2+ bilateral. NEURO: Patient awake, alert oriented x3. No focal deficit Results - Labs CBC & Chem 7: 08/25/18 05:37 08/25/18 05:37 Laboratory Results - last 24 hr 08/25/18 08/25/18 05:37 05:37 WBC 6.9 RBC 4.22 Hgb 10.7 L Hct 32.2 L MCV 76.3 L MCH 25.4 L MCHC 33.2 RDW 17.8 H Plt Count 218 MPV 7.5 Sodium 136 Potassium 4.1 Chloride 102 Carbon Dioxide 29.0 Anion Gap 5 BUN 13 Creatinine 0.72 Estimated GFR Greater than 89 Random Glucose 92 Calcium 9.4 Total Creatine Kinase 24 L Assessment and Plan - Plan 28 Y/O female with hx of IVDU, noncompliance with treatment. 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 Patient left the hospital multiple times AMA. She returned and states she will stay for treatment. Continue IV Daptomycin as ordered per ID End date September 11 Patient has been extensively counseled to adhere with the treatment plan and not leave AMA. She agreed to stay and complete treatment. She has been doing well so far. Continue IV antibiotics as per infectious disease. Rhinitis, sore throat. Suspect Common cold. Lungs clear on exam. Patient reports this appears to be improving. Will monitor. IV Drug Abuse per pt, drug of choice is IV Heroin Continue Methadone 10mg BID Patient was advised that we will not escalate her pain medications and we will not prescribe Methadone on discharge. No indications for any IV pain medications. She plans to go to the Methadone clinic when discharged. "No visitor" sign to be placed. Dyspareunia and Vaginal Discharge - Vaginal discharge resolved. Possible that she had an STDs but she has been on broad spectrum antibiotics. No further workup at this point unless symptoms returns. HIV negative. DVT Prophylaxis Continue Lovenox Labs reviewed, stable. Code Status: Full code Discussed Condition With: RN, pt., CM Discharge Planning: Discharge after completing abx,
[2018-08-25] MEDS: DAPTOmycin Inj 500 MG in Sodium Chlor 0.9% Inj 100 ML IV.SIG SCH (16:35)
[2018-08-26] MEDS: Senna/Docusate Sodium 8.6/50 MG Tablet PO SCH (08:31)
[2018-08-26] MEDS: Enoxaparin Inj 40 MG/0.4 ML Syringe SQ SCH (08:31)
[2018-08-26] MEDS: Methadone 10 MG Tablet PO SCH ×2 (08:31→22:32)
--- NOTE | 2018-08-26 10:00 | P.PN ---
Subjective Interval history: Patient seen and examined, awake, alert oriented x3. No fever. Denies any diarrhea, no nausea, no vomiting. No acute changes overnight. Asking about methadone clinic, wants to contact them. States she is motivated to remaining drug free. Physical Exam Vital signs: Vital Signs 08/25/18 12:00 08/25/18 16:00 08/25/18 20:00 Temperature 97.6 F 98.1 F Pulse Rate 71 80 91 H Respiratory Rate 20 18 Blood Pressure 92/56 L 100/64 Pulse Oximetry 96 95 08/26/18 00:00 08/26/18 04:00 08/26/18 08:00 Temperature 97.8 F 97.1 F L 97.8 F Pulse Rate 72 69 74 Respiratory Rate 18 18 20 Blood Pressure 94/52 L 92/58 L 102/64 Pulse Oximetry 98 97 98 Intake & Output 08/25/18 08/26/18 08/26/18 18:59 06:59 18:59 Intake Total 100 / 100 Balance 100 / 100 Weight 57.9 kg Intake: IV 100 / 100 Cubicin Inj 500 MG In NS Inj 100 / 100 100 ML @ 200 mls/hr IV.SIG Q24H [facility] Rx#:[id number] Other: # Voids 3 Date of Last Bowel Movement 08/23/18 Narrative: GENERAL: 28-year-old well-developed well-nourished female, no apparent distress. SKIN: Warm and dry. HEAD: Normocephalic. No sinus tenderness. Mucous membranes moist. No oropharyngeal erythema. EYES: No scleral icterus. No injection or drainage. NECK: Supple, trachea midline. No JVD or lymphadenopathy. CARDIOVASCULAR: Regular rate, rhythm. 1 out of 6 systolic ejection murmur. RESPIRATORY: Breath sounds equal bilaterally. No accessory muscle use. GASTROINTESTINAL: Abdomen soft, non-tender, nondistended. MUSCULOSKELETAL: No cyanosis, or edema. Pedal pulses 2+ bilateral. NEURO: Patient awake, alert oriented x3. No focal deficit Results - Labs CBC & Chem 7: 08/25/18 05:37 08/25/18 05:37 Assessment and Plan - Plan 28 Y/O female with hx of IVDU, noncompliance with treatment. Hx of MRSA endocarditis. 08/26/2018-no acute changes overnight, no fever. MRSA Endocarditis of Tricuspid Valve and Pulmonary Septic Emboli. Patient left the hospital multiple times AMA. She returned and states she will stay for treatment. Continue IV Daptomycin as ordered per ID End date September 11 Patient has been extensively counseled to adhere with the treatment plan and not leave AMA. She agreed to stay and complete treatment. She has been doing well so far. Continue IV antibiotics as per infectious disease. Rhinitis, sore throat. Suspect Common cold. Lungs clear on exam. Patient reports this appears to be improving. Will monitor. IV Drug Abuse per pt, drug of choice is IV Heroin Continue Methadone 10mg BID Patient was advised that we will not escalate her pain medications and we will not prescribe Methadone on discharge. No indications for any IV pain medications. She plans to go to the Methadone clinic when discharged. "No visitor" sign to be placed. Dyspareunia and Vaginal Discharge - Vaginal discharge resolved. Possible that she had an STDs but she has been on broad spectrum antibiotics. No further workup at this point unless symptoms returns. HIV negative. DVT Prophylaxis Continue Lovenox Code Status: Full code Discussed Condition With: RN, pt., CM Discharge Planning: Discharge after completing abx,
[2018-08-26] MEDS: DAPTOmycin Inj 500 MG in Sodium Chlor 0.9% Inj 100 ML IV.SIG SCH (17:04)
[2018-08-26 19:01] VITALS: BP 97/55; PULSE 85; RESP 16; TEMP 98; O2SAT 98
== END 2018-08-26 21:40 | disposition left against medical advice (07) ==
LOC: NEPE 06:51 → NEDA 10:04 → N05 14:15
PROVIDERS: ADMIT Family Medicine; ATTEND Family Medicine

== ENCOUNTER 2018-09-09 04:06 | Inpatient (IN) ==
[2018-09-09] MEDS ORDERED: Piperacil/Tazo 4.5 GM Premix 4.5 GM/100 ML BAG IV.SIG STA (04:14)
[2018-09-09] MEDS ORDERED: Acetaminophen 325 MG Tablet PO ONE (04:14)
[2018-09-09] MEDS ORDERED: Vancomycin Inj 1,000 MG in Sodium Chlor 0.9% Inj 250 ML IV.SIG STA (04:14)
[2018-09-09] MEDS ORDERED: Sod Chloride 0.9% Inj 1,000 ML IV.SIG SCH (04:15)
--- NOTE | 2018-09-09 04:22 | ED ---
HPI General Chief complaint: Medical Clearance Stated complaint: poss fever Time Seen by Provider: 09/09/18 04:13 Source: patient Mode of arrival: ambulatory Limitations: no limitations History of Present Illness HPI narrative: 28 y/o female presents with a fever over the past couple of days. She recently signed out against advice from the hospital about a week ago with endocarditis. She states she is now willing to stay in the hospital and get treatment. She denies other concurrent complaints that she can recall at this time. She states before she is left multiple times because she has a lot of stress in her life and her daughter lives in [place]. Patient denies specific modifying factors. Related Data Home Medications Medication Instructions Recorded Confirmed No Known Home Medications 08/02/18 09/09/18 Allergies Allergy/AdvReac Type Severity Reaction Status Date / Time No Known Allergies Allergy Verified 09/09/18 04:36 Review of Systems ROS: all other systems reviewed are negative [facility] Medical History Medical History Endocarditis (Acute) Hepatitis C (Acute) IV drug abuse (Acute) MDRO (multiple drug resistant organisms) resistance (Acute ~07/11/18) Surgical History Surgical History No history of previous surgery (Acute) Family History Family History Other Osteoarthritis Social History Social History Substance History: Active Abuse Second Hand Smoke Exposure: Yes Smoking Status: Current every day smoker Tobacco Type: Cigarettes How Often Do You Have a Drink Containing Alcohol: Never Recent Travel in [facility] within the Last 8 Weeks: No Recent Out of Country Travel within the Last 8 Weeks: No Immunization History Tetanus Immunization Year if Known: 2018 Exam Narrative Exam Narrative: GENERAL: 28 y/o female in no apparent distress SKIN: Focused skin assessment warm/dry. HEAD: Atraumatic. Normocephalic. EYES: Pupils equal and round. No scleral icterus. No injection or drainage. ENT: No nasal bleeding or discharge. Mucous membranes pink and moist. NECK: Trachea midline. No JVD. CARDIOVASCULAR: Regular rate and rhythm. RESPIRATORY: No accessory muscle use. Clear to auscultation. Breath sounds equal bilaterally. GASTROINTESTINAL: Abdomen soft, non-tender, nondistended. MUSCULOSKELETAL: No obvious deformities. No clubbing. No cyanosis. No edema. NEUROLOGICAL: Awake and alert. No obvious cranial nerve deficits. Motor grossly within normal limits. Normal speech. PSYCHIATRIC: Appropriate mood and affect; insight and judgment normal. Course Consultations Consultation #1: dr gomes agrees to admit Initial Documented Vital Signs Temperature 100.7 F H 09/09/18 04:09 Pulse Rate 115 H 09/09/18 04:09 Respiratory Rate 17 09/09/18 04:09 Blood Pressure 129/76 09/09/18 04:09 Pulse Oximetry 100 09/09/18 04:09 Last Documented Vital Signs Temperature 100.7 F H 09/09/18 04:09 Pulse Rate 115 H 09/09/18 04:09 Respiratory Rate 17 09/09/18 04:09 Blood Pressure 129/76 09/09/18 04:09 Pulse Oximetry 100 09/09/18 04:09 Medical Decision Making MDM Narrative Medical decision making narrative: eill check labs, xr and dose with vancomycin and zosyn and patient will need to be admitted Medical Screen Exam Complete: Yes Emergency Medical Condition: Yes Differential Diagnosis Differential Diagnosis: endocarditis, sepsis, uti, pneumonia Lab Data Result diagrams: 09/09/18 04:35 09/09/18 04:35 Lab Results 09/09/18 09/09/18 09/09/18 Range/Units 04:35 04:35 04:35 WBC 9.4 (4.0-11.0) th/mm3 RBC 4.23 (4.00-5.30) mil/mm3 Hgb 10.9 L (11.6-15.3) gm/dL Hct 32.1 L (35.0-46.0) % MCV 75.8 L (80.0-100.0) fL MCH 25.7 L (27.0-34.0) pg MCHC 33.9 (32.0-36.0) % RDW 17.3 H (11.6-17.2) % Plt Count 259 (150-450) th/mm3 MPV 7.3 (7.0-11.0) fL Neut % (Auto) 72.9 H (16.0-70.0) % Lymph % (Auto) 21.9 (9.0-44.0) % [place] % (Auto) 4.0 (0.0-8.0) % Eos % (Auto) 0.9 (0.0-4.0) % Baso % (Auto) 0.3 (0.0-2.0) % Neut # (Auto) 6.8 (1.8-7.7) th/mm3 Lymph # (Auto) 2.1 (1.0-4.8) th/mm3 [place] # (Auto) 0.4 (0.0-0.9) th/mm3 Eos # (Auto) 0.1 (0.0-0.4) th/mm3 Baso # (Auto) 0.0 (0.0-0.2) th/mm3 WBC Differential . Differential Comment Auto diff final PT 10.7 (9.8-11.6) sec INR 1.1 Ratio APTT 35.5 H (23.4-31.7) sec Sodium 134 L (136-145) meq/L Potassium 3.9 (3.5-5.1) meq/L Chloride 99 (98-107) meq/L Carbon Dioxide 26.7 (21.0-32.0) meq/L Anion Gap 8 (5-15) meq/L BUN 10 (7-18) mg/dL Creatinine 0.89 (0.50-1.00) mg/dL Estimated GFR 75 L (>89) mL/min Random Glucose 98 (74-106) mg/dL Lactic Acid (0.4-2.0) mmol/L Calcium 9.0 (8.5-10.1) mg/dL Magnesium 2.0 (1.5-2.5) mg/dL Total Bilirubin 0.2 (0.2-1.0) mg/dL AST 13 L (15-37) U/L ALT 13 (10-53) U/L Alkaline Phosphatase 91 (45-117) U/L Total Creatine Kinase 36 (26-192) U/L Troponin I Less than 0.02 L (0.02-0.05) ng/mL Total Protein 8.9 H D (6.4-8.2) g/dL Albumin 3.4 (3.4-5.0) g/dL 09/09/18 Range/Units 04:35 WBC (4.0-11.0) th/mm3 RBC (4.00-5.30) mil/mm3 Hgb (11.6-15.3) gm/dL Hct (35.0-46.0) % MCV (80.0-100.0) fL MCH (27.0-34.0) pg MCHC (32.0-36.0) % RDW (11.6-17.2) % Plt Count (150-450) th/mm3 MPV (7.0-11.0) fL Neut % (Auto) (16.0-70.0) % Lymph % (Auto) (9.0-44.0) % [place] % (Auto) (0.0-8.0) % Eos % (Auto) (0.0-4.0) % Baso % (Auto) (0.0-2.0) % Neut # (Auto) (1.8-7.7) th/mm3 Lymph # (Auto) (1.0-4.8) th/mm3 [place] # (Auto) (0.0-0.9) th/mm3 Eos # (Auto) (0.0-0.4) th/mm3 Baso # (Auto) (0.0-0.2) th/mm3 WBC Differential Differential Comment PT (9.8-11.6) sec INR Ratio APTT (23.4-31.7) sec Sodium (136-145) meq/L Potassium (3.5-5.1) meq/L Chloride (98-107) meq/L Carbon Dioxide (21.0-32.0) meq/L Anion Gap (5-15) meq/L BUN (7-18) mg/dL Creatinine (0.50-1.00) mg/dL Estimated GFR (>89) mL/min Random Glucose (74-106) mg/dL Lactic Acid 1.9 (0.4-2.0) mmol/L Calcium (8.5-10.1) mg/dL Magnesium (1.5-2.5) mg/dL Total Bilirubin (0.2-1.0) mg/dL AST (15-37) U/L ALT (10-53) U/L Alkaline Phosphatase (45-117) U/L Total Creatine Kinase (26-192) U/L Troponin I (0.02-0.05) ng/mL Total Protein (6.4-8.2) g/dL Albumin (3.4-5.0) g/dL Imaging Data Radiologist's impression: Chest X-Ray 09/09/18 04:14 CONCLUSION: No acute cardiothoracic process. Discharge Plan Discharge Disposition Patient Disposition: ED Admit(ED Internal Use Only) Discharge Order Discharge Orders: ED Use Only Admit Order (Routine); Ordered 09/09/18 Ordered By: Fara Jules Discharge Details Diagnosis: Sepsis Physicians Team ED Provider: Fara Jules Primary Care Provider: Primary Care Physici,No Rxs /Orders / Referrals /Forms Prescriptions: No Action No Known Home Medications RF: 0 Status ED Status: Admitted Patient
--- NOTE | 2018-09-09 04:45 | XR ---
EXAM DATE: 09/09/2018 4:34 AM EST AGE/SEX: 28 years / Female INDICATIONS: Fever. CLINICAL DATA: This is the patient's subsequent encounter. Patient reports that signs and symptoms h ave been present for 1 week and indicates a pain score of 0/10. MEDICAL/SURGICAL HISTORY: Hepatitis C. Cirrhosis. Sepsis. Endocarditis. None. COMPARISON: [facility] – [place], [place], CHEST 1V SINGLE AP, 09/01/2018. [facility] – [place], [place], CTA PULMONARY W CONTRAST W 3D, 08/15/2018. . FINDINGS: A single AP view of the chest demonstrates the lungs to be symmetrically aerated without evidence of mass, infiltrate or effusion. The cardiomediastinal contours are unremarkable. Osseous structures a re intact. CONCLUSION: No acute cardiothoracic process. Electronically signed by: Mohit Pinzon MD Board Certified Radiologist 09/09/2018 4:43 AM EST
[2018-09-09 05:03] LABS: Baso % (Auto) 0.3 % (0.0-2.0); Eos # (Auto) 0.1 th/mm3 (0.0-0.4); Eos % (Auto) 0.9 % (0.0-4.0); Hematocrit 32.1 % (35.0-46.0); Hemoglobin 10.9 gm/dL (11.6-15.3); Lymph # (Auto) 2.1 th/mm3 (1.0-4.8); Lymph % (Auto) 21.9 % (9.0-44.0); Mean Corpuscular HGB Conc 33.9 % (32.0-36.0); Mean Corpuscular Hemoglobin 25.7 pg (27.0-34.0); Mean Corpuscular Volume 75.8 fL (80.0-100.0); Mean Platelet Volume 7.3 fL (7.0-11.0); Mono # (Auto) 0.4 th/mm3 (0.0-0.9); Neut # (Auto) 6.8 th/mm3 (1.8-7.7); Neut % (Auto) 72.9 % (16.0-70.0); Platelet Count 259 th/mm3 (150-450); Red Blood Count 4.23 mil/mm3 (4.00-5.30); Red Cell Distribution Width 17.3 % (11.6-17.2); White Blood Count 9.4 th/mm3 (4.0-11.0)
[2018-09-09 05:16] LABS: Activated Partial Thrombo Time 35.5 sec (23.4-31.7); INR 1.1 Ratio; Prothrombin Time 10.7 sec (9.8-11.6)
[2018-09-09 05:24] LABS: Albumin 3.4 g/dL (3.4-5.0); Anion Gap 8 meq/L (5-15); Aspartate Aminotransferase 13 U/L (15-37); Blood Urea Nitrogen 10 mg/dL (7-18); Carbon Dioxide 26.7 meq/L (21.0-32.0); Chloride 99 meq/L (98-107); Glomerular Filtration Rate 75 mL/min (>89); Glucose,Random 98 mg/dL (74-106); Potassium 3.9 meq/L (3.5-5.1); Sodium 134 meq/L (136-145)
[2018-09-09 05:25] LABS: Alanine Aminotransferase 13 U/L (10-53)
[2018-09-09 05:29] LABS: Alkaline Phosphatase 91 U/L (45-117); Total Protein 8.9 g/dL (6.4-8.2)
[2018-09-09 05:33] LABS: Creatine Kinase 36 U/L (26-192)
[2018-09-09] MEDS ORDERED: Vancomycin Consult Pharmacy OTHER PRN (05:52)
[2018-09-09] MEDS ORDERED: Acetaminophen 325 MG Tablet PO PRN (05:54)
[2018-09-09] MEDS ORDERED: Bisacodyl 10 MG Supp RECTAL PRN (05:54)
[2018-09-09] MEDS: Sod Chloride 0.9% Inj 1,000 ML IV.CONT SCH ×2 (10:14→16:41)
[2018-09-09] MEDS ORDERED: Piperacil/Tazo 3.375 GM Premix 3.375 GM/50 ML PIGGYBACK IV.SIG SCH (11:00)
[2018-09-09 12:02] VITALS: RESP 16
--- NOTE | 2018-09-09 15:35 | P.HPIM ---
History of Present Illness Service: [facility] Primary Care Physician: No Primary Care Physician Chief Complaint: fever, returned to complete treatment for endocarditis History of Present Illness: Patient is a 28 year old female with a past medical history significant for IV drug use, endocarditis, hepatitis C and MDRO. She initially presented to the hospital 07/11/18 for a right foot infection. Her blood cultures were positive for gram-positive cocci. An echocardiogram was completed and showed positive tricuspid valve vegetation. It was noted that patient had presented to [facility] 4-5 weeks prior to coming here and she was treated with Bactrim and Keflex for a total of 10 days. Patient left AMA and did not complete her course of antibiotic therapy. She presented again 07/21, 08/02, 08/15 and 09/01. Patient left AMA during those admissions. She now presents stating she spiked a fever of 102F yesterday and would like to continue her treatment. She states she has made arrangements for her child and other personal affairs and will remain in the hospital to complete her course of antibiotics. Patient last used heroin yesterday. She reports intermittent chest pain but none at time of assessment. She denies shortness of breath, nausea or vomiting. No further episodes of fevers or chills overnight. Her white blood cell count is unremarkable. Her initial random troponin was negative. Patient in no acute distress at present time. Inpatient Certification Inpatient Certification: I certify that the inpatient services were ordered in accordance with Medicare regulations governing the order. This includes certification that hospital inpatient services are reasonable and necessary and in the case of services not specified as inpatient-only under 42 CFR 419.22(n), that they are appropriately provided as inpatient services in accordance to with the 2-midnight benchmark under 43 CFR 412.3(e) Estimated Total Length of Stay (Days): 2 Plans for Post Hospital Care: Home Review of Systems Review of Systems: all other systems reviewed are negative (except as documented all other systems reviewed and negative) FOR[facility]LY [facility] Medical History Medical History Endocarditis (Acute) Hepatitis C (Acute) IV drug abuse (Acute) MDRO (multiple drug resistant organisms) resistance (Acute ~07/11/18) Surgical History Surgical History No history of previous surgery (Acute) Family History Family History Other Osteoarthritis Social History Social History Substance History: Active Abuse and Past History Second Hand Smoke Exposure: No Smoking Status: Current every day smoker Tobacco Type: Cigarettes How Often Do You Have a Drink Containing Alcohol: Never Recent Travel in [facility] within the Last 8 Weeks: No Recent Out of Country Travel within the Last 8 Weeks: No Substance Abuse Detail Heroin: Substance Use Status: Active Route Used Substance Abuse: Intravenously Reason for Use: Feels Good Immunization History Tetanus Immunization: <5 Years Tetanus Immunization Year if Known: 2017 Hx Influenza Vaccine This Season: No Medications and Allergies Allergies Allergy/AdvReac Type Severity Reaction Status Date / Time No Known Allergies Allergy Verified 09/09/18 04:36 Home Medications Medication Instructions Recorded Confirmed Type No Known Home Medications 08/02/18 09/09/18 History Active Medications: Active Medications Acetaminophen (Tylenol) 650 mg PO Q4H PRN PRN Reason: Temp > 100.4 Al Hydroxide/Mg Hydroxide (Milk Of Magnesia Liq) 30 ml PO Q12H PRN PRN Reason: Mild Constipation Bisacodyl (Dulcolax Supp) 10 mg RECTAL DAILY PRN PRN Reason: SEVERE CONSITIPATION Sodium Chloride (Ns Inj) 1,000 mls @ 100 mls/hr IV.CONT .Q10H [facility] Last Admin: 09/09/18 10:14 Dose: 100 mls/hr Daptomycin 500 mg/ Sodium (Chloride) 100 mls @ 200 mls/hr IV.SIG Q24H [facility] Lactulose (Lactulose Liq) 30 ml PO DAILY PRN PRN Reason: SEVERE CONSITIPATION Miscellaneous Information ([facility] Ordered Lab Info) 0 each OTHER ONCE ONE Stop: 09/10/18 17:46 Ondansetron HCl (Zofran Inj) 4 mg IV.PUSH Q6H PRN PRN Reason: NAUSEA OR VOMITING Sennosides (Senokot) 17.2 mg PO Q12H PRN PRN Reason: Moderate Constipation Sodium Chloride (Ns Flush) 2 ml IV.FLUSH BID [facility] Last Admin: 09/09/18 10:14 Dose: 2 ml Sodium Chloride (Ns Flush) 2 ml IV.FLUSH PRN PRN PRN Reason: FLUSH AFTER USING IV ACCESS Physical Exam Vital signs: Last Vital Signs Temp 97.3 F L 09/09/18 12:00 Pulse 69 09/09/18 12:00 Resp 16 09/09/18 12:00 BP 95/53 L 09/09/18 12:00 Pulse Ox 98 09/09/18 12:00 Intake & Output 09/07/18 09/08/18 09/09/18 09/10/18 06:59 06:59 06:59 06:59 Intake Total 1350 / 1350 50 / 50 Balance 1350 / 1350 50 / 50 Weight 56.699 kg Constitutional no acute distress Routine HEENT Exam Head: Present normocephalic and atraumatic Eye: Present EOMI and PERRL ENT: Present mucous membranes moist Routine Neck Exam Present supple and full ROM; Absent JVD Routine Chest/Breast/Axilla Exam Chest wall: Absent tenderness Routine Respiratory Exam Present CTA bilaterally; Absent accessory muscle use and wheezes Routine Cardiovascular Exam Present RRR, S1 and S2; Absent murmur Routine Abdominal Exam Present soft; Absent tenderness and distended Routine Skin Exam Present intact Routine Neurological Exam Present alert, oriented X3 and CN II-XII intact; Absent sensory deficit Routine Psychiatric Exam Present normal affect Results Labs CBC & Chem 7: 09/09/18 04:35 09/09/18 04:35 Imaging Impressions Chest X-Ray 09/09/18 04:14 CONCLUSION: No acute cardiothoracic process. Caprini VTE Risk Assessment Caprini VTE Risk Assessment: No/Low Risk (score <= 1) Caprini Risk Assessment Model: Point Value = 1 Point Value = 2 Point Value = 3 Point Value = 5 Age 41-60 Minor surgery BMI > 25 kg/m2 Swollen legs Varicose veins or History of unexplained or recurrent spontaneous Oral contraceptives or hormone replacement Sepsis (< 1 month) Serious lung disease, including pneumonia (< 1 month) Abnormal pulmonary function Acute myocardial infarction Congestive heart failure (< 1 month) History of inflammatory bowel disease Medical patient at bed rest Age 61-74 Arthroscopic surgery Major open surgery (> 45 min) Laparoscopic surgery (> 45 min) Malignancy Confined to bed (> 72 hours) Immobilizing plaster cast Central venous access Age >= 75 History of VTE Family history of VTE Factor V Leiden Prothrombin [id number] Lupus anticoagulant Anticardiolipin antibodies Elevated serum homocysteine Heparin-induced thrombocytopenia Other congenital or acquired thrombophilia Stroke (< 1 month) Elective arthroplasty Hip, pelvis, or leg fracture Acute spinal cord injury (< 1 month) Prophylaxis Regimen: Total Risk Factor Score Risk Level Prophylaxis Regimen 0-1 Low Early ambulation 2 Moderate Order ONE of the following: *Sequential Compression Device (SCD) *Heparin 5000 units SQ BID 3-4 Higher Order ONE of the following medications: *Heparin 5000 units SQ TID *Enoxaparin/Lovenox 40 mg SQ daily (WT < 150 kg, CrCl > 30 mL/min) *Enoxaparin/Lovenox 30 mg SQ daily (WT < 150 kg, CrCl > 10-29 mL/min) *Enoxaparin/Lovenox 30 mg SQ BID (WT < 150 kg, CrCl > 30 mL/min) AND/OR *Sequential Compression Device (SCD) 5 or more Highest Order ONE of the following medications: *Heparin 5000 units SQ TID (Preferred with Epidurals) *Enoxaparin/Lovenox 40 mg SQ daily (WT < 150 kg, CrCl > 30 mL/min) *Enoxaparin/Lovenox 30 mg SQ daily (WT < 150 kg, CrCl > 10-29 mL/min) *Enoxaparin/Lovenox 30 mg SQ BID (WT < 150 kg, CrCl > 30 mL/min) AND *Sequential Compression Device (SCD) Assessment and Plan Plan Patient is a 28 year old female with a past medical history significant for IV drug abuse, hepatitis C and MDRO. She was recently diagnosed with endocarditis in 07/13 and was hospitalized on several separate occasions but left the hospital against medical advice prior to completing her full antibiotic course as recommended by ID. 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 with interruptions in treatment 2/2 patient leaving AMA -prior CT of lungs showed septic emboli -d/c'd Vanc and Zosyn -check CK level and 21 -pt started on Daptomycin as previously recommended by ID -consult ID Fever -likely secondary to above -see treatment plan as outlined above Anemia, microcytic - chronic and stable -likely [place] -no e/o bleeding -monitor closely Opiate addiction -pt reports most recent heroin use yesterday MDM: self Code: Full DVT ppx: Heparin SQ Further orders pending clinical course and patients response to therapy Code Status: Full Discussed Condition With: RN, patient H&P: Quality VTE Deep Vein Thrombosis/Pulmonary Embolism Present on Admission: No
[2018-09-09] MEDS: DAPTOmycin Inj 500 MG in Sodium Chlor 0.9% Inj 100 ML IV.SIG SCH (16:49)
[2018-09-09] MEDS ORDERED: Vancomycin Inj 1,000 MG in Sodium Chlor 0.9% Inj 250 ML IV.SIG SCH (18:00)
[2018-09-09] MEDS: Lactobacillus Acidophilus/L. Spores Tablet PO SCH (20:03)
[2018-09-10] MEDS: Sod Chloride 0.9% Inj 1,000 ML IV.CONT SCH ×2 (03:30→11:42)
[2018-09-10] MEDS: Lactobacillus Acidophilus/L. Spores Tablet PO SCH ×3 (09:09→17:42)
[2018-09-10 10:57] LABS: Baso % (Auto) 0.3 % (0.0-2.0); Eos # (Auto) 0.2 th/mm3 (0.0-0.4); Eos % (Auto) 2.1 % (0.0-4.0); Hemoglobin 11.1 gm/dL (11.6-15.3); Lymph # (Auto) 2.6 th/mm3 (1.0-4.8); Lymph % (Auto) 27.5 % (9.0-44.0); Mean Corpuscular HGB Conc 32.6 % (32.0-36.0); Mean Corpuscular Hemoglobin 25.5 pg (27.0-34.0); Mean Corpuscular Volume 78.3 fL (80.0-100.0); Mean Platelet Volume 7.4 fL (7.0-11.0); Mono # (Auto) 0.3 th/mm3 (0.0-0.9); Mono % (Auto) 3.6 % (0.0-8.0); Neut # (Auto) 6.2 th/mm3 (1.8-7.7); Neut % (Auto) 66.5 % (16.0-70.0); Platelet Count 233 th/mm3 (150-450); Red Blood Count 4.35 mil/mm3 (4.00-5.30); White Blood Count 9.3 th/mm3 (4.0-11.0)
[2018-09-10 11:41] VITALS: O2SAT 99
[2018-09-10 11:41] LABS: Alanine Aminotransferase 23 U/L (10-53); Albumin 3.1 g/dL (3.4-5.0); Anion Gap 3 meq/L (5-15); Aspartate Aminotransferase 22 U/L (15-37); Blood Urea Nitrogen 7 mg/dL (7-18); Calcium 9.2 mg/dL (8.5-10.1); Carbon Dioxide 30.7 meq/L (21.0-32.0); Chloride 102 meq/L (98-107); Glomerular Filtration Rate 89 mL/min (>89); Glucose,Random 108 mg/dL (74-106); Potassium 4.1 meq/L (3.5-5.1); Sodium 136 meq/L (136-145)
[2018-09-10 11:44] LABS: Alkaline Phosphatase 81 U/L (45-117); Total Protein 8.4 g/dL (6.4-8.2)
[2018-09-10] MEDS: DAPTOmycin Inj 500 MG in Sodium Chlor 0.9% Inj 100 ML IV.SIG SCH (15:43)
--- NOTE | 2018-09-10 16:03 | P.PNIM ---
Subjective Interval history: Follow-up MRSA endocarditis, IV drug use, fevers Patient seen and examined while sitting up in bed. She denies any generalized body aches or pains. She has had episodes of diarrhea according to medical staff director, however, refused to take her lactobacillus. We will continue to monitor and order stool studies if indicated. Patient denies any chest pain, shortness of breath, palpitations or fevers overnight. She further denies any nausea vomiting. Physical Exam Vital signs: Last Vital Signs Temp 98.0 F 09/10/18 07:34 Pulse 96 H 09/10/18 11:40 Resp 16 09/10/18 11:40 BP 99/63 L 09/10/18 11:40 Pulse Ox 99 09/10/18 11:40 Intake & Output 09/08/18 09/09/18 09/10/18 09/11/18 06:59 06:59 06:59 06:59 Intake Total 1350 / 1350 950 / 950 Balance 1350 / 1350 950 / 950 Weight 56.699 kg 60 kg Narrative: GENERAL: no acute distress, well developed, well nourished SKIN: Warm and dry. HEAD: Normocephalic, atraumatic EYES: No scleral icterus. No injection or drainage. NECK: Supple, trachea midline. No JVD or lymphadenopathy. CARDIOVASCULAR: Regular rate and rhythm without murmurs, gallops, or rubs. RESPIRATORY: Breath sounds equal bilaterally. No accessory muscle use. GASTROINTESTINAL: Abdomen soft, non-tender, nondistended. MUSCULOSKELETAL: No cyanosis, or edema. Results Labs CBC & Chem 7: 09/10/18 10:05 09/10/18 10:05 Labs: Microbiology 09/09/18 04:30 Blood - Peripheral Aerobic Blood Culture - Preliminary No growth in 1 day 09/09/18 04:30 Blood - Peripheral Anaerobic Blood Culture - Preliminary No growth in 1 day 09/09/18 04:40 Blood - Peripheral Aerobic Blood Culture - Preliminary No growth in 1 day 09/09/18 04:40 Blood - Peripheral Anaerobic Blood Culture - Preliminary No growth in 1 day Assessment and Plan Plan Patient is a 28 year old female with a past medical history significant for IV drug abuse, hepatitis C and MDRO. She was recently diagnosed with endocarditis in 07/13 and was hospitalized on several separate occasions but left the hospital against medical advice prior to completing her full antibiotic course as recommended by ID. 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 with interruptions in treatment /2 patient leaving AMA -prior CT of lungs showed septic emboli -pt started on Daptomycin as previously recommended by ID, monitor CPK -consult ID Fever - afebrile overnight -likely secondary to above -see treatment plan as outlined above Anemia, microcytic - chronic and stable -likely [place] -no e/o bleeding -monitor closely Opiate addiction -pt reports most recent heroin use the day prior to admission MDM: self Code: Full DVT ppx: Heparin SQ Code Status: Full Discussed Condition With: RN, patient Progress Note: Quality VTE Deep Vein Thrombosis/Pulmonary Embolism Present on Admission: No
[2018-09-10 16:55] VITALS: BP 106/64; PULSE 72; TEMP 98.5
[2018-09-10] MEDS ORDERED: Pharmacy Ordered Lab Info OTHER ONE (17:45)
== END 2018-09-10 19:50 | disposition left against medical advice (07) ==
LOC: NEPC 04:06 → NEDA 05:52 → NEPHCDU 07:53
PROVIDERS: ADMIT Internal Medicine; ATTEND Internal Medicine

== ENCOUNTER 2018-09-15 03:23 | Inpatient (IN) ==
[2018-09-15] MEDS ORDERED: SODIUM CHLOR 0.9% IV.SIG ONE (04:06)
[2018-09-15] MEDS ORDERED: DAPTOMYCIN IV.SIG ONE (04:06)
--- NOTE | 2018-09-15 04:41 | XR ---
EXAM DATE: 09/15/2018 4:24 AM EST AGE/SEX: 28 years / Female INDICATIONS: Fever. CLINICAL DATA: This is the patient's initial encounter. Patient reports that signs and symptoms have been present for 1 day and indicates a pain score of 0/10. MEDICAL/SURGICAL HISTORY: . Hepatitis C. Cirrhosis. Sepsis. Endocarditis. None. COMPARISON: [facility], CHEST 1V SINGLE AP, 09/09/2018. . FINDINGS: A single AP view of the chest demonstrates the lungs to be symmetrically aerated without evidence of mass, infiltrate or effusion. The cardiomediastinal contours are unremarkable. Osseous structures a re intact. CONCLUSION: The lungs are clear. Electronically signed by: Eric Santacruz MD Board Certified Radiologist 09/15/2018 4:40 AM EST
[2018-09-15] MEDS: Sod Chloride 0.9% Inj 1,000 ML IV.SIG SCH ×3 (04:52→06:17)
[2018-09-15 04:56] LABS: Baso % (Auto) 0.3 % (0.0-2.0); Eos % (Auto) 0.2 % (0.0-4.0); Hematocrit 30.8 % (35.0-46.0); Hemoglobin 10.5 gm/dL (11.6-15.3); Lymph # (Auto) 1.6 th/mm3 (1.0-4.8); Mean Corpuscular Hemoglobin 25.7 pg (27.0-34.0); Mean Corpuscular Volume 75.5 fL (80.0-100.0); Mean Platelet Volume 7.4 fL (7.0-11.0); Mono # (Auto) 0.5 th/mm3 (0.0-0.9); Mono % (Auto) 4.7 % (0.0-8.0); Neut # (Auto) 9.3 th/mm3 (1.8-7.7); Neut % (Auto) 80.8 % (16.0-70.0); Platelet Count 207 th/mm3 (150-450); Red Blood Count 4.08 mil/mm3 (4.00-5.30); Red Cell Distribution Width 17.3 % (11.6-17.2); White Blood Count 11.5 th/mm3 (4.0-11.0)
[2018-09-15 05:15] LABS: Albumin 3.4 g/dL (3.4-5.0); Anion Gap 6 meq/L (5-15); Aspartate Aminotransferase 10 U/L (15-37); Blood Urea Nitrogen 10 mg/dL (7-18); Carbon Dioxide 28.2 meq/L (21.0-32.0); Chloride 100 meq/L (98-107); Glomerular Filtration Rate 84 mL/min (>89); Glucose,Random 112 mg/dL (74-106); Potassium 3.9 meq/L (3.5-5.1); Sodium 134 meq/L (136-145)
[2018-09-15 05:18] LABS: Alanine Aminotransferase 13 U/L (10-53); Alkaline Phosphatase 82 U/L (45-117); Total Protein 8.3 g/dL (6.4-8.2)
--- NOTE | 2018-09-15 05:20 | ED ---
HPI General Chief Complaint: Fever Stated Complaint: Chills/Fever Time Seen by Provider: 09/15/18 03:50 Source: patient Mode of arrival: ambulatory Limitations: no limitations History of Present Illness HPI Narrative: 28 yo F hx VIKASH arrives to ED stating she has endocarditis and needs to complete her course of Daptomycin. Associated symptoms include fever. No CP/SOB. Location heart and generalized. Severity moderate. No modifying factor. Related Data Home Medications Medication Instructions Recorded Confirmed No Known Home Medications 08/02/18 09/15/18 Allergies Allergy/AdvReac Type Severity Reaction Status Date / Time No Known Allergies Allergy Verified 09/15/18 03:45 Review of Systems ROS: all other systems reviewed are negative [facility] Social History Social History Substance History: Active Abuse Second Hand Smoke Exposure: Yes Smoking Status: Current every day smoker Tobacco Type: Cigarettes How Often Do You Have a Drink Containing Alcohol: Never Recent Travel in [facility] within the Last 8 Weeks: No Recent Out of Country Travel within the Last 8 Weeks: No Substance Abuse Detail Heroin: Substance Use Status: Active Route Used Substance Abuse: Intravenously Reason for Use: Feels Good Immunization History Tetanus Immunization: <5 Years Tetanus Immunization Year if Known: 2018 Exam Narrative Exam Narrative: GENERAL: 28 yo F, WNWD, NAD SKIN: Focused skin assessment warm/dry. HEAD: Atraumatic. Normocephalic. EYES: Pupils equal and round. No scleral icterus. No injection or drainage. ENT: No nasal bleeding or discharge. Mucous membranes pink and moist. NECK: Trachea midline. No JVD. CARDIOVASCULAR: Rate approximately 120. Regular. RESPIRATORY: Lungs clear bilaterally. No tachypnea. GASTROINTESTINAL: Abdomen soft, non-tender, nondistended. Hepatic and splenic margins not palpable. MUSCULOSKELETAL: No obvious deformities. No clubbing. No cyanosis. No edema. NEUROLOGICAL: Awake and alert. No obvious cranial nerve deficits. Motor grossly within normal limits. Normal speech. PSYCHIATRIC: Appropriate mood and affect; insight and judgment normal. Course Initial Documented Vital Signs Temperature 102.0 F H 09/15/18 03:40 Pulse Rate 126 H 09/15/18 03:40 Respiratory Rate 20 09/15/18 03:40 Blood Pressure 116/56 L 09/15/18 03:40 Pulse Oximetry 97 09/15/18 03:40 Last Documented Vital Signs Temperature 102.0 F H 09/15/18 03:40 Pulse Rate 126 H 09/15/18 03:40 Respiratory Rate 20 09/15/18 03:40 Blood Pressure 116/56 L 09/15/18 03:40 Pulse Oximetry 98 09/15/18 04:06 Medical Decision Making MDM Narrative Medical decision making narrative: Pt has endocarditis from IVDA. Pt has signed out AMA multiple times on previous admissions. Per ID tx w daptomycin. CBC shows WBC of 11.5 CMP insignificant variances from normal ranges ekg sinus, rate 97, normal axis/interval Call to [facility] at 515AM. d/w Dr Colunga at 523AM. Medical Screen Exam Complete: Yes Emergency Medical Condition: Yes Lab Data Result diagrams: 09/15/18 04:40 09/15/18 04:40 Lab Results 09/15/18 09/15/18 09/15/18 Range/Units 04:40 04:40 04:40 WBC 11.5 H (4.0-11.0) th/mm3 RBC 4.08 (4.00-5.30) mil/mm3 Hgb 10.5 L (11.6-15.3) gm/dL Hct 30.8 L (35.0-46.0) % MCV 75.5 L (80.0-100.0) fL MCH 25.7 L (27.0-34.0) pg MCHC 34.0 (32.0-36.0) % RDW 17.3 H (11.6-17.2) % Plt Count 207 (150-450) th/mm3 MPV 7.4 (7.0-11.0) fL Neut % (Auto) 80.8 H (16.0-70.0) % Lymph % (Auto) 14.0 (9.0-44.0) % Cloud % (Auto) 4.7 (0.0-8.0) % Eos % (Auto) 0.2 (0.0-4.0) % Baso % (Auto) 0.3 (0.0-2.0) % Neut # (Auto) 9.3 H (1.8-7.7) th/mm3 Lymph # (Auto) 1.6 (1.0-4.8) th/mm3 Cloud # (Auto) 0.5 (0.0-0.9) th/mm3 Eos # (Auto) 0.0 (0.0-0.4) th/mm3 Baso # (Auto) 0.0 (0.0-0.2) th/mm3 WBC Differential . Differential Comment Auto diff final Sodium 134 L (136-145) meq/L Potassium 3.9 (3.5-5.1) meq/L Chloride 100 (98-107) meq/L Carbon Dioxide 28.2 (21.0-32.0) meq/L Anion Gap 6 (5-15) meq/L BUN 10 (7-18) mg/dL Creatinine 0.81 (0.50-1.00) mg/dL Estimated GFR 84 L (>89) mL/min Random Glucose 112 H (74-106) mg/dL Lactic Acid 1.3 (0.4-2.0) mmol/L Calcium 9.0 (8.5-10.1) mg/dL Total Bilirubin 0.3 (0.2-1.0) mg/dL AST 10 L (15-37) U/L ALT 13 (10-53) U/L Alkaline Phosphatase 82 (45-117) U/L Total Protein 8.3 H (6.4-8.2) g/dL Albumin 3.4 (3.4-5.0) g/dL Imaging Data Radiologist's impression: Chest X-Ray 09/15/18 04:06 CONCLUSION: The lungs are clear. Discharge Plan Discharge Disposition Patient Disposition: ED Admit(ED Internal Use Only) Physicians Team ED Provider: Apolinar Harper Primary Care Provider: Primary Care Lety Lozano Rxs /Orders / Referrals /Forms Prescriptions: No Action No Known Home Medications RF: 0 Status ED Status: With Doctor
[2018-09-15] MEDS ORDERED: Bisacodyl 10 MG Supp RECTAL PRN (05:23)
[2018-09-15] MEDS ORDERED: Acetaminophen 325 MG Tablet PO PRN (05:23)
[2018-09-15] MEDS ORDERED: Sod Chloride 0.9% Inj 1,000 ML IV.CONT SCH (05:30)
--- NOTE | 2018-09-15 08:03 | ECG ---
Date Performed: 09/15/2018 Time Performed: 04:55:35 PTAGE: 28 years EKG: Sinus rhythm NONSPECIFIC T-WAVE ABNORMALITY BORDERLINE ECG INTERPRETATION BASED ON A DEFAULT AGE OF 40 YEARS PREVIOUS TRACING : 09/01/2018 12.54 DOCTOR: Eric Lorenzana Interpretating Date/Time 09/15/2018 08:01:29
[2018-09-15] MEDS ORDERED: Senna/Docusate Sodium 8.6/50 MG Tablet PO SCH (09:00)
--- NOTE | 2018-09-15 10:13 | P.HP ---
History of Present Illness Primary Care Physician: No Primary Care Physician History of Present Illness: 28-year-old white female being admitted for fever, likely secondary to inadequately treated endocarditis secondary to noncompliance. Patient reports being in usual state of health until yesterday when she felt subjective fever which did end up measuring to 103, she did not treated with anything. Denies any nausea vomiting headaches. Denies any chest pain shortness of breath. Says she last attempted IV drug use yesterday and her left AC fossa. Denies any diarrhea. In the ED the patient had a temperature noted of 102. Chest x-ray which I independently reviewed was negative for any acute infiltrates. EKG which I also reviewed was also negative for any acute findings. Patient was recently admitted to the hospital earlier in August to try to finish her in-house regimen of IV antibiotics for endocarditis but she ended up leaving just 5 days ago AMA. When I asked the patient why she left last time she says that she goes back and forth between [place] and here helping her fianc out with his work as well as with attending to her child. When I asked her if she plans on staying the 6 weeks in house this time she says he has, after which her next follow-up question is she can receive methadone. Patient's last echocardiogram was done on July 11, suspicious for a 1 cm vegetation on tricuspid valve. Inpatient Certification: I certify that the inpatient services were ordered in accordance with Medicare regulations governing the order. This includes certification that hospital inpatient services are reasonable and necessary and in the case of services not specified as inpatient-only under 42 CFR 419.22(n), that they are appropriately provided as inpatient services in accordance to with the 2-midnight benchmark under 43 CFR 412.3(e) Estimated Total Length of Stay (Days): 2 Plans for Post Hospital Care: Not yet determined Review of Systems All other systems reviewed negative except as stated in HPI PMFSH - History History Provided By: Patient - Medical History Medical History: Medical History (Last Updated 09/15/18 @ 11:23 by Nilton Bhardwaj MD) Hepatitis C (Acute) Endocarditis (Acute) IV drug abuse (Acute) Foot abscess, right MDRO (multiple drug resistant organisms) resistance Onset Date: ~07/11/18 - Surgical History Surgical History: Surgical History (Last Reviewed 09/15/18 @ 10:17 by Nilton Bhardwaj MD) No history of previous surgery - Family History Family History: Family History (Last Reviewed 09/15/18 @ 10:17 by Nilton Bhardwaj MD) Other Osteoarthritis - Social History I have reviewed the patient's Social History: Yes - Tobacco History Second Hand Smoke Exposure: Yes Tobacco Use In Past 30 Days: Yes Smoking Status: Current every day smoker Tobacco Type: Cigarettes - Alcohol History How Often Do You Have a Drink Containing Alcohol: Never - Substance Use History Substance History: Active Abuse - Substance Use Type Heroin Status: Active Route Used: Intravenously Reason for Use: Feels Good - Travel History Recent Travel in the [place] Within the Last 8 Weeks: No Recent Travel Out of the Country Within the Last 8 Weeks: No - Immunization History Tetanus Immunization: <5 Years Tetanus Immunization Year if Known: 2018 Medications and Allergies Active Medications: Active Medications Acetaminophen (Tylenol) 650 mg PO Q4H PRN PRN Reason: Temp > 100.4 Al Hydroxide/Mg Hydroxide (Milk Of Magnesia Liq) 30 ml PO Q12H PRN PRN Reason: Mild Constipation Bisacodyl (Dulcolax Supp) 10 mg RECTAL DAILY PRN PRN Reason: SEVERE CONSITIPATION Daptomycin 240 mg/ Sodium (Chloride) 100 mls @ 200 mls/hr IV.SIG Q24H [facility] Sodium Chloride (Ns Inj) 1,000 mls @ 100 mls/hr IV.CONT .Q10H [facility] Last Admin: 09/15/18 08:34 Dose: 100 mls/hr Lactulose (Lactulose Liq) 30 ml PO DAILY PRN PRN Reason: SEVERE CONSITIPATION Ondansetron HCl (Zofran Inj) 4 mg IV.PUSH Q6H PRN PRN Reason: NAUSEA OR VOMITING Senna/Docusate Sodium (Sravanthi-Colace) 1 tab PO BID [facility] Sennosides (Senokot) 17.2 mg PO Q12H PRN PRN Reason: Moderate Constipation Sodium Chloride (Ns Flush) 2 ml IV.FLUSH BID [facility] Sodium Chloride (Ns Flush) 2 ml IV.FLUSH PRN PRN PRN Reason: FLUSH AFTER USING IV ACCESS Allergies Allergy/AdvReac Type Severity Reaction Status Date / Time No Known Allergies Allergy Verified 09/15/18 03:45 Home Medications Medication Instructions Recorded Confirmed Type No Known Home Medications 08/02/18 09/15/18 History Exam Vital signs: Vital Signs 09/15/18 03:40 09/15/18 04:06 09/15/18 05:23 Temperature 102.0 F H Pulse Rate 126 H 103 H Respiratory Rate 20 16 Blood Pressure 116/56 L 101/66 Pulse Oximetry 97 98 97 09/15/18 05:38 09/15/18 07:20 Temperature 98.9 F Pulse Rate 86 90 Respiratory Rate 16 16 Blood Pressure 100/68 117/63 Pulse Oximetry 97 98 Intake & Output 09/14/18 09/15/18 09/15/18 18:59 06:59 18:59 Intake Total 3100 / 3100 Balance 3100 / 3100 Weight 56.699 kg Intake: IV 3100 / 3100 Cubicin Inj 200 MG In NS Inj 100 / 100 100 ML @ 200 mls/hr IV.SIG ONCE ONE Rx#:[id number] NS Inj 1,000 ML @ 3000 mls/hr 3000 / 3000 IV.SIG Q20M [facility] Rx#:[id number] Narrative: VS: afebrile GENERAL: Young white female, lying in bed, no acute distress SKIN: Warm and dry. EYES: Pupils equal and round, slightly dilated but reactive. No scleral icterus. No injection or drainage. ENT: No nasal bleeding or discharge. MMM. CARDIOVASCULAR: Regular rate and rhythm. RESPIRATORY: No accessory muscle use. Clear to auscultation. Breath sounds equal bilaterally. GASTROINTESTINAL: Abdomen soft, non-tender, nondistended. Extremities: No clubbing, cyanosis, or edema. No obvious deformities. MUSCULOSKELETAL: grossly intact ROM with 5/5 strength in upper and lower extremities proximally; adequate muscle bulk and tone for age and habitus NEUROLOGICAL: Awake and alert. No obvious cranial nerve deficits. No facial droop nor slurred speech noted. PSYCHIATRIC: Appropriate mood and affect; insight and judgment normal. Results - Labs CBC & Chem 7: 09/15/18 04:40 09/15/18 04:40 Labs: Laboratory Results - last 24 hr 09/15/18 09/15/18 09/15/18 04:40 04:40 04:40 WBC 11.5 H RBC 4.08 Hgb 10.5 L Hct 30.8 L MCV 75.5 L MCH 25.7 L MCHC 34.0 RDW 17.3 H Plt Count 207 MPV 7.4 Neut % (Auto) 80.8 H Lymph % (Auto) 14.0 Heard % (Auto) 4.7 Eos % (Auto) 0.2 Baso % (Auto) 0.3 Neut # (Auto) 9.3 H Lymph # (Auto) 1.6 Heard # (Auto) 0.5 Eos # (Auto) 0.0 Baso # (Auto) 0.0 WBC Differential . Differential Comment Auto diff final Sodium 134 L Potassium 3.9 Chloride 100 Carbon Dioxide 28.2 Anion Gap 6 BUN 10 Creatinine 0.81 Estimated GFR 84 L Random Glucose 112 H Lactic Acid 1.3 Calcium 9.0 Total Bilirubin 0.3 AST 10 L ALT 13 Alkaline Phosphatase 82 Total Protein 8.3 H Albumin 3.4 - Imaging Impressions Chest X-Ray 09/15/18 04:06 CONCLUSION: The lungs are clear. Caprini VTE Risk Assessment Caprini VTE Risk Assessment: No/Low Risk (score <= 1) Caprini Risk Assessment Model: Point Value = 1 Point Value = 2 Point Value = 3 Point Value = 5 Age 41-60 Minor surgery BMI > 25 kg/m2 Swollen legs Varicose veins or History of unexplained or recurrent spontaneous Oral contraceptives or hormone replacement Sepsis (< 1 month) Serious lung disease, including pneumonia (< 1 month) Abnormal pulmonary function Acute myocardial infarction Congestive heart failure (< 1 month) History of inflammatory bowel disease Medical patient at bed rest Age 61-74 Arthroscopic surgery Major open surgery (> 45 min) Laparoscopic surgery (> 45 min) Malignancy Confined to bed (> 72 hours) Immobilizing plaster cast Central venous access Age >= 75 History of VTE Family history of VTE Factor V Leiden Prothrombin [id number] Lupus anticoagulant Anticardiolipin antibodies Elevated serum homocysteine Heparin-induced thrombocytopenia Other congenital or acquired thrombophilia Stroke (< 1 month) Elective arthroplasty Hip, pelvis, or leg fracture Acute spinal cord injury (< 1 month) Prophylaxis Regimen: Total Risk Factor Score Risk Level Prophylaxis Regimen 0-1 Low Early ambulation 2 Moderate Order ONE of the following: *Sequential Compression Device (SCD) *Heparin 5000 units SQ BID 3-4 Higher Order ONE of the following medications: *Heparin 5000 units SQ TID *Enoxaparin/Lovenox 40 mg SQ daily (WT < 150 kg, CrCl > 30 mL/min) *Enoxaparin/Lovenox 30 mg SQ daily (WT < 150 kg, CrCl > 10-29 mL/min) *Enoxaparin/Lovenox 30 mg SQ BID (WT < 150 kg, CrCl > 30 mL/min) AND/OR *Sequential Compression Device (SCD) 5 or more Highest Order ONE of the following medications: *Heparin 5000 units SQ TID (Preferred with Epidurals) *Enoxaparin/Lovenox 40 mg SQ daily (WT < 150 kg, CrCl > 30 mL/min) *Enoxaparin/Lovenox 30 mg SQ daily (WT < 150 kg, CrCl > 10-29 mL/min) *Enoxaparin/Lovenox 30 mg SQ BID (WT < 150 kg, CrCl > 30 mL/min) AND *Sequential Compression Device (SCD) Assessment and Plan - Plan 28-year-old white female being admitted for fever, and complete treatment for endocarditis. Mutiple admissions and AMA departures, most recently left AMA. Not a reliable candidate for outpatient IV antibiotics per infectious diseases most recent consultation on 09/02. Fever Suspect secondary to incomplete treatment for endocarditis MRSA TV IE, with septic emboli to lung Chest x-ray negative -f/u blood cultures Resume daptomycin as this was ID his most recent recommendation 2 weeks ago Monitor CPK May consider ID consult next 24 hours Hep C -conservative care IV drug use Consider methadone Discharge Planning: Patient has left AMA multiple times. Counseled her on importance of remaining compliant with in-house tx regimen.
--- NOTE | 2018-09-15 16:58 | MB ---
cc: Arvin Painter MD DATE: 09/15/2018 REQUESTING PHYSICIAN: Nilton Bhardwaj MD REASON FOR CONSULTATION: Endocarditis, fever. HISTORY OF PRESENT ILLNESS: This is a 28-year-old white female who is known to have endocarditis and has been treated for endocarditis with antibiotics. She has signed out against medical advice from the hospital on many occasions in the past, including last hospitalization this month which she has left on 2 occasions. The patient had MRSA endocarditis involving the tricuspid valve. The patient said that she decided to come to the hospital to finish antibiotics because of fever. She tells me that she has no other symptoms. She has continued to use IV drugs in the form of heroin, including the last use a couple days ago. She reports that when she gets methadone, she has no need for IV drugs, but without the methadone, she continues to use IV drugs. The patient signed out against medical advice, despite multiple cautions about the importance of complete treatment for the infection. Her last positive blood culture was on 07/17/2018 with MRSA. This consultation is requested for antibiotic management. Infectious disease is consulted to manage the patient whenever she gets admitted back into the hospital. The patient tells me that she has no headache, chills, nausea or vomiting, and she looks very comfortable currently. PAST MEDICAL HISTORY: Endocarditis, hepatitis C, abscess of the right foot which was drained, IV drug abuse. ALLERGIES: NO KNOWN DRUG ALLERGIES. MEDICATIONS: 1. Daptomycin. 2. Sravanthi-Colace. SOCIAL HISTORY: Positive tobacco. No alcohol. Positive IV drugs in the form of heroin. FAMILY HISTORY: Noncontributory. REVIEW OF SYSTEMS: All systems have been reviewed and are negative. PHYSICAL EXAMINATION: GENERAL: This is a slender, well-developed female who is in no acute distress. She is awake and alert and oriented. VITAL SIGNS: Includes temperature of 98.9, BP 117/63, heart rate 90, respirations 14. HEENT: Head is atraumatic. Extraocular movements grossly intact. Pupils reactive to light. No icterus. Pharynx moist mucosa without lesions. NECK: Supple without adenopathy. LUNGS: Clear. HEART: Regular S1 and S2, without murmurs, rubs or gallops. ABDOMEN: Bowel sounds present, soft, nontender. EXTREMITIES: No clubbing, cyanosis or edema. SKIN: No rash. NEUROLOGIC: No gross focal findings. PSYCHIATRIC: The patient is calm and cooperative. LABORATORY DATA: WBC 11.5, platelet count 207, hemoglobin 10.5, creatinine 0.81, BUN 10, estimated GFR 84. Liver function tests normal. IMPRESSION: 1. 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 2. Recurrent fever. 3. Intravenous drug abuse. RECOMMENDATIONS: 1. Follow the blood cultures, which have been obtained. 2. Continue daptomycin. 3. Monitor temperature and clinical response to antibiotic treatment. At this point, I recommend that we give complete 4 weeks of uninterrupted treatment with IV antibiotics for the endocarditis, even if the cultures are negative. The patient is at risk for complication from inadequate treatment. This has been relayed to her as previously. Thank you for this consultation. MD USMAN Mann/ilia , 04:09 PM , 04:20 PM
[2018-09-15 17:18] VITALS: RESP 20
[2018-09-15 17:19] VITALS: BP 108/60; PULSE 91; TEMP 98.2; O2SAT 97
[2018-09-16] MEDS ORDERED: DAPTOMYCIN IV.SIG SCH (06:00)
[2018-09-16] MEDS ORDERED: SODIUM CHLOR 0.9% IV.SIG SCH (06:00)
== END 2018-09-15 22:24 | disposition left against medical advice (07) ==
LOC: NEPE 03:23 → NEDA 05:40 → NEDH 09:09 → N05 12:05
PROVIDERS: ADMIT Hospitalist; ATTEND Hospitalist